=== PATIENT | female | born 1945 | race Caucasian/White ===

== ENCOUNTER 2020-07-09 16:44 | Observation (INO) | payer MEDICARE, SELFPAY ==
[2020-07-09 16:45] VITALS: BP 156/66; PULSE 75; RESP 19; TEMP 36.4; O2SAT 98; BMI 36.5
--- NOTE | 2020-07-09 17:13 | ED.DCSUM_ITS ---
History of Present Illness Chief Complaint: Wound Informant: Patient Narrative: Patient presents with family for evaluation of wounds to her buttocks. Patient apparently had been living with family in [place] until the first of this month. She just moved up here with family. Family states that patient was initially able to ambulate some with a walker but over the past week or so has become more weak and now cannot ambulate at all. They went to change her depends tonight and noted blood in her diaper. They do not note this is coming from the rectum or from some sores that she has on her buttocks. Patient states she is really not been evaluated by a doctor in a couple of years. Past Medical History - Allergies and Home Meds Allergies/Adverse Reactions: Allergies Iodinated Contrast Media [CONTRASTS] Allergy (Verified 07/09/20 16:53) PT UNSURE OF REACTION simvastatin Allergy (Verified 07/09/20 16:53) PT UNSURE OF REACTION valdecoxib Allergy (Verified 07/09/20 16:53) PT UNSURE OF REACTION DIDOFENAC Allergy (Uncoded 07/09/20 16:53) PT UNSURE OF REACTION Surgical History: - - Prior colostomy with reversal Lives: With Family Review of Systems General: Denies: Chills, Fever Eyes: Denies: Visual changes - bilaterally ENT: Denies: Bilateral ear pain Cardiovascular: Denies: Chest pain Respiratory: Denies: Dyspnea, Cough Gastrointestinal: Denies: Abdominal pain, Vomiting Genitourinary: Denies: Dysuria Hematologic: Denies: Easy bruising, Easy bleeding Allergy: Denies: Uticaria Physical Exam Vital Signs/Narrative: Vital Signs Temp Pulse Resp BP Pulse Ox 07/09/20 16:45 97.6 F L 75 19 H 156/66 H 98 Inital Vital Signs reviewed: Yes General: Well nourished, Well developed Head: Normocephalic Neck: Supple Cardiovascular: Regular rate, Regular rhythm Respiratory: No distress, CTA bilaterally Abdomen: Soft, Nontender, Normal bowel sounds Back: - - 3 areas of skin breakdown on the buttocks. The largest measures 6 cm in length by 1 cm in width. No tunneling noted. 2 smaller wounds only a centimeter or so in diameter. Neurological: Alert, Oriented x3, - - Generalized weakness Psychological: Normal affect Diagnostic/Tx/Re-eval Laboratory Results 07/09/20 07/09/20 17:30 17:30 WBC 6.1 RBC 4.26 Hgb 12.9 Hct 41.4 MCV 97.2 MCH 30.3 MCHC 31.2 L RDW Std Deviation 46.9 H RDW Coeff of Ramesh 13.2 Plt Count 202 MPV 10.7 Immature Gran % (Auto) 0.200 Neut % (Auto) 64.6 Lymph % (Auto) 26.7 [place] % (Auto) 6.9 Eos % (Auto) 1.3 Baso % (Auto) 0.3 Absolute Neuts (auto) 3.9 Absolute Lymphs (auto) 1.62 Nucleated RBC % 0 Sodium 141 Potassium 4.3 Chloride 109 H Carbon Dioxide 27.0 Anion Gap 5 BUN 30 H Creatinine 0.98 Estim Creat Clear Calc 59.65 Est GFR (MDRD) Af Amer 72 Est GFR (MDRD) Non-Af 59 L BUN/Creatinine Ratio 30.7 H Glucose 112 H Calcium 8.3 L - Medical Decision Making Patient is feeling about bedside is asking if patient can be admitted so that she has time to get the appropriate supplies at her home to care for the patient. I think this is reasonable. She will require local wound care and physical therapy evaluation. Patient was discussed with the hospitalist. Mayito: Just after the patient went to the floor her urinalysis returned with evidence of infection. I spoke with hospitalist who will place the patient on antibiotics. ED Disposition - Plan for ED Patient: Disposition: Home or Assisted Living Diagnosis: Pressure sore, Unable to ambulate, UTI (urinary tract infection)
[2020-07-09 17:41] LABS: Absolute Lymphocyte Count 1.62 X10^3/uL (0.83-4.51); Absolute Neutrophil Count 3.9 X10^3/uL (2.0-7.7); Basophil# 0.02 X10^3/uL; Basophil% 0.3 % (0-1); Eosinophil# 0.08 X10^3/uL; Eosinophils% 1.3 % (0-5); Hematocrit 41.4 % (37-47); Hemoglobin 12.9 g/dL (12.0-15.0); Lymphocyte # 1.62 X10^3/ul (4.0); Lymphocyte % 26.7 % (19-41); Mean Corp Hgb Conc 31.2 g/dL (32-36); Mean Corpuscular Hgb 30.3 pg (27.0-32.0); Mean Corpuscular Volume 97.2 fL (81-99); Mean Platelet Vol. 10.7 fl (6.2-12.0); Monocyte# 0.42 X10^3/uL; Monocyte% 6.9 % (0-10); NRBC Flagged by Analyzer 0 % (0-5); Neutrophil # 3.92 X10^3/uL (2.7-7.7); Neutrophil % 64.6 % (47-70); Platelet Count 202 K/mm3 (150-450); RBC Distribution Width CV 13.2 % (11.6-14.6); RBC Distribution Width SD 46.9 fl (35.1-43.9); Red Blood Count 4.26 M/mm3 (4.2-5.4); White Blood Count 6.1 K/mm3 (4.4-11.0)
[2020-07-09 17:55] LABS: Anion Gap 5 (5-15); BUN 30 mg/dL (7-18); BUN/Creat Ratio 30.7 RATIO (10-20); Calcium,Total 8.3 mg/dL (8.5-10.1); Chloride 109 mmol/L (98-107); Creatinine, Serum 0.98 mg/dL (0.55-1.02); EST Glomerular Filtration Rate 59 mL/min (>60); Est Glom Filt Rate - Afr Amer 72 mL/min (>60); Estimated Creatinine Clearance 59.65 ml/min; Glucose 112 mg/dL (74-106); Potassium 4.3 mmol/L (3.5-5.1); Sodium Level 141 mmol/L (136-145)
[2020-07-09 18:34] LABS: Mucous, Urine 0 SEEN /hpf (<or=2+); Squamous Epithelial Cells - UA 0 SEEN /hpf (5-10)
--- NOTE | 2020-07-09 18:34 | HP.PCM_ITS ---
Problem List (1) Adult failure to thrive Status: Acute (2) Elevated BP without diagnosis of hypertension Status: Acute (3) Wound of right buttock Status: Acute Qualifiers: Encounter type: initial encounter Qualified Code(s): S31.819A - Unspecified open wound of right buttock, initial encounter (4) PVD (peripheral vascular disease) Status: Chronic (5) Obesity (BMI 30.0-34.9) Status: Chronic (6) Osteoarthritis Status: Chronic Qualifiers: Osteoarthritis location: unspecified site Osteoarthritis type: unspecified Qualified Code(s): M19.90 - Unspecified osteoarthritis, unspecified site History of Present Illness Date of Admission: 07/09/20 Chief Complaint: Failure to Thrive, Adult, Decubitous wounds The patient is a 74 y/o F w/ PMHx: Severe OA BL LE w/ difficulty ambulating, Obesity, History of BL LE lymphedema, recently moved from [place] where she had been with family and she notes they had not been taking her to see physicians nor assisting her with daily ADLs, frequently noted to be in bed with onset bedsores with worsening debility, family unable to help her ambulate requiring 2 person assist prompting family here in [place] with whom she recently moved in with bring her to the ED. Family was concerned especially because on the evening of presentation she was noted to have blood in her depends and they were not sure if it was from her rectum or her buttock wound. In the ED she has obvious occasional bleeding from a stage III buttock, right buttock wound. Work- up in the ED included T 97.6, HR 75, BP 156/66-->138/77, RR 18, 99% on RA, CBC w/ WBC 6.1, Hgb 12.9, Plts 202 without shift, BMP w/ Chl 109, BUN/Cr 30/0.98, Glucose 112. Past Medical History Past Medical History (Chronic Problems): Chronic Problems PVD (peripheral vascular disease) (Chronic) Obesity (BMI 30.0-34.9) (Chronic) Osteoarthritis (Chronic) Allergies Iodinated Contrast Media [CONTRASTS] Allergy (Verified 07/09/20 16:53) PT UNSURE OF REACTION simvastatin Allergy (Verified 07/09/20 16:53) PT UNSURE OF REACTION valdecoxib Allergy (Verified 07/09/20 16:53) PT UNSURE OF REACTION DIDOFENAC Allergy (Uncoded 07/09/20 16:53) PT UNSURE OF REACTION Home Medications: Ambulatory Orders Medication Instructions Recorded NK 07/09/20 Surgical History: - - Prior colostomy with reversal secondary to history of C scope mediated colonic perforation with partial bowel resection, appendectomy, hysterectomy, tonsillectomy.. Psychiatric History: No pertinent psych hx DIRECTOR OF CHILD [employer]EL[employer] History: No pertinent DIRECTOR OF CH[employer]EL[employer] history Lives: With Family - Patient currently transition from family [place] to family here in [place]. Smoking Status: Never smoker Tobacco Use: Secondhand - Patient never an active smoker herself but heavy secondhand exposure since childhood including her father and 2 's. Alcohol: None Drugs: None - *Family History Maternal History Items: Cancer Paternal History Items: - - Patient does not know any of her paternal family history. Review of Systems Constitutional: Reports: Weakness, Fatigue. Denies: Anorexia, Chills, Fever, Malaise, Weight Change HEENT: Denies: Head Aches, Sinus Congestion, Sinus Drainage Cardiovascular: Denies: Chest Pain, Palpitations Respiratory: Denies: Cough, Shortness of breath at rest, Sputum production Gastrointestinal: Denies: Abdominal Pain, Nausea, Vomiting Genitourinary: Denies: Dysuria Musculoskeletal: Reports: Joint Pain. Denies: Joint Tenderness Skin: Reports: Skin Changes, Wounds. Denies: Rash Neurological: Denies: Numbness, Tingling, Focal weakness Psychiatric: Denies: Anxiety, Depression, Homicidal Ideations, Suicidal Ideations Hematologic/ Lymphatic: Denies: Easy Bruising, Easy Bleeding VTE Information - Inpt Only VTE Present on Admission: No VTE Mechan Device Prophylaxis: SCD's VTE Pharm Prophylaxis ordered?: Yes Patient Problems: Active and Suspected Problems Pressure sore (Acute) Unable to ambulate (Acute) UTI (urinary tract infection) (Acute) Elevated BP without diagnosis of hypertension (Acute) Wound of right buttock (Acute) Adult failure to thrive (Acute) Subjective: Patient laying in the ED bed, no acute distress, conversing, very talkative. Objective: Physical Examination: General: awake, alert, oriented x 3 and cooperative, seated upright in the ED bed, no acute distress. Skin: normal color, turgor, no icterus, cyanosis except noted bilateral lower extremity stasis disease as well as right buttock approximate 6 x 1 cm nontunneling stasis wound with no infected appearance with some cracking and with movement some active small bleeding noted. HEENT: AT/NC, EOMI, PERRLA, MMM, no carotid bruits or JVD noted. Lungs: Diminished breath sounds, greater bases, appropriate effort, no rales, ronchi or wheezing. Heart: Regular rate and rhythm; no gallop, rub audible. Abdomen: soft, obese, NTTP, ND, distant normal BS, no HSM. Extremities: no cyanosis or clubbing, minimal ankle nonpitting edema, see skin. Neurological: patient awake, alert, oriented as noted; cognitive function intact; pupils equally reactive to light and accomodation; cranial nerves II-XII grossly normal, moving all 4 extremities, no focal deficits, strength moderately to severely global decrease secondary to severe osteoarthritis, debility. Psychiatric: affect appears very talkative, normal, no acute evidence of depressive or anxiety feelings. - Physical Exam Vitals/I&O's: Vital Signs Temp Pulse Resp BP Pulse Ox 97.6 F L 75 19 H 156/66 H 98 07/09/20 16:45 07/09/20 16:45 07/09/20 16:45 07/09/20 16:45 07/09/20 16:45 Oxygen Delivery Method Room Air Weight: 162 lb 14.746 oz Body Mass Index (BMI) 36.5 Laboratory Results 07/09/20 17:30: WBC 6.1, RBC 4.26, Hgb 12.9, Hct 41.4, MCV 97.2, MCH 30.3, MCHC 31.2 L, RDW Std Deviation 46.9 H, RDW Coeff of Ramesh 13.2, Plt Count 202, MPV 10.7, Immature Gran % (Auto) 0.200, Neut % (Auto) 64.6, Lymph % (Auto) 26.7, [place] % (Auto) 6.9, Eos % (Auto) 1.3, Baso % (Auto) 0.3, Absolute Neuts (auto) 3.9, Absolute Lymphs (auto) 1.62, Nucleated RBC % 0 07/09/20 17:30: Sodium 141, Potassium 4.3, Chloride 109 H, Carbon Dioxide 27.0, Anion Gap 5, BUN 30 H, Creatinine 0.98, Estim Creat Clear Calc 59.65, Est GFR (MDRD) Af Amer 72, Est GFR (MDRD) Non-Af 59 L, BUN/Creatinine Ratio 30.7 H, Glucose 112 H, Calcium 8.3 L Assessment/Plan All Active Problems Pressure sore (Acute) Unable to ambulate (Acute) UTI (urinary tract infection) (Acute) Elevated BP without diagnosis of hypertension (Acute) Wound of right buttock (Acute) Adult failure to thrive (Acute) The patient is a 74 y/o F w/ PMHx: Severe OA BL LE w/ difficulty ambulating, Obesity, History of BL LE lymphedema, recently moved from [place] where she had been with family and she notes they had not been taking her to see physicians nor assisting her with daily ADLs, frequently noted to be in bed with onset bedsores with worsening debility. 1. Adult failure to thrive complicated by Severe OA, Wheelchair/Bed near bound: Patient with recent transition from family in [place] where from description she was receiving minimal care to family here in [place], will admit to medical surgical floor, will continue frequent every 2 position changes to offload right buttock wounds, wound RN consulted, dressings to assist especially with noted occasional active bleeding with positional changes, no obvious infection, will need referral at discharge for podiatry as poor foot care, pending UA upon evaluation, PT, OT, case management consultations for discharge planning as patient may benefit from skilled facility prior to transition back to family. 2. Elevated BP without hypertensive diagnosis: Patient denies any hypertensive history, previously on as needed Lasix but she notes this was secondary to lower extremity swelling which she denies having currently, continue to monitor and add regimen if appropriate. As needed IV hydralazine. 3. Stage III right buttock wound: We will offload, positional changes, wound RN consultation, dressing changes, no obvious infection, barrier cream and devices as needed. Does have some small fresh bleeding when moved secondary to cracking open. No tunneling noted. 4. Bilateral lower extremity stasis disease: Mild bilateral lower extremity venous stasis disease, will cautious add aspirin monitor small amount of active bleeding from a buttock wound especially with movements, cracking open but would benefit from adding this once appropriate. 5. Obesity: Weight loss and lifestyle changes encouraged. 6. DVT prophylaxis: SCDs, Lovenox cautiously as noted. OBSV E&M: 26923 Initial observation care L3
[2020-07-09 18:36] LABS: Color, Urine Yellow (Yellow); Glucose, Dipstick Normal (Normal); Ketone-Dipstick Negative (Negative); Leukocyte Esterase-Dipstick 500 /ul (Negative); Nitrite-Dipstick Positive (Negative); Occult Blood-Urine 25 /ul (Negative); Protein-Dipstick 15 mg/dl (Negative); Urine Bilirubin Dipstick Negative (Negative); Urine Clarity Cloudy (Clear); Urine Urobilinogen Normal (Normal)
[2020-07-09 18:45] LABS: Bacteria 4+ /hpf (None Seen); Red Blood Cells-Urine 0-5 SEEN /hpf (0-5); White Blood Cells 50-100 SEEN /hpf (0-5)
[2020-07-09 18:58] VITALS: BP 113/83; PULSE 73; RESP 13; TEMP 36.8; O2SAT 95
[2020-07-09 20:19] VITALS: BMI 33.5
[2020-07-09 20:20] VITALS: BP 138/77; PULSE 62; RESP 18; TEMP 36.7; O2SAT 99
[2020-07-09 20:28] VITALS: BMI 33.5
[2020-07-09 20:33] LABS: Magnesium 2.5 mg/dL (1.6-2.6)
[2020-07-09] MEDS: 0.9% Normal Saline 1,000 ML 100 ML IV (21:30)
[2020-07-09] MEDS: Ceftriaxone 1 GM/50 ML BAG IV (21:32)
[2020-07-09] MEDS: Famotidine 20 MG Tablet PO (21:36)
[2020-07-09] MEDS: Menthol/Lanolin/Calamine/Znox 113 GM Tube 1 APPLIC TOPICAL (21:36)
[2020-07-09 23:51] VITALS: RESP 16; O2SAT 98
[2020-07-10] MEDS: DiphenhydrAMINE 25 MG Capsule PO (01:43)
[2020-07-10 02:20] VITALS: BP 147/53; PULSE 63; RESP 16; TEMP 36.8; O2SAT 99
[2020-07-10 06:26] LABS: Absolute Lymphocyte Count 1.87 X10^3/uL (0.83-4.51); Absolute Neutrophil Count 2.5 X10^3/uL (2.0-7.7); Basophil# 0.03 X10^3/uL; Basophil% 0.6 % (0-1); Eosinophil# 0.13 X10^3/uL; Eosinophils% 2.6 % (0-5); Hematocrit 37.1 % (37-47); Hemoglobin 11.4 g/dL (12.0-15.0); Lymphocyte # 1.87 X10^3/ul (4.0); Lymphocyte % 37.9 % (19-41); Mean Corp Hgb Conc 30.7 g/dL (32-36); Mean Corpuscular Hgb 29.5 pg (27.0-32.0); Mean Corpuscular Volume 96.1 fL (81-99); Mean Platelet Vol. 10.7 fl (6.2-12.0); Monocyte# 0.43 X10^3/uL; Monocyte% 8.7 % (0-10); NRBC Flagged by Analyzer 0 % (0-5); Neutrophil # 2.45 X10^3/uL (2.7-7.7); Neutrophil % 49.8 % (47-70); Platelet Count 184 K/mm3 (150-450); RBC Distribution Width CV 13.1 % (11.6-14.6); RBC Distribution Width SD 46.1 fl (35.1-43.9); Red Blood Count 3.86 M/mm3 (4.2-5.4); White Blood Count 4.9 K/mm3 (4.4-11.0)
[2020-07-10] MEDS: 0.9% Normal Saline 1,000 ML 100 ML IV ×2 (06:38→17:38)
[2020-07-10 06:51] LABS: ALB/GLOB Ratio 0.8 RATIO (0.9-2.4); AST(SGOT) 9 U/L (15-37); Alanine Aminotransfer ALT/SGPT 13 U/L (13-56); Albumin, Serum 2.8 g/dL (3.2-5.0); Alkaline Phosphatase 67 U/L (45-117); Anion Gap 2 (5-15); BUN 26 mg/dL (7-18); BUN/Creat Ratio 29.3 RATIO (10-20); Chloride 109 mmol/L (98-107); Creatinine, Serum 0.89 mg/dL (0.55-1.02); EST Glomerular Filtration Rate 66 mL/min (>60); Est Glom Filt Rate - Afr Amer 80 mL/min (>60); Estimated Creatinine Clearance 62.48 ml/min; Globulin 3.3 g/dL (2.2-4.2); Glucose 81 mg/dL (74-106); Potassium 4.2 mmol/L (3.5-5.1); Protein, Total 6.1 g/dL (6.4-8.2); Sodium Level 138 mmol/L (136-145)
[2020-07-10 08:42] VITALS: BP 150/81; PULSE 57; RESP 18; TEMP 36.7; O2SAT 100
[2020-07-10] MEDS: Ceftriaxone 1 GM/50 ML BAG IV (10:18)
[2020-07-10] MEDS: Menthol/Lanolin/Calamine/Znox 113 GM Tube 1 APPLIC TOPICAL ×2 (10:19→20:58)
[2020-07-10] MEDS: Famotidine 20 MG Tablet PO ×2 (10:20→20:58)
--- NOTE | 2020-07-10 10:45 | PN_ITS ---
Patient Problems: Active and Suspected Problems Pressure sore (Acute) Unable to ambulate (Acute) UTI (urinary tract infection) (Acute) Elevated BP without diagnosis of hypertension (Acute) Wound of right buttock (Acute) Adult failure to thrive (Acute) Subjective: Patient seen and examined. She was noted to be having some rectal bleeding today, which was painless. She has no other complaints, and review of systems was otherwise negative. Hemoglobin noted to have dropped from 12.9-11.4 that this may have a component of hemodilution as WBC has also dropped and platelets have also dropped. Vitals/I&O's: Vital Signs Temp Pulse Resp BP Pulse Ox 98.1 F 57 L 18 150/81 H 100 07/10/20 08:42 07/10/20 08:42 07/10/20 08:42 07/10/20 08:42 07/10/20 08:42 Oxygen Delivery Method Room Air Weight: 154 lb 15.759 oz Body Mass Index (BMI) 33.5 Intake and Output for Last 24 Hours 07/08/20 07/09/20 07/10/20 23:59 23:59 23:59 Intake Total 50 / 350 1881.66 / 1881.66 Output Total 400 / 400 Balance 50 / 350 1481.66 / 1481.66 General: Alert, Oriented x3, Cooperative, No apparent distress, - - frail HEENT: Atraumatic, PERRLA, EOMI, Normocephalic Oral: Dry Mucosa Neck: Supple, No JVD, Negative Carotid Bruits Lungs: Clear to auscultation, Normal air movement, No rhonchi, No wheeze, No rales Cardiovascular: Regular rate, Regular Rhythm, Normal S1, Normal S2, No murmurs Abdomen: Bowel Sounds Present, Soft, Non Tender, Non-Distended, No Hepato- splenomegaly Extremities: No clubbing, No cyanosis, Capillary Refill Less than 3 Seconds, - - mild 1+ bipedal edema; skin is flaky Skin: - - has stage 3 decubitus ulcer on her right buttock Musculoskeletal: No Tenderness to Palpation of Joints or Extremities Lymphatic: No Cervical, Supraclavicular, or Inguinal Adenopathy Neurological: Cranial nerves II-XII grossly intact, Neuro grossly intact, Motor Exam 5/5 strength throughout Psych/Mental Status: Normal Affect, Appropriate, Alert and oriented to time, place, person, mood and affect Laboratory Results 07/09/20 17:30: WBC 6.1, RBC 4.26, Hgb 12.9, Hct 41.4, MCV 97.2, MCH 30.3, MCHC 31.2 L, RDW Std Deviation 46.9 H, RDW Coeff of Ramesh 13.2, Plt Count 202, MPV 10.7, Immature Gran % (Auto) 0.200, Neut % (Auto) 64.6, Lymph % (Auto) 26.7, [place] % (Auto) 6.9, Eos % (Auto) 1.3, Baso % (Auto) 0.3, Absolute Neuts (auto) 3.9, Absolute Lymphs (auto) 1.62, Nucleated RBC % 0 07/09/20 17:30: Sodium 141, Potassium 4.3, Chloride 109 H, Carbon Dioxide 27.0, Anion Gap 5, BUN 30 H, Creatinine 0.98, Estim Creat Clear Calc 59.65, Est GFR (MDRD) Af Amer 72, Est GFR (MDRD) Non-Af 59 L, BUN/Creatinine Ratio 30.7 H, Glucose 112 H, Calcium 8.3 L 07/09/20 17:30: Magnesium 2.5 07/09/20 18:30: Urine Color Yellow, Urine Clarity Cloudy, Urine pH 7.0, Ur Specific Sunburst 1.010, Urine Protein 15 H, Urine Glucose (UA) Normal, Urine Ketones Negative, Urine Occult Blood 25 H, Urine Nitrite Positive H, Urine Bilirubin Negative, Urine Urobilinogen Normal, Ur Leukocyte Esterase 500 H, Urine RBC 0-5 SEEN, Urine WBC 50-100 SEEN, Ur Squamous Epith Cells 0 SEEN, Urine Bacteria 4+, Urine Mucus 0 SEEN 07/10/20 05:59: WBC 4.9, RBC 3.86 L, Hgb 11.4 L, Hct 37.1, MCV 96.1, MCH 29.5, MCHC 30.7 L, RDW Std Deviation 46.1 H, RDW Coeff of Ramesh 13.1, Plt Count 184, MPV 10.7, Immature Gran % (Auto) 0.400, Neut % (Auto) 49.8, Lymph % (Auto) 37.9, [place] % (Auto) 8.7, Eos % (Auto) 2.6, Baso % (Auto) 0.6, Absolute Neuts (auto) 2.5, Absolute Lymphs (auto) 1.87, Nucleated RBC % 0 07/10/20 05:59: Sodium 138, Potassium 4.2, Chloride 109 H, Carbon Dioxide 27.0, Anion Gap 2 L, BUN 26 H, Creatinine 0.89, Estim Creat Clear Calc 62.48, Est GFR (MDRD) Af Amer 80, Est GFR (MDRD) Non-Af 66, BUN/Creatinine Ratio 29.3 H, Glucose 81, Calcium 8.0 L, Total Bilirubin 0.50, AST 9 L, ALT 13, Alkaline Phosphatase 67, Total Protein 6.1 L, Albumin 2.8 L, Globulin 3.3, Albumin/Rekha bulin Ratio 0.8 L Current Medications Acetaminophen (Acetaminophen 325 Mg Tablet) 650 mg PO Q6H PRN PRN PRN Reason: Pain Score 1-10/Temp > 100.7 F Al Hydroxide/Mg Hydroxide (Mag Hydrox/Al Hydrox/Simeth 30 Ml Udc) 30 ml PO Q6H PRN PRN PRN Reason: Gastric Burning Albuterol Sulfate (Albuterol 2.5 Mg/3 Ml Vial.Neb.) 2.5 mg INHALATION Q2H PRN PRN PRN Reason: Dyspnea, wheezing Calamine/Phenol (Menthol/Lanolin/Calamine/Znox 113 Gm Tube) 1 applic TOPICAL 4X/DAY [facility]; Protocol Last Admin: 07/10/20 10:19 Dose: 1 applic Documented by: Diphenhydramine HCl (Diphenhydramine 25 Mg Capsule) 25 mg PO Q6H PRN PRN PRN Reason: ITCHING Famotidine (Famotidine 20 Mg Tablet) 20 mg PO BID [facility] Last Admin: 07/10/20 10:20 Dose: 20 mg Documented by: Guaifenesin (Guaifenesin 10 Ml Udc (200mg/10ml)) 20 ml PO Q4H PRN PRN PRN Reason: COUGH Hydralazine HCl (Hydralazine 20 Mg/Ml Vial) 10 mg IV Q4H PRN PRN PRN Reason: SBP > 160 Sodium Chloride () 1,000 mls @ 100 mls/hr IV .Q10H [facility] Last Infusion: 07/10/20 10:19 Dose: 0 mls/hr Documented by: Ceftriaxone Sodium (Rocephin) 1 gm in 50 mls @ 100 mls/hr IV Q24 JESSI Last Admin: 07/10/20 10:18 Dose: 100 mls/hr Documented by: Sodium Chloride () 250 mls @ 15 mls/hr IV .[id number] PRN PRN Reason: Saline Flush Sodium Chloride () 250 mls @ 15 mls/hr IV .[id number] PRN PRN Reason: Additional IVPB Infusion Magnesium Hydroxide (Magnesium Hydroxide 30 Ml Udc) 30 ml PO DAILY PRN PRN PRN Reason: Constipation Melatonin (Melatonin 3 Mg Tablet) 3 mg PO QHS PRN PRN PRN Reason: INSOMNIA Nitroglycerin (Nitroglycerin (Inpatient Use) 0.4 Mg Tab.Subl) 0.4 mg SL Q5M PRN PRN Reason: CARDIAC/CHEST PAIN Ondansetron HCl (Ondansetron 4 Mg/2 Ml Vial) 4 mg IV Q8H PRN PRN PRN Reason: NAUSEA/VOMITING Prochlorperazine Edisylate (Prochlorperazine 10 Mg/2 Ml Vial) 5 mg IV Q4H PRN PRN PRN Reason: Breakthrough nausea/vomiting Psyllium Hydrophilic Mucilloid (Psyllium 1 Packet) 1 packet PO DAILY PRN PRN PRN Reason: Constipation Senna/Docusate Sodium (Senna/Docusate Sodium 1 Tablet) 2 tablet PO BID PRN PRN PRN Reason: Constipation Sodium Chloride (0.9% Saline Lock 10 Ml Syringe) 10 - 40 ml IV UD PRN PRN Reason: SALINE FLUSH Sodium Chloride/Electrolytes (Electrolyte Solution/Peg's 4000 Ml) 2,000 ml PO X1 ONE Stop: 07/10/20 17:01 Throat Lozenges (Benzocaine/Menthol 1 Lozenge) 1 lozenge MUCOUS MEM Q2H PRN PRN PRN Reason: SORE THROAT STROKE Vital Signs/Narrative: Vital Signs Temp Pulse Resp BP Pulse Ox 07/10/20 08:42 98.1 F 57 L 18 150/81 H 100 Medical Necessity - Tobacco Use Smoking Status: Never smoker Tobacco Use: Secondhand - Patient never an active smoker herself but heavy secondhand exposure since childhood including her father and 2 's. Assessment/Plan All Active Problems Pressure sore (Acute) Unable to ambulate (Acute) UTI (urinary tract infection) (Acute) Elevated BP without diagnosis of hypertension (Acute) Wound of right buttock (Acute) Adult failure to thrive (Acute) #UTI * UA showed evidence of UTI. Currently on IV ceftriaxone. Blood and urine cultures pending. #Lower GI bleed * Patient has some rectal bleeding today. It was initially thought to be coming from her wound but per nurse, it seemed to be more of rectal bleeding. Consult general surgery. Keep n.p.o. for now. Hold all blood thinners. * Hemoglobin dropped to 11.4 from 12.9 on admission. Also lines have dropped so this may likely be hemodilution as well. * #Debility and failure to thrive * PT OT on board. Fall precautions. #Sacral decubitus ulcer * Stage III * present on admission * wound care consulted * #Obesity: BMI more than 30. Counseled on diet and lifestyle changes. DVT prophylaxis: SCDs Diet prophylaxis: Start PPI. # Inpatient E&M: 87752 Subs Hosp L2
--- NOTE | 2020-07-10 10:53 | CON.PCM_ITS ---
- Consult Date of Consult: 07/10/20 - Reason for Consult Chief Complaint: asked by hospitalists for colonoscopy for patient with rectal bleeding History of Present Illness: 74 y/o WF, essentially non ambulatory, presented to hospital because her family could not longer care for her at home. She has recently relocated from [place] to [place]. She also notes rectal bleeding. She has decubitus ulcer of her right buttock. She has intermittent cramping abdominal pain. She notes symptoms of fecal urgency and loose bowel movements, especially after eating. She had colonoscopy in [place] about 10-15 years ago, had perforation and required colostomy creation. She states that she has had numerous bowel problems since, as described above. She states that she never wants to undergo colonoscopy again. Past Medical History: decubitus ulcer generalized weakness and deconditioned Past Surgical History: Tonsillectomy tubes tied Hysterectomy colon surgery, creation of colostomy, colostomy takedown Hernia repair cataract surgery appendectomy Medications: denies taking chronic medications Allergies: IV contrast dye, simvastatin, valdecoxib Social history: TOB use denies Review of Systems: General - denies fevers, has generalized weakness Cardiovascular denies chest pain Pulmonary denies coughing up blood Gastrointestinal noted to have bright red blood per rectum, see HPI Neurological denies seizures Genitourinary denies blood in urine Hematological denies spontaneous/prolonged bleeding Skin decubitus ulcers Musculoskeletal essentially non ambulatory - severe osteopenia Endocrine denies diabetes Psychological denies hallucinations Physical examination: Vital signs Temp 98.2F BP 147/53 HR 63 RR 16 General WD/WN WF in no apparent distress, alert and oriented, not septic appearing HEENT Normocephalic. EOM intact with sclera clear . Neck is supple with no jugular venous distention noted. Trachea is midline. Lungs normal respiratory excursion, no adventitial sounds noted. No labored breathing noted, such as retractions. No cough heard. Heart regular. Abdomen soft and benign. ventral hernia noted and previous ostomy site - non tender Extremities swelling of lower extremities Genitourinary/Rectal deferred Skin .right buttock skin ulcer Neurological non focal. Psychological normal affect, patient is calm and appropriate Impression: rectal bleeding Discussion/Plan: I have discussed the above with the patient. I have offered colonoscopy, possible biopsies for evaluation. Patient refuses this. She states that she had perforation of the colon 10-15 years ago in [place] from colonoscopy and has had problems with her bowels since. She had to have emergency surgery with colostomy creation and had to deal with that for 6 months. She absolutely does not want to undergo another colonoscopy ever again. I will abide by her wishes. I have restarted a regular diet for the patient and cancelled procedure of colonoscopy. I will sign off on this case, please re-consult if any changes. .
[2020-07-10 14:25] VITALS: BP 147/62; PULSE 55; RESP 18; TEMP 36.9; O2SAT 98
[2020-07-10] MEDS: Electrolyte Solution/Peg's 4000 ML 2000 ML PO (14:28)
[2020-07-10 17:42] VITALS: BP 133/56; PULSE 59; RESP 16; TEMP 36.6; O2SAT 100
[2020-07-10 20:00] VITALS: PULSE 58
[2020-07-10 22:30] VITALS: BP 157/80; PULSE 58; RESP 16; TEMP 36.5; O2SAT 99
[2020-07-11] VITALS (11 sets, daily range): BP systolic 113–151; BP diastolic 52–85; PULSE 53–75; RESP 16–18; TEMP 36–36.8; O2SAT 97–100
[2020-07-11] MEDS: 0.9% Normal Saline 1,000 ML 100 ML IV ×2 (04:48→15:59)
[2020-07-11 06:04] LABS: Absolute Lymphocyte Count 1.79 X10^3/uL (0.83-4.51); Absolute Neutrophil Count 2.1 X10^3/uL (2.0-7.7); Basophil# 0.03 X10^3/uL; Basophil% 0.7 % (0-1); Eosinophil# 0.14 X10^3/uL; Eosinophils% 3.2 % (0-5); Hematocrit 40.3 % (37-47); Hemoglobin 12.4 g/dL (12.0-15.0); Lymphocyte # 1.79 X10^3/ul (4.0); Lymphocyte % 40.4 % (19-41); Mean Corp Hgb Conc 30.8 g/dL (32-36); Mean Corpuscular Hgb 30.1 pg (27.0-32.0); Mean Corpuscular Volume 97.8 fL (81-99); Mean Platelet Vol. 10.5 fl (6.2-12.0); Monocyte# 0.33 X10^3/uL; Monocyte% 7.4 % (0-10); NRBC Flagged by Analyzer 0 % (0-5); Neutrophil # 2.13 X10^3/uL (2.7-7.7); Neutrophil % 48.1 % (47-70); Platelet Count 190 K/mm3 (150-450); RBC Distribution Width SD 46.5 fl (35.1-43.9); Red Blood Count 4.12 M/mm3 (4.2-5.4); White Blood Count 4.4 K/mm3 (4.4-11.0)
[2020-07-11 06:27] LABS: Anion Gap 4 (5-15); BUN 14 mg/dL (7-18); BUN/Creat Ratio 18.5 RATIO (10-20); Calcium,Total 8.2 mg/dL (8.5-10.1); Chloride 110 mmol/L (98-107); Creatinine, Serum 0.76 mg/dL (0.55-1.02); EST Glomerular Filtration Rate 80 mL/min (>60); Est Glom Filt Rate - Afr Amer 97 mL/min (>60); Estimated Creatinine Clearance 56.08 ml/min; Glucose 78 mg/dL (74-106); Potassium 4.2 mmol/L (3.5-5.1); Sodium Level 141 mmol/L (136-145)
--- NOTE | 2020-07-11 10:44 | PCM.PN.HOSP ---
Patient Problems: Active and Suspected Problems Pressure sore (Acute) Unable to ambulate (Acute) UTI (urinary tract infection) (Acute) Elevated BP without diagnosis of hypertension (Acute) Wound of right buttock (Acute) Adult failure to thrive (Acute) Reason for Visit: Follow-up on acute UTI/debility/failure to thrive/GI bleed Subjective: Patient was seen and examined. Denied any new complaint. She is going for colonoscopy today. She denies any fever or chills. Objective: Physical exam: General: Alert, Oriented x3, Cooperative, No apparent distress, obese HEENT: Atraumatic, PERRLA, EOMI, Normocephalic Oral: Moist Mucosa Neck: Supple Lungs: Normal air movement, Diminished Cardiovascular: Regular rate, Regular Rhythm, Normal S1, Normal S2, No murmurs Abdomen: Bowel Sounds Present, Soft, Non Tender, Non-Distended, No Hepato-splenomegaly Extremities: Bilateral pedal edema +1, Skin: No rashes Vitals/I&O's: Vital Signs Temp Pulse Resp BP Pulse Ox 97.9 F 60 18 151/85 H 100 07/11/20 09:44 07/11/20 09:44 07/11/20 09:44 07/11/20 09:44 07/11/20 09:44 Oxygen Delivery Method Room Air Weight: 70.9 kg Body Mass Index (BMI) 33.5 Intake and Output for Last 24 Hours 07/09/20 07/10/20 07/11/20 23:59 23:59 23:59 Intake Total 50 / 350 3673.33 / 3673.33 1000 / 1000 Output Total 625 / 625 Balance 50 / 350 3048.33 / 3048.33 1000 / 1000 Microbiology Past 72 Hours 07/11/20 07:52 Mucosa - Nose SARS-CoV-2 Antigen (Rapid) - Final Laboratory Results 07/11/20 05:48: WBC 4.4, RBC 4.12 L, Hgb 12.4, Hct 40.3, MCV 97.8, MCH 30.1, MCHC 30.8 L, RDW Std Deviation 46.5 H, RDW Coeff of Ramesh 13.0, Plt Count 190, MPV 10.5, Immature Gran % (Auto) 0.200, Neut % (Auto) 48.1, Lymph % (Auto) 40.4, [place] % (Auto) 7.4, Eos % (Auto) 3.2, Baso % (Auto) 0.7, Absolute Neuts (auto) 2.1, Absolute Lymphs (auto) 1.79, Nucleated RBC % 0 07/11/20 05:48: Sodium 141, Potassium 4.2, Chloride 110 H, Carbon Dioxide 27.0, Anion Gap 4 L, BUN 14, Creatinine 0.76, Estim Creat Clear Calc 56.08, Est GFR (MDRD) Af Amer 97, Est GFR (MDRD) Non-Af 80, BUN/Creatinine Ratio 18.5, Glucose 78, Calcium 8.2 L Current Medications Acetaminophen (Acetaminophen 325 Mg Tablet) 650 mg PO Q6H PRN PRN PRN Reason: Pain Score 1-10/Temp > 100.7 F Al Hydroxide/Mg Hydroxide (Mag Hydrox/Al Hydrox/Simeth 30 Ml Udc) 30 ml PO Q6H PRN PRN PRN Reason: Gastric Burning Albuterol Sulfate (Albuterol 2.5 Mg/3 Ml Vial.Neb.) 2.5 mg INHALATION Q2H PRN PRN PRN Reason: Dyspnea, wheezing Calamine/Phenol (Menthol/Lanolin/Calamine/Znox 113 Gm Tube) 1 applic TOPICAL 4X/DAY [facility]; Protocol Last Admin: 07/10/20 20:58 Dose: 1 applic Documented by: Diphenhydramine HCl (Diphenhydramine 25 Mg Capsule) 25 mg PO Q6H PRN PRN PRN Reason: ITCHING Famotidine (Famotidine 20 Mg Tablet) 20 mg PO BID [facility] Last Admin: 07/10/20 20:58 Dose: 20 mg Documented by: Guaifenesin (Guaifenesin 10 Ml Udc (200mg/10ml)) 20 ml PO Q4H PRN PRN PRN Reason: COUGH Hydralazine HCl (Hydralazine 20 Mg/Ml Vial) 10 mg IV Q4H PRN PRN PRN Reason: SBP > 160 Sodium Chloride () 1,000 mls @ 100 mls/hr IV .Q10H [facility] Last Admin: 07/11/20 04:48 Dose: 100 mls/hr Documented by: Ceftriaxone Sodium (Rocephin) 1 gm in 50 mls @ 100 mls/hr IV Q24 [facility] Last Infusion: 07/10/20 10:50 Dose: Infused Documented by: Sodium Chloride () 250 mls @ 15 mls/hr IV .[id number] PRN PRN Reason: Saline Flush Sodium Chloride () 250 mls @ 15 mls/hr IV .[id number] PRN PRN Reason: Additional IVPB Infusion Pantoprazole Sodium 40 mg/ (Sodium Chloride) 110 mls @ 330 mls/hr IV Q24 [facility] Last Infusion: 07/10/20 12:45 Dose: Infused Documented by: Magnesium Hydroxide (Magnesium Hydroxide 30 Ml Udc) 30 ml PO DAILY PRN PRN PRN Reason: Constipation Melatonin (Melatonin 3 Mg Tablet) 3 mg PO QHS PRN PRN PRN Reason: INSOMNIA Nitroglycerin (Nitroglycerin (Inpatient Use) 0.4 Mg Tab.Subl) 0.4 mg SL Q5M PRN PRN Reason: CARDIAC/CHEST PAIN Ondansetron HCl (Ondansetron 4 Mg/2 Ml Vial) 4 mg IV Q8H PRN PRN PRN Reason: NAUSEA/VOMITING Prochlorperazine Edisylate (Prochlorperazine 10 Mg/2 Ml Vial) 5 mg IV Q4H PRN PRN PRN Reason: Breakthrough nausea/vomiting Psyllium Hydrophilic Mucilloid (Psyllium 1 Packet) 1 packet PO DAILY PRN PRN PRN Reason: Constipation Senna/Docusate Sodium (Senna/Docusate Sodium 1 Tablet) 2 tablet PO BID PRN PRN PRN Reason: Constipation Sodium Chloride (0.9% Saline Lock 10 Ml Syringe) 10 - 40 ml IV UD PRN PRN Reason: SALINE FLUSH Throat Lozenges (Benzocaine/Menthol 1 Lozenge) 1 lozenge MUCOUS MEM Q2H PRN PRN PRN Reason: SORE THROAT STROKE Vital Signs/Narrative: Vital Signs Temp Pulse Resp BP Pulse Ox 07/11/20 09:44 97.9 F 60 18 151/85 H 100 07/11/20 07:04 97 Medical Necessity - Tobacco Use Smoking Status: Never smoker Tobacco Use: Secondhand - Patient never an active smoker herself but heavy secondhand exposure since childhood including her father and 2 's. Assessment/Plan All Active Problems Pressure sore (Acute) Unable to ambulate (Acute) UTI (urinary tract infection) (Acute) Elevated BP without diagnosis of hypertension (Acute) Wound of right buttock (Acute) Adult failure to thrive (Acute) 1. Acute lower GI bleed, Hb stable General surgery consulted for colonoscopy, continue on famotidine 2. Acute E. coli UTI, continue on IV ceftriaxone, await speciation 3. Stage III sacral decubitus ulcers, and RN consulted 4. DVT prophylaxis with SCDs Inpatient E&M: 19354 Subs Hosp L2
--- NOTE | 2020-07-11 11:00 | CASEMGMT ---
JOSE ALBERTO ABDI Assessment: Face to Face with pt for initial transition planning/care coordination assessment. JOSE ALBERTO ABDI introduced self and role at [facility], pt voices understanding and consents to assessment. Pt is A/O x4 and answers all questions appropriately at this time. Pt sitting up in chair in no distress, very talkative. Care providers, pharmacy, and demographics verified/updated. Admitting Dx: FTT, chronic decubitus PCP: Pt recently moved from [place] and has not established a PCP yet. States her daughter in law is working to get her into Umberto Aquino's office. Provided list of local PCP's. Specialists: Pt denies having specialists. Preferred Pharmacy: Pt has not yet established a pharmacy. Insurance: [facility] Prescription Benefit: yes LW/HPOA: Pt states she is going to get her LW and DPOA set up. Denies need for further info regarding AD. LNOK: Son Davie Frost and daughter in law Fabi Frost Living Arrangements: Pt lives in a ground level apt with 1 step to enter. Pt lives alone but her daughter in law comes daily to check on her. Pt needs assistance from daughter in law with bathing and lower body dressing. Pt denies concerns at home. Transportation: Pt states her son is able to provide transportation and denies concerns with transportation. DME/HHC/SNF: Pt states she has a walker at home. Recently purchased a shower chair but it was too tall so it was returned. She states she has had HHC while in [place]. Currently pt dtr in law manages pt wounds daily with dressing changes. She has stayed in [facility] and [facility] prior to her leaving to go to [place]. Pt states she moved her 2 wks ago. She states she would like to go home and is open to HHC but is unsure if that will be enough for her. She is open to a short stay for rehab in SNF if it is recommended. Notified Jonah GAMEZ. Pt states no further concerns/needs. CM to follow therapy and need for HHC vs SNF. Advised pt to ask CM if any further question/concerns/needs arise, voices understanding. Pt Goal: Home with HHC or SNF if recommended Plan: TBD based on therapy recommendations. 1125-RN JIN in to discuss GARCIA form with patient. JOSE ALBERTO ABDI explained GARCIA form, patient voiced understanding. Pt signed form and filed in chart. Pt provided with a copy of signed GARCIA form. Patient had no further questions or concerns at this time.
[2020-07-11] MEDS: Menthol/Lanolin/Calamine/Znox 113 GM Tube 1 APPLIC TOPICAL ×3 (11:26→20:42)
[2020-07-11] MEDS: Ceftriaxone 1 GM/50 ML BAG IV (11:26)
--- NOTE | 2020-07-11 14:27 | NURSING ---
Was asked to see patient for pressure injury to the right buttock. Pt had been up in the chair earlier when this nurse tried to assess wound. pt is currently off the unit for a procedure. A Mepilex dressing had been applied last pm so this nurse will attempt to assess either later today or tomorrow am.
--- NOTE | 2020-07-11 15:08 | OP.COLON_ITS ---
Patient Name: Lore Fournier Procedure Date: 07/11/2020 2:05 PM Date of : 1945 Age: 74 Procedure: Colonoscopy Indications: Rectal bleeding Providers: Debora Perez MD Medicines: See the Anesthesia note for documentation of the administered medications Patient Profile: Refer to note in patient chart for documentation of history and physical. Last Colonoscopy: more than 10 years ago. Complications: No immediate complications. Procedure: Pre-Anesthesia Assessment: - see anesthesia note After I obtained informed consent, the scope was passed under direct vision. Throughout the procedure, the patient's blood pressure, pulse, and oxygen saturations were monitored continuously. The colonoscope was introduced through the anus and advanced to the cecum, identified by the appendiceal orifice, IC valve and transillumination. The colonoscopy was performed without difficulty. The patient tolerated the procedure well. The quality of the bowel preparation was poor, there was still retained fecal material. Therefore lavage and aspiration was done to clear the fecal material. This took some time. The jeter were cleared adequately. Scope In: 2:50:22 PM Scope Withdrawal Time 0 hours 5 minutes 45 seconds Scope Out: 3:01:35 PM Total Procedure Duration Time 0 hours 11 minutes 13 seconds Findings: The perianal and digital rectal examinations were normal. Multiple small and large-mouthed diverticula were found in the entire colon. Non-bleeding external and internal hemorrhoids were found. Impression: - Diverticulosis in the entire examined colon. - Non-bleeding external and internal hemorrhoids. - No specimens collected. Recommendation: - Return patient to hospital quick for ongoing care. - Resume previous diet. - No repeat colonoscopy due to current age (66 years or older). - Continue present medications. Procedure Code(s): --- Professional --- 14263, Colonoscopy, flexible; diagnostic, including collection of specimen(s) by brushing or washing, when performed (separate procedure) Diagnosis Code(s): --- Professional --- K64.8, Other hemorrhoids K62.5, Hemorrhage of anus and rectum K57.30, Diverticulosis of large intestine without perforation or abscess without bleeding CPT copyright 2017 [place] [employer]. All rights reserved. The codes documented in this report are preliminary and upon rotary peel oven tender review may be revised to meet current compliance requirements. MD Debora Hamilton MD 07/11/2020 3:08:39 PM This report has been signed electronically. Number of Addenda: 0 Note Initiated On: 07/11/2020 2:05 PM
--- NOTE | 2020-07-11 15:09 | OP.CCLET_ITS ---
07/11/2020 Umberto Aquino MD [address] [place] [address] Re : Colonoscopy procedure for Lore Fournier Dear Dr. Aquino This procedure was performed on Saturday, July 11, 2020. My impressions and recommendations are as follows: Impressions : - Diverticulosis in the entire examined colon. - Non-bleeding external and internal hemorrhoids. - No specimens collected. Recommendations : - Return patient to hospital quick for ongoing care. - Resume previous diet. - No repeat colonoscopy due to current age (66 years or older). - Continue present medications. My findings are described in the full procedure note, which is enclosed. If I can be of further assistance, please feel free to contact me at Doctor phone number(s): , Work: . Sincerely, MD Debora Hamilton MD 07/11/2020 3:08:39 PM This report has been signed electronically.
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
[2020-07-11] MEDS: 0.9% Saline Lock 10 ML Syringe IV (16:03)
[2020-07-11] MEDS: Acetaminophen 325 MG Tablet 650 MG PO (20:40)
[2020-07-11] MEDS: Famotidine 20 MG Tablet PO (20:41)
[2020-07-12] VITALS (8 sets, daily range): BP systolic 126–181; BP diastolic 46–75; PULSE 55–78; RESP 16–18; TEMP 36.4–37.4; O2SAT 96–98
[2020-07-12] MEDS: 0.9% Normal Saline 1,000 ML 100 ML IV ×3 (01:19→20:45)
[2020-07-12 06:10] LABS: Absolute Lymphocyte Count 1.54 X10^3/uL (0.83-4.51); Basophil# 0.02 X10^3/uL; Basophil% 0.5 % (0-1); Eosinophil# 0.13 X10^3/uL; Eosinophils% 3.2 % (0-5); Hemoglobin 10.7 g/dL (12.0-15.0); Lymphocyte # 1.54 X10^3/ul (4.0); Lymphocyte % 37.7 % (19-41); Mean Corp Hgb Conc 30.6 g/dL (32-36); Mean Platelet Vol. 10.5 fl (6.2-12.0); Monocyte# 0.37 X10^3/uL; Monocyte% 9.1 % (0-10); NRBC Flagged by Analyzer 0 % (0-5); Neutrophil # 2.01 X10^3/uL (2.7-7.7); Neutrophil % 49.3 % (47-70); Platelet Count 172 K/mm3 (150-450); RBC Distribution Width SD 46.5 fl (35.1-43.9); Red Blood Count 3.57 M/mm3 (4.2-5.4); White Blood Count 4.1 K/mm3 (4.4-11.0)
[2020-07-12 06:36] LABS: ALB/GLOB Ratio 0.9 RATIO (0.9-2.4); AST(SGOT) 10 U/L (15-37); Alanine Aminotransfer ALT/SGPT 13 U/L (13-56); Albumin, Serum 2.5 g/dL (3.2-5.0); Alkaline Phosphatase 58 U/L (45-117); Anion Gap 3 (5-15); BUN 12 mg/dL (7-18); BUN/Creat Ratio 12.2 RATIO (10-20); Chloride 113 mmol/L (98-107); Creatinine, Serum 0.98 mg/dL (0.55-1.02); EST Glomerular Filtration Rate 59 mL/min (>60); Est Glom Filt Rate - Afr Amer 71 mL/min (>60); Estimated Creatinine Clearance 57.14 ml/min; Globulin 2.9 g/dL (2.2-4.2); Glucose 85 mg/dL (74-106); Potassium 4.1 mmol/L (3.5-5.1); Protein, Total 5.4 g/dL (6.4-8.2); Sodium Level 141 mmol/L (136-145)
--- NOTE | 2020-07-12 08:40 | NURSING ---
wound photo: right buttock/jade cleft
[2020-07-12] MEDS: Famotidine 20 MG Tablet PO ×2 (08:55→20:46)
[2020-07-12] MEDS: Acetaminophen 325 MG Tablet 650 MG PO (08:55)
[2020-07-12] MEDS: Ceftriaxone 1 GM/50 ML BAG IV (10:24)
--- NOTE | 2020-07-12 10:26 | CASEMGMT ---
Social Work Note VERA placed a call to Dione with TCU. Dione states she will have physician review referral and then will let this worker know if TCU is able to accept pt. VERA waiting for call back from Dione with TCU. Plan: TCU pending acceptance and pre-cert Fidelina Shirley PERIANESTHESIA MANAGER, APARTMENT MANAGER
--- NOTE | 2020-07-12 11:56 | CASEMGMT ---
Addendum entered by Fidelina Shirley 07/12/20 12:46: SW received call from [facility] with TCU stating TCU is able to accept pt, will submit for pre-cert. Plan: TCU pending pre-cert Original Note: Social Work Note SW in to speak with pt. SW introduced self and role at [facility]. Pt states she remembers talking to this worker from yesterday. SW updated pt that plan is TCU pending acceptance and pre-cert. Pt states understanding. SW asked pt about completing advanced directives. Pt states she is eating lunch at this time, would like to complete documents, but after her lunch. SW informed pt that this worker will be back as time allows to complete advanced directives. Pt states understanding. Plan: TCU pending acceptance and pre-cert Fidelina Shirley SALES ASSOCIATE KEY HOLDER, EXHAUST EQUIPMENT OPERATOR
--- NOTE | 2020-07-12 13:33 | PN_ITS ---
Patient Problems: Active and Suspected Problems Pressure sore (Acute) Unable to ambulate (Acute) UTI (urinary tract infection) (Acute) Elevated BP without diagnosis of hypertension (Acute) Wound of right buttock (Acute) Adult failure to thrive (Acute) Reason for Visit: Follow-up on acute UTI/debility/failure to thrive/GI bleed Subjective: Patient was seen and examined. Denies any new complaints. Waiting on insurance pre-CERT for discharge. Seen wound RN pictures Objective: Physical exam: General: Alert, Oriented x3, Cooperative, No apparent distress, obese HEENT: Atraumatic, PERRLA, EOMI, Normocephalic Oral: Moist Mucosa Neck: Supple Lungs: Normal air movement, Diminished Cardiovascular: Regular rate, Regular Rhythm, Normal S1, Normal S2, No murmurs Abdomen: Bowel Sounds Present, Soft, Non Tender, Non-Distended, No Hepato- splenomegaly Extremities: Bilateral pedal edema +1, Skin: No rashes Vitals/I&O's: Vital Signs Temp Pulse Resp BP Pulse Ox 99.3 F H 57 L 18 159/64 H 96 07/12/20 08:42 07/12/20 08:42 07/12/20 08:42 07/12/20 08:42 07/12/20 08:42 Oxygen Delivery Method Room Air Weight: 70.8 kg Body Mass Index (BMI) 33.5 Intake and Output for Last 24 Hours 07/10/20 07/11/20 07/12/20 23:59 23:59 23:59 Intake Total 3673.33 / 3673.33 2430.00 / 2430.00 2635.00 / 2635.00 Output Total 625 / 625 350 / 350 1200 / 1200 Balance 3048.33 / 3048.33 2080.00 / 2080.00 1435.00 / 1435.00 Microbiology Past 72 Hours 07/10/20 08:14 Blood Culture (Wb) - Left Hand Blood Culture - Preliminary No growth in 48 hours. 07/10/20 08:07 Blood Culture (Wb) - Anticubital Right Blood Culture - Preliminary No growth in 48 hours. 07/09/20 18:30 Urine, Clean Catch Urine Culture - Preliminary Presumptive E. coli 07/11/20 07:52 Mucosa - Nose SARS-CoV-2 Antigen (Rapid) - Final Laboratory Results 07/12/20 05:48: WBC 4.1 L, RBC 3.57 L, Hgb 10.7 L, Hct 35.0 L, MCV 98.0, MCH 30.0, MCHC 30.6 L, RDW Std Deviation 46.5 H, RDW Coeff of Ramesh 13.0, Plt Count 172, MPV 10.5, Immature Gran % (Auto) 0.200, Neut % (Auto) 49.3, Lymph % (Auto) 37.7, [place] % (Auto) 9.1, Eos % (Auto) 3.2, Baso % (Auto) 0.5, Absolute Neuts (auto) 2.0, Absolute Lymphs (auto) 1.54, Nucleated RBC % 0 07/12/20 05:48: Sodium 141, Potassium 4.1, Chloride 113 H, Carbon Dioxide 25.0, Anion Gap 3 L, BUN 12, Creatinine 0.98, Estim Creat Clear Calc 57.14, Est GFR (MDRD) Af Amer 71, Est GFR (MDRD) Non-Af 59 L, BUN/Creatinine Ratio 12.2, Glucose 85, Calcium 8.0 L, Total Bilirubin 0.50, AST 10 L, ALT 13, Alkaline Phosphatase 58, Total Protein 5.4 L, Albumin 2.5 L, Globulin 2.9, Albumin/Globulin Ratio 0.9 Current Medications Acetaminophen (Acetaminophen 325 Mg Tablet) 650 mg PO Q6H PRN PRN PRN Reason: Pain Score 1-10/Temp > 100.7 F Last Admin: 07/12/20 08:55 Dose: 650 mg Documented by: Al Hydroxide/Mg Hydroxide (Mag Hydrox/Al Hydrox/Simeth 30 Ml Udc) 30 ml PO Q6H PRN PRN PRN Reason: Gastric Burning Albuterol Sulfate (Albuterol 2.5 Mg/3 Ml Vial.Neb.) 2.5 mg INHALATION Q2H PRN PRN PRN Reason: Dyspnea, wheezing Diphenhydramine HCl (Diphenhydramine 25 Mg Capsule) 25 mg PO Q6H PRN PRN PRN Reason: ITCHING Famotidine (Famotidine 20 Mg Tablet) 20 mg PO BID [facility] Last Admin: 07/12/20 08:55 Dose: 20 mg Documented by: Guaifenesin (Guaifenesin 10 Ml Udc (200mg/10ml)) 20 ml PO Q4H PRN PRN PRN Reason: COUGH Hydralazine HCl (Hydralazine 20 Mg/Ml Vial) 10 mg IV Q4H PRN PRN PRN Reason: SBP > 160 Sodium Chloride () 1,000 mls @ 100 mls/hr IV .Q10H [facility] Last Admin: 07/12/20 12:00 Dose: 100 mls/hr Documented by: Ceftriaxone Sodium (Rocephin) 1 gm in 50 mls @ 100 mls/hr IV Q24 [facility] Last Infusion: 07/12/20 10:54 Dose: Infused Documented by: Sodium Chloride () 250 mls @ 15 mls/hr IV .[id number] PRN PRN Reason: Saline Flush Sodium Chloride () 250 mls @ 15 mls/hr IV .[id number] PRN PRN Reason: Additional IVPB Infusion Pantoprazole Sodium 40 mg/ (Sodium Chloride) 110 mls @ 330 mls/hr IV Q24 [facility] Last Infusion: 07/12/20 09:15 Dose: Infused Documented by: Magnesium Hydroxide (Magnesium Hydroxide 30 Ml Udc) 30 ml PO DAILY PRN PRN PRN Reason: Constipation Melatonin (Melatonin 3 Mg Tablet) 3 mg PO QHS PRN PRN PRN Reason: INSOMNIA Nitroglycerin (Nitroglycerin (Inpatient Use) 0.4 Mg Tab.Subl) 0.4 mg SL Q5M PRN PRN Reason: CARDIAC/CHEST PAIN Ondansetron HCl (Ondansetron 4 Mg/2 Ml Vial) 4 mg IV Q8H PRN PRN PRN Reason: NAUSEA/VOMITING Prochlorperazine Edisylate (Prochlorperazine 10 Mg/2 Ml Vial) 5 mg IV Q4H PRN PRN PRN Reason: Breakthrough nausea/vomiting Psyllium Hydrophilic Mucilloid (Psyllium 1 Packet) 1 packet PO DAILY PRN PRN PRN Reason: Constipation Senna/Docusate Sodium (Senna/Docusate Sodium 1 Tablet) 2 tablet PO BID PRN PRN PRN Reason: Constipation Sodium Chloride (0.9% Saline Lock 10 Ml Syringe) 10 - 40 ml IV UD PRN PRN Reason: SALINE FLUSH Last Admin: 07/11/20 16:03 Dose: 10 ml Documented by: Throat Lozenges (Benzocaine/Menthol 1 Lozenge) 1 lozenge MUCOUS MEM Q2H PRN PRN PRN Reason: SORE THROAT Medical Necessity - Tobacco Use Smoking Status: Never smoker Tobacco Use: Secondhand - Patient never an active smoker herself but heavy secondhand exposure since childhood including her father and 2 's. Assessment/Plan All Active Problems Pressure sore (Acute) Unable to ambulate (Acute) UTI (urinary tract infection) (Acute) Elevated BP without diagnosis of hypertension (Acute) Wound of right buttock (Acute) Adult failure to thrive (Acute) 1. Acute lower GI bleed, appears resolved, status post colonoscopy on 07/11/20 which showed diverticulosis with no evidence of active bleeding Hb is 10.7, dropped from 12.4. Continue on famotidine 2. Acute E. coli UTI, continue on IV ceftriaxone, await sensitivities 3. Stage III sacral decubitus ulcers, wound RN following, continue on Mepilex 4. DVT prophylaxis with SCDs Inpatient E&M: 64560 Subs Hosp L2
--- NOTE | 2020-07-12 14:31 | CASEMGMT ---
Social Work Consult to complete advanced directives. Met with patient and patient [id number], Fabi in room. Patient alert and oriented x3. This long term care social worker facilitated advanced care planning conversation. HCPOA/LW documents completed with patient. Copy placed on patient chart and originals given to patient. Patient nominating [id number] Fabi and sonDavie as HCPOA's. Rizwana ADLER, SANDRA-Maxi
[2020-07-12] MEDS: hydrALAZINE 20 MG/ML Vial 10 MG IV (15:16)
[2020-07-13] VITALS (7 sets, daily range): BP systolic 151–172; BP diastolic 54–77; PULSE 58–100; RESP 17–18; TEMP 36.3–36.7; O2SAT 97–100
[2020-07-13] MEDS: 0.9% Normal Saline 1,000 ML 100 ML IV (06:00)
[2020-07-13 06:44] LABS: Absolute Lymphocyte Count 1.55 X10^3/uL (0.83-4.51); Absolute Neutrophil Count 2.5 X10^3/uL (2.0-7.7); Basophil# 0.01 X10^3/uL; Basophil% 0.2 % (0-1); Eosinophil# 0.12 X10^3/uL; Eosinophils% 2.7 % (0-5); Hematocrit 35.6 % (37-47); Hemoglobin 10.7 g/dL (12.0-15.0); Lymphocyte # 1.55 X10^3/ul (4.0); Lymphocyte % 34.4 % (19-41); Mean Corp Hgb Conc 30.1 g/dL (32-36); Mean Corpuscular Hgb 29.2 pg (27.0-32.0); Mean Corpuscular Volume 97.3 fL (81-99); Mean Platelet Vol. 10.1 fl (6.2-12.0); Monocyte# 0.31 X10^3/uL; Monocyte% 6.9 % (0-10); NRBC Flagged by Analyzer 0 % (0-5); Neutrophil # 2.51 X10^3/uL (2.7-7.7); Neutrophil % 55.6 % (47-70); Platelet Count 184 K/mm3 (150-450); RBC Distribution Width CV 13.2 % (11.6-14.6); RBC Distribution Width SD 47.6 fl (35.1-43.9); Red Blood Count 3.66 M/mm3 (4.2-5.4); White Blood Count 4.5 K/mm3 (4.4-11.0)
[2020-07-13] MEDS: 0.9% Saline Lock 10 ML Syringe IV (08:09)
[2020-07-13] MEDS: hydrALAZINE 20 MG/ML Vial 10 MG IV (08:09)
[2020-07-13] MEDS: Famotidine 20 MG Tablet PO (09:08)
[2020-07-13] MEDS: Ceftriaxone 1 GM/50 ML BAG IV (09:43)
--- NOTE | 2020-07-13 11:42 | CASEMGMT ---
Addendum entered by Fidelina Shirley 07/13/20 12:49: VERA received call from Dione with TCU stating pre-cert has been obtained, pt is able to discharge to TCU today. VERA updated physician. SW in to speak with pt and pt's KAYLA Dunlap. SW updated pt and Fabi that pre-cert has been obtained for TCU and pt is able to discharge to TCU. Pt and Fabi state understanding. Plan: TCU today Original Note: Social Work Note Pt is medically ready for discharge once pre-cert is obtained. VERA placed a call to Dione with TCU, pre-cert is still pending. Dione to let this worker know once pre-cert is obtained. Plan: TCU pending pre-cert Fidelina Shirley STEEL FINISHER, ELECTRIC TOOL REPAIRER
--- NOTE | 2020-07-13 12:41 | PCM.TXEXTCAR ---
- Diet 07/11/20 15:07 Diet: Regular - General Type of Dietary Supplement:: Ensure Clear Is pt able to select menu?: No Diet Comments: except for meds with sips of water - Routine Orders/Code Status Routine Lab Work: CBC - within 3 days, BMP - within 3 days - Wound(s) rt buttocks Wound Type: Stasis Ulcer right buttock Wound Type: Pressure Injury Dressing Change: Mepilex cleft Wound Type: moisture related vs. pressure Dressing Change: Mepilex - Therapies Weight Bearing: Weight bearing as tolerated Physical Therapy: Eval and Treat Occupational Therapy: Eval and Treat - Allergies/Procedures Done in Hospital Allergies/Adverse Reactions: Allergies Iodinated Contrast Media [CONTRASTS] Allergy (Verified 07/09/20 16:53) PT UNSURE OF REACTION simvastatin Allergy (Verified 07/09/20 16:53) PT UNSURE OF REACTION valdecoxib Allergy (Verified 07/09/20 16:53) PT UNSURE OF REACTION DIDOFENAC Allergy (Uncoded 07/09/20 16:53) PT UNSURE OF REACTION Procedures: Colonoscopy - Type of Care/Length of Stay Estimated LOS: Convalescent Care Less Than 30 days Type of Care Needed: Skilled Rehab Potential: Good Prognosis: Good - Additional Orders/Day of Discharge Day of Discharge: 07/13/20 - Dietary and Speech Recommendations Dietitian Recommendations/Changes: advance diet as tolerated to regular; ensure w/ meals as indicated; [place] BID for wound healing once diet advanced. - Follow Up Care Primary Care Physician: Umberto Aquino MD [Primary Care Provider] - Please follow up with your Primary Care Physician in: within 2 weeks of discharge
--- NOTE | 2020-07-13 12:43 | DS.PCM_ITS ---
Discharge Date and Diagnosis - Problem List Patient Problems: Active and Suspected Problems Pressure sore (Acute) Unable to ambulate (Acute) UTI (urinary tract infection) (Acute) Elevated BP without diagnosis of hypertension (Acute) Wound of right buttock (Acute) Adult failure to thrive (Acute) Date of Admission: 07/09/20 Date of Discharge: 07/13/20 - Primary Discharge Diagnosis Acute Problems: Active Problems Debility Acute lower GI bleed secondary to diverticulosis Acute E. coli UTI Stage III sacral decubitus ulcers - Secondary Discharge Diagnosis Chronic Problems: Chronic Problems PVD (peripheral vascular disease) (Chronic) Obesity (BMI 30.0-34.9) (Chronic) Osteoarthritis (Chronic) Hospital Course and Treatment Consultations 07/09/20 20:19 Consult: Onc/Wound/supervisor hospitality house Routine Comment: General surgery Operations: None Procedures: None Summary of Care Provided: The patient is a 74 year old F with past medical history of obesity, PAD, immobile from severe osteoarthritis, who recently moved from [place] where she was living with family. Patient moved to [place] to be closer to her son and [id number] because of poor care she was getting in [place], when she was staying with her sister. She had developed sacral ulcers. She presented to the [facility] emergency room because she was noted to have blood in her depends. Her hemoglobin was stable. She was admitted to the [facility] floor and managed as adult failure to thrive. She was also found to have acute UTI. Blood pressure was elevated. She was managed on as needed hydralazine. She was noted during the hospital stay to have bloody stools. General surgery were consulted. Patient underwent colonoscopy on 05/13/20. Findings show multiple small and large mouth diverticula in the entire colon. She was also seen by the wound RN. She was evaluated by PT and OT and scheduled for discharge to [facility]dc facility Patient Problems: Active and Suspected Problems Pressure sore (Acute) Unable to ambulate (Acute) UTI (urinary tract infection) (Acute) Elevated BP without diagnosis of hypertension (Acute) Wound of right buttock (Acute) Adult failure to thrive (Acute) Subjective: On the day of discharge, patient was seen and examined. Denied any new complaints. Objective: Physical exam: General: Alert, Oriented x3, Cooperative, No apparent distress, obese HEENT: Atraumatic, PERRLA, EOMI, Normocephalic Oral: Moist Mucosa Neck: Supple Lungs: Normal air movement, Diminished Cardiovascular: Regular rate, Regular Rhythm, Normal S1, Normal S2, No murmurs Abdomen: Bowel Sounds Present, Soft, Non Tender, Non-Distended, No Hepato- splenomegaly Extremities: Bilateral pedal edema +1, Skin: No rashes - Physical Exam Vitals/I&O's: Vital Signs Temp Pulse Resp BP Pulse Ox 98.0 F 100 18 172/55 H 98 07/13/20 08:03 07/13/20 09:45 07/13/20 08:03 07/13/20 08:09 07/13/20 08:03 Oxygen Delivery Method Room Air Weight: 70.6 kg Body Mass Index (BMI) 33.5 Intake and Output for Last 24 Hours 07/11/20 07/12/20 07/13/20 23:59 23:59 23:59 Intake Total 2430.00 / 2430.00 3830.00 / 4030.00 1775.00 / 1775.00 Output Total 350 / 350 1200 / 1800 700 / 700 Balance 2080.00 / 2080.00 2630.00 / 2230.00 1075.00 / 1075.00 Microbiology Past 72 Hours 07/09/20 18:30 Urine, Clean Catch Urine Culture - Final Presumptive E. coli 07/10/20 08:14 Blood Culture (Wb) - Left Hand Blood Culture - Preliminary No growth in 48 hours. 07/10/20 08:07 Blood Culture (Wb) - Anticubital Right Blood Culture - Preliminary No growth in 48 hours. 07/11/20 07:52 Mucosa - Nose SARS-CoV-2 Antigen (Rapid) - Final Laboratory Results 07/13/20 06:20: WBC 4.5, RBC 3.66 L, Hgb 10.7 L, Hct 35.6 L, MCV 97.3, MCH 29.2, MCHC 30.1 L, RDW Std Deviation 47.6 H, RDW Coeff of Ramesh 13.2, Plt Count 184, MPV 10.1, Immature Gran % (Auto) 0.200, Neut % (Auto) 55.6, Lymph % (Auto) 34.4, Traill % (Auto) 6.9, Eos % (Auto) 2.7, Baso % (Auto) 0.2, Absolute Neuts (auto) 2.5, Absolute Lymphs (auto) 1.55, Nucleated RBC % 0 Current Medications Acetaminophen (Acetaminophen 325 Mg Tablet) 650 mg PO Q6H PRN PRN PRN Reason: Pain Score 1-10/Temp > 100.7 F Last Admin: 07/12/20 08:55 Dose: 650 mg Documented by: Al Hydroxide/Mg Hydroxide (Mag Hydrox/Al Hydrox/Simeth 30 Ml Udc) 30 ml PO Q6H PRN PRN PRN Reason: Gastric Burning Albuterol Sulfate (Albuterol 2.5 Mg/3 Ml Vial.Neb.) 2.5 mg INHALATION Q2H PRN PRN PRN Reason: Dyspnea, wheezing Diphenhydramine HCl (Diphenhydramine 25 Mg Capsule) 25 mg PO Q6H PRN PRN PRN Reason: ITCHING Famotidine (Famotidine 20 Mg Tablet) 20 mg PO BID [facility] Last Admin: 07/13/20 09:08 Dose: 20 mg Documented by: Guaifenesin (Guaifenesin 10 Ml Udc (200mg/10ml)) 20 ml PO Q4H PRN PRN PRN Reason: COUGH Hydralazine HCl (Hydralazine 20 Mg/Ml Vial) 10 mg IV Q4H PRN PRN PRN Reason: SBP > 160 Last Admin: 07/13/20 08:09 Dose: 10 mg Documented by: Sodium Chloride () 1,000 mls @ 100 mls/hr IV .Q10H [facility] Last Infusion: 07/13/20 10:13 Dose: 100 mls/hr Documented by: Ceftriaxone Sodium (Rocephin) 1 gm in 50 mls @ 100 mls/hr IV Q24 [facility] Last Infusion: 07/13/20 10:13 Dose: Infused Documented by: Sodium Chloride () 250 mls @ 15 mls/hr IV .[id number] PRN PRN Reason: Saline Flush Sodium Chloride () 250 mls @ 15 mls/hr IV .[id number] PRN PRN Reason: Additional IVPB Infusion Pantoprazole Sodium 40 mg/ (Sodium Chloride) 110 mls @ 330 mls/hr IV Q24 [facility] Last Infusion: 07/13/20 09:27 Dose: Infused Documented by: Magnesium Hydroxide (Magnesium Hydroxide 30 Ml Udc) 30 ml PO DAILY PRN PRN PRN Reason: Constipation Melatonin (Melatonin 3 Mg Tablet) 3 mg PO QHS PRN PRN PRN Reason: INSOMNIA Nitroglycerin (Nitroglycerin (Inpatient Use) 0.4 Mg Tab.Subl) 0.4 mg SL Q5M PRN PRN Reason: CARDIAC/CHEST PAIN Ondansetron HCl (Ondansetron 4 Mg/2 Ml Vial) 4 mg IV Q8H PRN PRN PRN Reason: NAUSEA/VOMITING Prochlorperazine Edisylate (Prochlorperazine 10 Mg/2 Ml Vial) 5 mg IV Q4H PRN PRN PRN Reason: Breakthrough nausea/vomiting Psyllium Hydrophilic Mucilloid (Psyllium 1 Packet) 1 packet PO DAILY PRN PRN PRN Reason: Constipation Senna/Docusate Sodium (Senna/Docusate Sodium 1 Tablet) 2 tablet PO BID PRN PRN PRN Reason: Constipation Sodium Chloride (0.9% Saline Lock 10 Ml Syringe) 10 - 40 ml IV UD PRN PRN Reason: SALINE FLUSH Last Admin: 07/13/20 08:09 Dose: 10 ml Documented by: Throat Lozenges (Benzocaine/Menthol 1 Lozenge) 1 lozenge MUCOUS MEM Q2H PRN PRN PRN Reason: SORE THROAT Discharge Diet: Low fat/ Low Cholesterol, 2000 mg Sodium Diet Discharge Activity: Return to Normal Activity Home Medications: Medications to take at Discharge Acetaminophen [Tylenol Tablet] 650 mg PO Q6H PRN PRN tablet 07/13/20 Cephalexin [Keflex] 500 mg PO Q8 07/13/20 Famotidine [Pepcid] 20 mg PO BID 07/13/20 Lisinopril [Zestril] 20 mg PO DAILY 07/13/20 Primary Care Physician: Umberto Aquino MD [Primary Care Provider] - Please follow up with your Primary Care Physician in: within 2 weeks of discharge Disposition: Long Term facility Minutes spent on discharge:: 40 Patient Condition:: Stable Medical Necessity - Tobacco Use Smoking Status: Never smoker Tobacco Use: Secondhand - Patient never an active smoker herself but heavy secondhand exposure since childhood including her father and 2 's. Meaningful Use Info Meaningful Use Diagnoses (Choose all that apply): None applicable Inpatient E&M: 10827 [facility]
[2020-07-13] MEDS: Lisinopril 20 MG Tablet PO (12:56)
== END 2020-07-13 18:08 | disposition skilled nursing facility (03) ==
LOC: ED 18:39 → MS3 18:50
PROVIDERS: Student in an Organized Health Care Education/Training Program; Surgery; Admitting Provider Family Medicine; Emergency Provider Emergency Medicine; PCP Family Medicine; Visit Provider Internal Medicine
PROC: 0DJD8ZZ Inspection of Lower Intestinal Tract, Via Natural or Artificial Opening Endoscopic (ICD-10-PCS; CPT 45378; principal; 2020-07-11 14:25)
DX: K57.31 Diverticulosis of large intestine without perforation or abscess with bleeding (principal); B96.20 Unspecified Escherichia coli [E. coli] as the cause of diseases classified elsewhere; N39.0 Urinary tract infection, site not specified; L89.153 Pressure ulcer of sacral region, stage 3; M19.90 Unspecified osteoarthritis, unspecified site; I73.9 Peripheral vascular disease, unspecified; E66.01 Morbid (severe) obesity due to excess calories; R03.0 Elevated blood-pressure reading, without diagnosis of hypertension; R62.7 Adult failure to thrive; Z68.33 Body mass index [BMI] 33.0-33.9, adult; K64.4 Residual hemorrhoidal skin tags; K64.8 Other hemorrhoids
CPT/HCPCS: 45378; 80048; 80053; 81001; 83735; 85025; 87040; 87086; 87088; 87186; 87426; 96361; 96365; 96366; 96367; 96375; 96376; 97110; 97162; 97165; 97530; 97535; 97802; 99218; 99251; 99285; J7030; A4216; G0378; G0463

== ENCOUNTER 2020-07-13 18:24 | Inpatient (IN) | payer MEDICARE, SELFPAY ==
[2020-07-13 18:36] VITALS: BP 155/71; PULSE 91; RESP 18; TEMP 36.6; O2SAT 97
[2020-07-13 21:16] VITALS: BMI 37.4
[2020-07-13 21:37] VITALS: BMI 37.5
[2020-07-13] MEDS: Cephalexin 500 MG Capsule PO (22:01)
[2020-07-14 05:41] LABS: Absolute Lymphocyte Count 1.96 X10^3/uL (0.83-4.51); Absolute Neutrophil Count 2.5 X10^3/uL (2.0-7.7); Basophil# 0.02 X10^3/uL; Basophil% 0.4 % (0-1); Eosinophil# 0.15 X10^3/uL; Hematocrit 36.8 % (37-47); Hemoglobin 11.2 g/dL (12.0-15.0); Lymphocyte # 1.96 X10^3/ul (0.83-4.51); Lymphocyte % 38.8 % (19-41); Mean Corp Hgb Conc 30.4 g/dL (32-36); Mean Corpuscular Hgb 29.8 pg (27.0-32.0); Mean Corpuscular Volume 97.9 fL (81-99); Mean Platelet Vol. 9.8 fl (6.2-12.0); Monocyte# 0.39 X10^3/uL; Monocyte% 7.7 % (0-10); NRBC Flagged by Analyzer 0 % (0-5); Neutrophil # 2.52 X10^3/uL (2.7-7.7); Neutrophil % 49.9 % (47-70); Platelet Count 207 K/mm3 (150-450); RBC Distribution Width CV 13.5 % (11.6-14.6); RBC Distribution Width SD 49.1 fl (35.1-43.9); Red Blood Count 3.76 M/mm3 (4.2-5.4); White Blood Count 5.1 K/mm3 (4.4-11.0)
[2020-07-14 05:47] VITALS: BP 133/69; PULSE 58; RESP 16; TEMP 36.2; O2SAT 97
[2020-07-14] MEDS: Famotidine 20 MG Tablet PO ×2 (05:49→17:43)
[2020-07-14] MEDS: Cephalexin 500 MG Capsule PO ×3 (05:49→22:23)
[2020-07-14] MEDS: Lisinopril 20 MG Tablet PO (05:49)
[2020-07-14 05:55] LABS: Anion Gap 4 (5-15); BUN 25 mg/dL (7-18); BUN/Creat Ratio 27.9 RATIO (10-20); Calcium,Total 8.1 mg/dL (8.5-10.1); Chloride 113 mmol/L (98-107); EST Glomerular Filtration Rate 66 mL/min (>60); Est Glom Filt Rate - Afr Amer 79 mL/min (>60); Estimated Creatinine Clearance 66.62 ml/min; Glucose 91 mg/dL (74-106); Potassium 4.3 mmol/L (3.5-5.1); Sodium Level 142 mmol/L (136-145)
[2020-07-14] MEDS: Tuberculin,Purif.prot.deriv. 50 TU/ML Vial 5 ML ID (11:19)
[2020-07-14 11:23] VITALS: PULSE 83; RESP 18; O2SAT 98
[2020-07-14 16:00] VITALS: BP 130/67; PULSE 83; RESP 18; TEMP 36.8; O2SAT 98
--- NOTE | 2020-07-14 16:00 | CASEMGMT ---
Social Work Met with patient for initial assessment. Discussed code status. Pt confirmed full code. NEHEMIAH reviewed, communication to , placed in chart. Explained [employer] insurance with [employer] 07/15 and continued is not guaranteed with each review. The goal is for pt to return home alone but with DIL and son support. DIL checks in and assists pt daily with IADLs and ADLs. The goal is for wounds to heal prior to DC. SW to continue to follow. Jacy Butler, [employer] SERVICER AUTO TECHNICIAN
--- NOTE | 2020-07-14 17:05 | CHAPLAIN ---
Type of Pastoral Visit _x__ Initial Visit ___ Follow-up Visit ___ On-call Visit ___ General Patient Visit ___ Spiritual Assessment ___ Family Conference ___ Bereavement ___ Rapid Response ___ Code Blue ___ Other (describe below) Pastoral Care Referral From _x__ Patient ___ Family ___ Nurse ___ Physician ___ Infectious Disease Physician ___ Group Fitness Instructor ___ Other (describe below) Sacrament/Intervention _x__ Active listening ___ Anointing ___ Hoahaoism ___ Bereavement ___ Communion ___ Fartun exploration ___ _x__ Life review _x__ Prayer ___ Reconciliation ___ Sacrament of Sick ___ Supportive presence ___ Wedding ___ Other (describe below) Pastoral Comments patient is very talkative and gives long life review and description of some family relationships; pt has past connection to churches but does not currently have such for support; prayer and future visits welcomed
[2020-07-14] MEDS: Menthol/Lanolin/Calamine/Znox 113 GM Tube 1 APPLIC TOPICAL (17:44)
[2020-07-14] MEDS: Nystatin Powder 15gm Bottle 1 APPLIC TOPICAL (17:46)
[2020-07-15 05:00] VITALS: BP 137/73; PULSE 63; RESP 16; TEMP 36.6; O2SAT 98
[2020-07-15] MEDS: Lisinopril 20 MG Tablet PO (05:54)
[2020-07-15] MEDS: Famotidine 20 MG Tablet PO ×2 (05:54→16:37)
[2020-07-15] MEDS: Nystatin Powder 15gm Bottle 1 APPLIC TOPICAL ×2 (05:54→16:38)
[2020-07-15] MEDS: Menthol/Lanolin/Calamine/Znox 113 GM Tube 1 APPLIC TOPICAL ×2 (05:54→16:38)
[2020-07-15] MEDS: Cephalexin 500 MG Capsule PO ×3 (05:54→20:25)
[2020-07-15 14:30] VITALS: BP 123/59; PULSE 79; RESP 18; TEMP 36.9; O2SAT 96
[2020-07-15] MEDS: Acetaminophen 325 MG Tablet 650 MG PO (20:23)
[2020-07-16 05:00] VITALS: BP 135/69; PULSE 51; RESP 16; TEMP 36.6; O2SAT 100
[2020-07-16] MEDS: Famotidine 20 MG Tablet PO ×2 (07:00→17:00)
[2020-07-16] MEDS: Menthol/Lanolin/Calamine/Znox 113 GM Tube 1 APPLIC TOPICAL ×2 (07:00→17:01)
[2020-07-16] MEDS: Nystatin Powder 15gm Bottle 1 APPLIC TOPICAL ×2 (07:00→17:03)
[2020-07-16] MEDS: Cephalexin 500 MG Capsule PO ×3 (07:00→20:20)
[2020-07-16] MEDS: Lisinopril 20 MG Tablet PO (07:00)
--- NOTE | 2020-07-16 08:28 | PCM.HP.STD ---
Problem List (1) Debility Status: Acute (2) Lower gastrointestinal bleed Status: Acute (3) Failure to thrive Status: Chronic (4) Sacral pressure ulcer Status: Chronic (5) Body mass index 37.0-37.9, adult Status: Chronic (6) UTI (urinary tract infection) Status: Acute (7) Elevated BP without diagnosis of hypertension Status: Acute (8) PVD (peripheral vascular disease) Status: Chronic (9) Osteoarthritis Status: Chronic Qualifiers: History of Present Illness Date of Admission: 07/13/20 Chief Complaint: Here for rehabilitation, strengthening, prior to discharge home with family. 07/09/2020 The patient is a 74 year old Female with below past medical history presented to [facility] Emergency Department with buttock wounds, bleeding from bottom. Buttock wounds, recently moved from [place] to [place]. Usually ambulates with walker, recently unable to walk due to weakness. No family doctor for 2 years. UA consistent with urinary tract infection. Sacral pressure ulcers present, do not appear infected. 07/09/2020 Admit to Hospital. Wound nurse for sacral pressure ulcer. PT/OT for debility. Hydralazine IV as needed for elevated blood pressure. Ceftriaxone IV for urinary tract infection. 07/10/2020 General Surgery offered colonoscopy for rectal bleeding, patient declined due to history of perforated colon from previous colonoscopy. 07/11/2020 General Surgery performed colonoscopy showing diverticulosis, internal/external hemorrhoids. 07/12/2020 Famotidine for acute lower gastrointestinal bleeding. E. Coli urinary tract infection treated with IV Ceftriaxone. Mepileconor, Wound nurse for stage 3 sacral pressure ulcer. PT/OT recommended [facility] facility. 07/13/2020 Admit to TCU with debility, here for rehabilitation, strengthening, prior to discharge home with family. Past Medical History Past Medical History (Chronic Problems): Chronic Problems PVD (peripheral vascular disease) (Chronic) Obesity (BMI 30.0-34.9) (Chronic) Osteoarthritis (Chronic) Failure to thrive (Chronic) Sacral pressure ulcer (Chronic) Body mass index 37.0-37.9, adult (Chronic) Allergies Iodinated Contrast Media [CONTRASTS] Allergy (Verified 07/09/20 16:53) PT UNSURE OF REACTION simvastatin Allergy (Verified 07/09/20 16:53) PT UNSURE OF REACTION valdecoxib Allergy (Verified 07/09/20 16:53) PT UNSURE OF REACTION DIDOFENAC Allergy (Uncoded 07/09/20 16:53) PT UNSURE OF REACTION Home Medications: Ambulatory Orders Medication Instructions Recorded Acetaminophen [Tylenol Tablet] 650 mg PO Q6H PRN PRN tablet 07/13/20 Cephalexin [Keflex] 500 mg PO Q8 07/13/20 Famotidine [Pepcid] 20 mg PO BID 07/13/20 Lisinopril [Zestril] 20 mg PO DAILY 07/13/20 Surgical History: appendectomy, colectomy - Partial., hysterectomy, tonsillectomy, - - Prior colostomy with reversal secondary 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 Psychiatric History: No pertinent psych hx TITLE I PARAPROFESSIONAL History: No pertinent TITLE I PARAPROFESSIONAL history Lives: With Family Smoking Status: Never smoker - Heavy second hand smoke exposure. Tobacco Use: Non-smoker Alcohol: None Drugs: None - *Family History Maternal History Items: Cancer Paternal History Items: - - Patient does not know any of her paternal family history. Review of Systems Constitutional: Denies: Chills, Fever, Weight Change HEENT: Denies: Head Aches, Sinus Congestion, Sinus Drainage Cardiovascular: Denies: Chest Pain, Palpitations Respiratory: Denies: Cough, Shortness of breath at rest, Sputum production Gastrointestinal: Denies: Abdominal Pain, Nausea, Vomiting Genitourinary: Denies: Dysuria Musculoskeletal: Denies: Joint Pain, Joint Tenderness Skin: Denies: Rash, Wounds Neurological: Reports: - - burning pain left side.. Denies: Focal weakness, Numbness, Tingling Psychiatric: Denies: Anxiety, Depression, Homicidal Ideations, Suicidal Ideations Hematologic/ Lymphatic: Denies: Easy Bruising, Easy Bleeding VTE Information - Inpt Only VTE Present on Admission: No VTE Mechan Device Prophylaxis: Knee High MINA Hose VTE Pharm Prophylaxis ordered?: No Reason prophylaxis not ordered:: Medical Contraindication Patient Problems: Active and Suspected Problems UTI (urinary tract infection) (Acute) Elevated BP without diagnosis of hypertension (Acute) Debility (Acute) Lower gastrointestinal bleed (Acute) - Physical Exam Vitals/I&O's: Vital Signs Temp Pulse Resp BP Pulse Ox 97.8 F 51 L 16 135/69 H 100 07/16/20 05:00 07/16/20 05:00 07/16/20 05:00 07/16/20 05:00 07/16/20 05:00 Oxygen Delivery Method Room Air Weight: 75.8 kg Body Mass Index (BMI) 37.4 Intake and Output for Last 24 Hours 07/14/20 07/15/20 07/16/20 23:59 23:59 23:59 Intake Total 720 / 720 480 / 480 Balance 720 / 720 480 / 480 General: Alert, Oriented x3, Cooperative HEENT: Atraumatic, PERRLA, EOMI, Normocephalic Neck: Supple, No JVD, Negative Carotid Bruits Lungs: Clear to auscultation, Normal air movement Cardiovascular: Regular rate, No murmurs Abdomen: Bowel Sounds Present, Soft, Non Tender Extremities: No edema, Capillary Refill Less than 3 Seconds Skin: No rashes, Ulcer/ Wound - Sacral pressure ulcer per wound nurse. Musculoskeletal: No Tenderness to Palpation of Joints or Extremities Neurological: Cranial nerves II-XII grossly intact Psych/Mental Status: Normal Affect, Appropriate Current Medications Acetaminophen (Acetaminophen 325 Mg Tablet) 650 mg PO Q6H PRN PRN PRN Reason: Pain Score 1-10/Temp > 100.7 F Last Admin: 07/15/20 20:23 Dose: 650 mg Documented by: Calamine/Phenol (Menthol/Lanolin/Calamine/Znox 113 Gm Tube) 1 applic TOPICAL BID [facility]; Protocol Last Admin: 07/16/20 07:00 Dose: 1 applic Documented by: Cephalexin (Cephalexin 500 Mg Capsule) 500 mg PO Q8 [facility] Stop: 07/16/20 22:01 Last Admin: 07/16/20 07:00 Dose: 500 mg Documented by: Famotidine (Famotidine 20 Mg Tablet) 20 mg PO BID [facility] Last Admin: 07/16/20 07:00 Dose: 20 mg Documented by: Lisinopril (Lisinopril 20 Mg Tablet) 20 mg PO DAILY [facility] Last Admin: 07/16/20 07:00 Dose: 20 mg Documented by: Nystatin (Nystatin Powder 15gm Bottle) 1 applic TOPICAL BID [facility]; Protocol Last Admin: 07/16/20 07:00 Dose: 1 applic Documented by: Tuberculin PPD (Tuberculin,Purif.Prot.Deriv. 50 Tu/Ml Vial) 5 tu ID [id number] Stop: 07/21/20 10:01 Assessment/Plan All Active Problems Pressure sore (Acute) Unable to ambulate (Acute) UTI (urinary tract infection) (Acute) Elevated BP without diagnosis of hypertension (Acute) Wound of right buttock (Acute) Adult failure to thrive (Acute) Debility (Acute) Lower gastrointestinal bleed (Acute) 74 year old female with below past medical history hospitalized for E. Coli urinary tract infection, complicated by stage 3 sacral pressure ulcer, admitted to TCU with debility, here for rehabilitation, strengthening, prior to discharge home with family. Debility - PT/OT. Pain - Tylenol 650MG Q6H PRN pain (1-10). Bowel - Miralax 17GM daily, Senna/colace 1 tablet BID, MOM 30ML daily PRN, Dulcolax 10MG MS daily PRN. Adult immunization - Administer Prevnar 13, Pneumovax 23, Fluzone, COVID19 vaccine as appropriate. DVT prophylaxis - Hold, lower GI bleeding. E. Coli - Keflex 500MG Q8 thru 07/16/2020. GERD - Famotidine 20MG BID. Hypertension - Lisinopril 20MG daily. Stage 3 sacral pressure ulcer - Consult wound nurse. Lower gastrointestinal bleeding - Monitor H&H. Skin irritation - Calmoseptine topical BID. Tinea Corporis - Nystatin topical BID. Left thoracic radiculopathy - X-ray left shoulder, Gabapentin 300MG QHS.
[2020-07-16 14:13] VITALS: BP 124/53; PULSE 73; RESP 16; TEMP 36.7; O2SAT 99
[2020-07-16 15:17] VITALS: PULSE 73; RESP 16; O2SAT 99
[2020-07-16] MEDS: Senna/Docusate Sodium 1 Tablet PO (17:00)
[2020-07-17 04:34] VITALS: BP 140/58; PULSE 58; RESP 18; TEMP 36.7; O2SAT 95
[2020-07-17] MEDS: Lisinopril 20 MG Tablet PO (04:36)
[2020-07-17] MEDS: Famotidine 20 MG Tablet PO ×2 (04:36→17:01)
[2020-07-17] MEDS: Menthol/Lanolin/Calamine/Znox 113 GM Tube 1 APPLIC TOPICAL ×2 (04:38→17:05)
[2020-07-17] MEDS: Nystatin Powder 15gm Bottle 1 APPLIC TOPICAL ×2 (04:41→17:05)
[2020-07-17] MEDS: Acetaminophen 325 MG Tablet 650 MG PO ×3 (07:06→22:06)
--- NOTE | 2020-07-17 07:08 | NURSING ---
Pt c/o this morning of new pain in left posterior shoulder, rates 10/10, burning and itching down her back. Tylenol given, note left for Dr. Stewart to address.
--- NOTE | 2020-07-17 08:39 | RAD_ITS ---
STUDY: X-RAY - LEFT SHOULDER REASON FOR EXAM: Female, 74 years old. Pain, no trauma TECHNIQUE: 2 view(s) of the shoulder. COMPARISON: None. FINDINGS: There is cephalad migration of the humeral head consistent with rotator cuff pathology. Normal acromioclavicular joint. Normal acromion. Normal humeral head and visualized proximal humerus. The soft tissue structures are unremarkable. Normal visualized pulmonary apex. RAD/Shoulder min 2 Views IMPRESSION: Superior displacement humeral head with erosion of the acromion suggestive of chronic rotator cuff tear. MRI may be useful. Electronically Signed: Ezra Manning MD at 10:45 EDT Tel , Service support ,
[2020-07-17 09:45] VITALS: BP 127/42; PULSE 62; RESP 14; TEMP 36.8
[2020-07-17 16:01] VITALS: BP 122/44; PULSE 67; RESP 18; TEMP 36.7; O2SAT 96
--- NOTE | 2020-07-17 16:35 | NURSING ---
Patient complained of sharp, left calf pain. This nurse examined and charge nurse made aware. Left note for Dr. Stewart.
[2020-07-17] MEDS: Senna/Docusate Sodium 1 Tablet PO (17:02)
[2020-07-17] MEDS: Gabapentin 300 MG Capsule PO (22:06)
--- NOTE | 2020-07-17 23:00 | NURSING ---
notified of pt c/o lt calf pain, redness and edema noted, no warmth to touch, new order for dopplers in am.
[2020-07-18 04:17] VITALS: BP 126/57; PULSE 55; RESP 16; TEMP 36.6; O2SAT 96
[2020-07-18] MEDS: Senna/Docusate Sodium 1 Tablet PO ×2 (04:19→16:44)
[2020-07-18] MEDS: Famotidine 20 MG Tablet PO ×2 (04:19→16:43)
[2020-07-18] MEDS: Lisinopril 20 MG Tablet PO (04:19)
[2020-07-18] MEDS: Nystatin Powder 15gm Bottle 1 APPLIC TOPICAL ×2 (04:20→16:44)
[2020-07-18] MEDS: Menthol/Lanolin/Calamine/Znox 113 GM Tube 1 APPLIC TOPICAL ×2 (04:20→16:43)
[2020-07-18] MEDS: Acetaminophen 325 MG Tablet 650 MG PO (09:45)
--- NOTE | 2020-07-18 11:21 | PHA.CONS_ITS ---
<Alie Sotomayor - Last Filed: 07/18/20 11:21> Progress Note - Pharmacy Subjective: TCU Admission Objective: Allergies Iodinated Contrast Media [CONTRASTS] Allergy (Verified 07/09/20 16:53) PT UNSURE OF REACTION simvastatin Allergy (Verified 07/09/20 16:53) PT UNSURE OF REACTION valdecoxib Allergy (Verified 07/09/20 16:53) PT UNSURE OF REACTION DIDOFENAC Allergy (Uncoded 07/09/20 16:53) PT UNSURE OF REACTION Current Medications Generic Name Dose Route Start Last Admin Trade Name Freq PRN Reason Stop Dose Admin Acetaminophen 650 mg 07/13/20 18:37 07/18/20 09:45 Acetaminophen 325 Mg Tablet PO 650 mg Q6H PRN PRN Administration Pain Score 1-10/Temp > 100.7 F Bisacodyl 10 mg 07/16/20 08:42 Bisacodyl 10 Mg Suppository RC DAILY PRN Constipation Calamine/Phenol 1 applic 07/14/20 18:00 07/18/20 04:20 Menthol/Lanolin/Calamine/Znox 113 Gm Tube TOPICAL 1 applic BID JESSI Administration Protocol Famotidine 20 mg 07/14/20 06:00 07/18/20 04:19 Famotidine 20 Mg Tablet PO 20 mg BID JESSI Administration Gabapentin 300 mg 07/17/20 22:00 07/17/20 22:06 Gabapentin 300 Mg Capsule PO 300 mg QHS JESSI Administration Lisinopril 20 mg 07/14/20 06:00 07/18/20 04:19 Lisinopril 20 Mg Tablet PO 20 mg DAILY JESSI Administration Magnesium Hydroxide 30 ml 07/16/20 08:42 Magnesium Hydroxide 30 Ml Udc PO DAILY PRN Constipation Nystatin 1 applic 07/14/20 18:00 07/18/20 04:20 Nystatin Powder 15gm Bottle TOPICAL 1 applic BID JESSI Administration Protocol Polyethylene Glycol 17 gm 07/17/20 06:00 07/18/20 04:21 Polyethylene Glycol 3350 17 Gm Packet PO Not Given DAILY JESSI Senna/Docusate Sodium 1 tablet 07/16/20 18:00 07/18/20 04:19 Senna/Docusate Sodium 1 Tablet PO 1 tablet BID JESSI Administration Tuberculin PPD 5 tu 07/21/20 10:00 Tuberculin,Purif.Prot.Deriv. 50 Tu/Ml Vial ID 07/21/20 10:01 X1 ONE Problem List UTI (urinary tract infection) (Acute) Elevated BP without diagnosis of hypertension (Acute) PVD (peripheral vascular disease) (Chronic) Osteoarthritis (Chronic) Debility (Acute) Lower gastrointestinal bleed (Acute) Failure to thrive (Chronic) Sacral pressure ulcer (Chronic) Body mass index 37.0-37.9, adult (Chronic) Vital Signs Temp Pulse Resp BP Pulse Ox 97.8 F 55 L 16 126/57 H 96 07/18/20 04:17 07/18/20 04:17 07/18/20 04:17 07/18/20 04:17 07/18/20 04:17 Oxygen Delivery Method Room Air Weight: 75.8 kg Body Mass Index (BMI) 37.4 Sodium 142 mmol/L (136-145) 07/14/20 05:32 Potassium 4.3 mmol/L (3.5-5.1) 07/14/20 05:32 Chloride 113 mmol/L (98-107) H 07/14/20 05:32 Carbon Dioxide 25.0 mmol/L (21.0-32.0) 07/14/20 05:32 Anion Gap 4 (5-15) L 07/14/20 05:32 BUN 25 mg/dL (7-18) H 07/14/20 05:32 Creatinine 0.90 mg/dL (0.55-1.02) 07/14/20 05:32 Est GFR (MDRD) Af Amer 79 mL/min (>60) 07/14/20 05:32 Est GFR (MDRD) Non-Af 66 mL/min (>60) 07/14/20 05:32 BUN/Creatinine Ratio 27.9 RATIO (10-20) H 07/14/20 05:32 Glucose 91 mg/dL (74-106) 07/14/20 05:32 Assessment/Plan: 1. Pain: acetaminophen 650mg PO Q6H PRN pain 1-01/08. Please continue to monitor for increased pain and PRN usage. 2. GERD: famotidine 20mg PO BID. Please continue to monitor for S/S of GERD. 3. Hypertension: lisinopril 20mg PO daily. Please continue to monitor BP (126/57), potassium (last 4.3mmol/L), cough and renal function. 4. Left thoracic radiculopathy: gabapentin 300mg PO QHS. Please continue to mo nitor renal function and for confusion. Psychotropic Medications: None Unnecessary Medications: None *Bowel Regimen: Miralax 17gm PO daily, senna/docusate 1T PO BID, MOM 30mL PO daily PRN constipation and bisacodyl 10mg RC daily PRN constipation. Patient has refused 2/2 doses of Miralax. Please consider changing to PRN constipation if clinically appropriate. Thanks. Please continue to monitor for constipation and PRN usage. Date of Note:: 07/18/20 - Provider Comments Provider responsibility: Provider responsible to enter orders to implement recommendations <Hernán Stewart Chi - Last Filed: 07/18/20 17:10> Progress Note - Pharmacy Subjective: [] Objective: Allergies Iodinated Contrast Media [CONTRASTS] Allergy (Verified 07/09/20 16:53) PT UNSURE OF REACTION simvastatin Allergy (Verified 07/09/20 16:53) PT UNSURE OF REACTION valdecoxib Allergy (Verified 07/09/20 16:53) PT UNSURE OF REACTION DIDOFENAC Allergy (Uncoded 07/09/20 16:53) PT UNSURE OF REACTION Current Medications Generic Name Dose Route Start Last Admin Trade Name Freq PRN Reason Stop Dose Admin Acetaminophen 650 mg 07/13/20 18:37 07/18/20 09:45 Acetaminophen 325 Mg Tablet PO 650 mg Q6H PRN PRN Administration Pain Score 1-10/Temp > 100.7 F Bisacodyl 10 mg 07/16/20 08:42 Bisacodyl 10 Mg Suppository RC DAILY PRN Constipation Calamine/Phenol 1 applic 07/14/20 18:00 07/18/20 16:43 Menthol/Lanolin/Calamine/Znox 113 Gm Tube TOPICAL 1 applic BID JESSI Administration Protocol Famotidine 20 mg 07/14/20 06:00 07/18/20 16:43 Famotidine 20 Mg Tablet PO 20 mg BID JESSI Administration Gabapentin 300 mg 07/17/20 22:00 07/17/20 22:06 Gabapentin 300 Mg Capsule PO 300 mg QHS JESSI Administration Lisinopril 20 mg 07/14/20 06:00 07/18/20 04:19 Lisinopril 20 Mg Tablet PO 20 mg DAILY JESSI Administration Magnesium Hydroxide 30 ml 07/16/20 08:42 Magnesium Hydroxide 30 Ml Udc PO DAILY PRN Constipation Nystatin 1 applic 07/14/20 18:00 07/18/20 16:44 Nystatin Powder 15gm Bottle TOPICAL 1 applic BID JESSI Administration Protocol Polyethylene Glycol 17 gm 07/17/20 06:00 07/18/20 04:21 Polyethylene Glycol 3350 17 Gm Packet PO Not Given DAILY JESSI Senna/Docusate Sodium 1 tablet 07/16/20 18:00 07/18/20 16:44 Senna/Docusate Sodium 1 Tablet PO 1 tablet BID JESSI Administration Tuberculin PPD 5 tu 07/21/20 10:00 Tuberculin,Purif.Prot.Deriv. 50 Tu/Ml Vial ID 07/21/20 10:01 X1 ONE Problem List UTI (urinary tract infection) (Acute) Elevated BP without diagnosis of hypertension (Acute) PVD (peripheral vascular disease) (Chronic) Osteoarthritis (Chronic) Debility (Acute) Lower gastrointestinal bleed (Acute) Failure to thrive (Chronic) Sacral pressure ulcer (Chronic) Body mass index 37.0-37.9, adult (Chronic) Vital Signs Temp Pulse Resp BP Pulse Ox 98.3 F 73 16 138/58 H 96 07/18/20 14:00 07/18/20 14:00 07/18/20 14:00 07/18/20 14:00 07/18/20 14:00 Oxygen Delivery Method Room Air Weight: 75.8 kg Body Mass Index (BMI) 37.4 Sodium 142 mmol/L (136-145) 07/14/20 05:32 Potassium 4.3 mmol/L (3.5-5.1) 07/14/20 05:32 Chloride 113 mmol/L (98-107) H 07/14/20 05:32 Carbon Dioxide 25.0 mmol/L (21.0-32.0) 07/14/20 05:32 Anion Gap 4 (5-15) L 07/14/20 05:32 BUN 25 mg/dL (7-18) H 07/14/20 05:32 Creatinine 0.90 mg/dL (0.55-1.02) 07/14/20 05:32 Est GFR (MDRD) Af Amer 79 mL/min (>60) 07/14/20 05:32 Est GFR (MDRD) Non-Af 66 mL/min (>60) 07/14/20 05:32 BUN/Creatinine Ratio 27.9 RATIO (10-20) H 07/14/20 05:32 Glucose 91 mg/dL (74-106) 07/14/20 05:32 Assessment/Plan: Psychotropic Medications: Unnecessary Medications: Bowel Regimen: - Provider Comments Provider responsibility: Provider responsible to enter orders to implement recommendations Provider Comments to Recommendations by Pharmacy: Agree
[2020-07-18 14:00] VITALS: BP 138/58; PULSE 73; RESP 16; TEMP 36.8; O2SAT 96
--- NOTE | 2020-07-18 14:41 | NURSING ---
wound photo: right buttock
[2020-07-18 22:10] VITALS: PULSE 79; RESP 16; O2SAT 97
[2020-07-18] MEDS: Gabapentin 300 MG Capsule PO (22:24)
[2020-07-19 05:00] VITALS: BP 109/56; PULSE 57; RESP 16; TEMP 36.6; O2SAT 97
[2020-07-19] MEDS: Nystatin Powder 15gm Bottle 1 APPLIC TOPICAL ×2 (05:26→17:22)
[2020-07-19] MEDS: Menthol/Lanolin/Calamine/Znox 113 GM Tube 1 APPLIC TOPICAL ×2 (05:26→17:22)
[2020-07-19] MEDS: Senna/Docusate Sodium 1 Tablet PO ×2 (05:26→17:21)
[2020-07-19] MEDS: Famotidine 20 MG Tablet PO ×2 (05:27→17:21)
[2020-07-19] MEDS: Lisinopril 20 MG Tablet PO (07:16)
[2020-07-19] MEDS: Polyethylene Glycol 3350 17 GM PACKET PO (07:16)
[2020-07-19 07:19] VITALS: BP 121/59
[2020-07-19] MEDS: Acetaminophen 325 MG Tablet 650 MG PO ×2 (08:41→22:42)
[2020-07-19 14:40] VITALS: BP 123/53; PULSE 57; RESP 16; TEMP 36.8; O2SAT 97
[2020-07-19 20:35] VITALS: PULSE 69; RESP 16; O2SAT 97
[2020-07-19] MEDS: Gabapentin 300 MG Capsule PO (22:40)
[2020-07-20 04:25] VITALS: BP 101/47; PULSE 52; RESP 16; TEMP 36.6; O2SAT 96
[2020-07-20] MEDS: Nystatin Powder 15gm Bottle 1 APPLIC TOPICAL ×2 (04:29→16:49)
[2020-07-20] MEDS: Famotidine 20 MG Tablet PO ×2 (04:29→16:48)
[2020-07-20] MEDS: Menthol/Lanolin/Calamine/Znox 113 GM Tube 1 APPLIC TOPICAL ×2 (04:29→16:49)
[2020-07-20] MEDS: Lisinopril 20 MG Tablet PO (07:12)
--- NOTE | 2020-07-20 12:19 | CASEMGMT ---
Addendum entered by Jacy Butler 07/22/20 11:45: Followed up with dtr on DC plans. Awaiting on outcome. Original Note: Social Work IDT met with patient and DIL via conference call for care plan meeting. Discussed patient's progress in therapy and nursing. Discussed patient's fear of falling and anxiety. Pt is totalA and krissy lift. Pt receiving wound care. Pt is out of isolation 07/28. Explained visitation. Explained [employer] NRD 07/21 and continued stay is not guaranteed. Inquired about alternative DC plan as home alone currently is not safe nor recommended. Pt would be agreeable to transfer to SNF for further care. Discussed private pay and Medicaid. DIL to complete JA[employer] application, provide SW with financial information, and choose SNFs. Emailed list of SNFs that provides include quality and resource data that is consistent with the pt's preferred geographic region, medical needs and insurance networks. SW to continue to follow to assist with DC plans. NAYELY LopezW
[2020-07-20 14:52] VITALS: BP 101/40; PULSE 69; RESP 16; TEMP 36.8; O2SAT 97
--- NOTE | 2020-07-20 18:15 | NURSING ---
DR WELSH AWARE OF SHOULDER XRAY FROM 07/17. NO NEW ORDERS.
[2020-07-20 21:30] VITALS: PULSE 56; RESP 16; O2SAT 96
[2020-07-20] MEDS: Acetaminophen 325 MG Tablet 650 MG PO (21:30)
[2020-07-20] MEDS: Gabapentin 300 MG Capsule PO (21:30)
[2020-07-21 05:00] VITALS: BP 113/57; PULSE 51; RESP 14; TEMP 36.2; O2SAT 98
[2020-07-21] MEDS: Menthol/Lanolin/Calamine/Znox 113 GM Tube 1 APPLIC TOPICAL ×2 (05:57→18:19)
[2020-07-21] MEDS: Nystatin Powder 15gm Bottle 1 APPLIC TOPICAL ×2 (05:57→18:20)
[2020-07-21] MEDS: Famotidine 20 MG Tablet PO ×2 (05:58→18:18)
[2020-07-21] MEDS: Lisinopril 20 MG Tablet PO (05:58)
[2020-07-21 06:04] LABS: Absolute Lymphocyte Count 2.05 X10^3/uL (0.83-4.51); Absolute Neutrophil Count 1.8 X10^3/uL (2.0-7.7); Basophil# 0.02 X10^3/uL; Basophil% 0.5 % (0-1); Eosinophil# 0.16 X10^3/uL; Eosinophils% 3.7 % (0-5); Hematocrit 34.8 % (37-47); Hemoglobin 10.4 g/dL (12.0-15.0); Lymphocyte # 2.05 X10^3/ul (0.83-4.51); Lymphocyte % 47.6 % (19-41); Mean Corp Hgb Conc 29.9 g/dL (32-36); Mean Corpuscular Volume 100.3 fL (81-99); Mean Platelet Vol. 10.2 fl (6.2-12.0); Monocyte# 0.32 X10^3/uL; Monocyte% 7.4 % (0-10); NRBC Flagged by Analyzer 0 % (0-5); Neutrophil # 1.76 X10^3/uL (2.7-7.7); Neutrophil % 40.8 % (47-70); Platelet Count 194 K/mm3 (150-450); RBC Distribution Width CV 13.6 % (11.6-14.6); RBC Distribution Width SD 50.4 fl (35.1-43.9); Red Blood Count 3.47 M/mm3 (4.2-5.4); White Blood Count 4.3 K/mm3 (4.4-11.0)
[2020-07-21 06:27] LABS: Anion Gap 3 (5-15); BUN 66 mg/dL (7-18); BUN/Creat Ratio 48.2 RATIO (10-20); Calcium,Total 7.9 mg/dL (8.5-10.1); Chloride 113 mmol/L (98-107); Creatinine, Serum 1.37 mg/dL (0.55-1.02); EST Glomerular Filtration Rate 40 mL/min (>60); Est Glom Filt Rate - Afr Amer 49 mL/min (>60); Estimated Creatinine Clearance 43.77 ml/min; Glucose 77 mg/dL (74-106); Sodium Level 142 mmol/L (136-145)
[2020-07-21] MEDS: Acetaminophen 325 MG Tablet 650 MG PO (09:42)
[2020-07-21 11:56] VITALS: PULSE 53; RESP 18; O2SAT 97
[2020-07-21] MEDS: Tuberculin,Purif.prot.deriv. 50 TU/ML Vial 5 ML ID (12:10)
[2020-07-21 16:48] VITALS: BP 132/57; PULSE 53; RESP 18; TEMP 36.4; O2SAT 97
[2020-07-21] MEDS: Senna/Docusate Sodium 1 Tablet PO (18:18)
[2020-07-21] MEDS: Gabapentin 300 MG Capsule PO (22:04)
[2020-07-22 06:13] VITALS: BP 112/52; PULSE 50; RESP 16; TEMP 36.4; O2SAT 96
[2020-07-22] MEDS: Menthol/Lanolin/Calamine/Znox 113 GM Tube 1 APPLIC TOPICAL ×2 (06:15→14:03)
[2020-07-22] MEDS: Nystatin Powder 15gm Bottle 1 APPLIC TOPICAL ×2 (06:16→14:03)
[2020-07-22] MEDS: Famotidine 20 MG Tablet PO ×2 (06:16→16:38)
[2020-07-22] MEDS: Lisinopril 20 MG Tablet PO (06:16)
[2020-07-22 14:16] VITALS: BP 147/54; PULSE 67; RESP 18; TEMP 36.8; O2SAT 97
[2020-07-22] MEDS: Gabapentin 300 MG Capsule PO (22:59)
[2020-07-23 05:36] VITALS: BP 115/65; PULSE 51; RESP 16; TEMP 36.7; O2SAT 99
[2020-07-23] MEDS: Nystatin Powder 15gm Bottle 1 APPLIC TOPICAL ×2 (05:37→16:47)
[2020-07-23] MEDS: Menthol/Lanolin/Calamine/Znox 113 GM Tube 1 APPLIC TOPICAL ×2 (05:37→16:47)
[2020-07-23] MEDS: Famotidine 20 MG Tablet PO ×2 (05:38→16:47)
[2020-07-23] MEDS: Lisinopril 20 MG Tablet PO (05:38)
[2020-07-23 08:20] LABS: Hematocrit 37.1 % (37-47); Hemoglobin 11.1 g/dL (12.0-15.0)
[2020-07-23 13:31] VITALS: BP 105/57; PULSE 60; RESP 18; TEMP 36.6; O2SAT 96
[2020-07-23] MEDS: Gabapentin 300 MG Capsule PO (21:01)
[2020-07-24 05:00] VITALS: BP 107/67; PULSE 53; RESP 16; TEMP 36.4; O2SAT 98
[2020-07-24] MEDS: Lisinopril 20 MG Tablet PO (06:19)
[2020-07-24] MEDS: Famotidine 20 MG Tablet PO ×2 (06:19→16:48)
[2020-07-24] MEDS: Menthol/Lanolin/Calamine/Znox 113 GM Tube 1 APPLIC TOPICAL ×2 (06:19→16:46)
[2020-07-24] MEDS: Nystatin Powder 15gm Bottle 1 APPLIC TOPICAL ×2 (06:20→16:46)
[2020-07-24 13:08] VITALS: BP 108/57; PULSE 60; RESP 16; TEMP 36.8; O2SAT 97
[2020-07-24] MEDS: Senna/Docusate Sodium 1 Tablet PO (16:47)
[2020-07-24 22:15] VITALS: PULSE 86; RESP 18; O2SAT 94
[2020-07-24] MEDS: Gabapentin 300 MG Capsule PO (22:20)
[2020-07-25 05:00] VITALS: BP 116/56; PULSE 50; RESP 16; TEMP 36.4; O2SAT 98
[2020-07-25] MEDS: Nystatin Powder 15gm Bottle 1 APPLIC TOPICAL ×2 (05:22→12:38)
[2020-07-25] MEDS: Menthol/Lanolin/Calamine/Znox 113 GM Tube 1 APPLIC TOPICAL ×2 (05:22→12:38)
[2020-07-25] MEDS: Famotidine 20 MG Tablet PO ×2 (05:23→16:43)
[2020-07-25] MEDS: Lisinopril 20 MG Tablet PO (05:23)
--- NOTE | 2020-07-25 14:15 | MDS.RN ---
Information for the mds was obtained from review of the clinical record, interview of resident, staff, and direct observation of resident's care.
[2020-07-25 14:45] VITALS: BP 117/43; PULSE 61; RESP 16; TEMP 36.9; O2SAT 98
--- NOTE | 2020-07-25 15:20 | CASEMGMT ---
Social Work Followed up with KAYLA. Inquired about DC plans and Medicaid application and email with all information and resources. KAYLA stated she hadn't viewed the email yet and didn't know she needed to do anything with it. KAYLA stated she spoke with Dr. Stewart and he recommended SNF for continued therapy or LTP. DIL touring [facility] 07/26 and meeting with BOM/JAZZ specialist. Explained there is an issue with pt's information still be connected with [place] not [place] and needing Financial POA for access [employer] security information and bank statements. KAYLA stated pt would not be able to pay privately and needs [employer]. Explained the importance of accessing [employer] application from this worker's email to complete and return to submit to J[employer]. Explained insurance update 07/26 and may issue DC date requires pending number to admit, if [facility] will accept. Referred to [facility] and will await outcome. KAYLA expressed understanding. Will continue to follow. Jacy Butler, NAYELY SURGICAL ASSIST
[2020-07-25] MEDS: Gabapentin 300 MG Capsule PO (20:42)
[2020-07-26 05:00] VITALS: BP 115/64; PULSE 70; RESP 18; TEMP 36.6; O2SAT 95
[2020-07-26] MEDS: Lisinopril 20 MG Tablet PO (05:10)
[2020-07-26] MEDS: Famotidine 20 MG Tablet PO ×2 (05:15→16:53)
[2020-07-26] MEDS: Menthol/Lanolin/Calamine/Znox 113 GM Tube 1 APPLIC TOPICAL ×2 (06:00→16:54)
[2020-07-26] MEDS: Nystatin Powder 15gm Bottle 1 APPLIC TOPICAL ×2 (06:00→16:54)
[2020-07-26 15:16] VITALS: BP 115/54; PULSE 60; RESP 16; TEMP 36.8; O2SAT 96
--- NOTE | 2020-07-26 16:24 | CASEMGMT ---
Social Work [facility] can accept pt and will admit her Medicaid pending, per [facility]. Awaiting outcome from insurance. Will continue to follow. Jacy Butler, OXYGEN PLANT OPERATOR MANGA ARTIST
[2020-07-26] MEDS: Gabapentin 300 MG Capsule PO (21:04)
[2020-07-27 05:00] VITALS: BP 121/39; PULSE 45; RESP 14; TEMP 36.3
[2020-07-27] MEDS: Famotidine 20 MG Tablet PO ×2 (05:39→17:11)
[2020-07-27] MEDS: Nystatin Powder 15gm Bottle 1 APPLIC TOPICAL ×2 (05:40→17:12)
[2020-07-27] MEDS: Lisinopril 20 MG Tablet PO (05:40)
[2020-07-27] MEDS: Menthol/Lanolin/Calamine/Znox 113 GM Tube 1 APPLIC TOPICAL ×2 (07:03→17:12)
[2020-07-27 11:43] VITALS: PULSE 55; RESP 16; O2SAT 97
--- NOTE | 2020-07-27 14:43 | CASEMGMT ---
Social Work Insurance issued LCD 07/29, DC 07/30. Confirmed with [facility] pt can admit 07/30 and they are working with pt and DIL with Medicaid. No LOC needed, per [facility]. PASRR completed. Spoke with pt and DIL - both agreeable to DC to [facility]. Scheduled cot transport through [facility]. Plan: DC to [facility] 07/30 NAYELY LopezW
[2020-07-27 15:52] VITALS: BP 103/59; PULSE 55; RESP 16; TEMP 36.6; O2SAT 97
[2020-07-27] MEDS: Gabapentin 300 MG Capsule PO (20:48)
[2020-07-28 05:00] VITALS: BP 113/55; PULSE 49; RESP 14; TEMP 36.3; O2SAT 99
[2020-07-28 05:33] LABS: Absolute Lymphocyte Count 2.04 X10^3/uL (0.83-4.51); Absolute Neutrophil Count 2.1 X10^3/uL (2.0-7.7); Basophil# 0.03 X10^3/uL; Basophil% 0.6 % (0-1); Eosinophil# 0.25 X10^3/uL; Eosinophils% 5.2 % (0-5); Hematocrit 36.3 % (37-47); Hemoglobin 10.8 g/dL (12.0-15.0); Lymphocyte # 2.04 X10^3/ul (0.83-4.51); Lymphocyte % 42.7 % (19-41); Mean Corp Hgb Conc 29.8 g/dL (32-36); Mean Corpuscular Hgb 29.5 pg (27.0-32.0); Mean Corpuscular Volume 99.2 fL (81-99); Mean Platelet Vol. 10.5 fl (6.2-12.0); Monocyte# 0.36 X10^3/uL; Monocyte% 7.5 % (0-10); NRBC Flagged by Analyzer 0 % (0-5); Neutrophil # 2.09 X10^3/uL (2.7-7.7); Neutrophil % 43.8 % (47-70); Platelet Count 186 K/mm3 (150-450); RBC Distribution Width CV 13.6 % (11.6-14.6); RBC Distribution Width SD 50.5 fl (35.1-43.9); Red Blood Count 3.66 M/mm3 (4.2-5.4); White Blood Count 4.8 K/mm3 (4.4-11.0)
[2020-07-28 05:48] LABS: Anion Gap 2 (5-15); BUN 68 mg/dL (7-18); BUN/Creat Ratio 53.5 RATIO (10-20); Calcium,Total 8.4 mg/dL (8.5-10.1); Chloride 114 mmol/L (98-107); Creatinine, Serum 1.27 mg/dL (0.55-1.02); EST Glomerular Filtration Rate 44 mL/min (>60); Est Glom Filt Rate - Afr Amer 53 mL/min (>60); Estimated Creatinine Clearance 46.05 ml/min; Glucose 83 mg/dL (74-106); Potassium 5.3 mmol/L (3.5-5.1); Sodium Level 142 mmol/L (136-145)
[2020-07-28] MEDS: Menthol/Lanolin/Calamine/Znox 113 GM Tube 1 APPLIC TOPICAL ×2 (06:00→16:51)
[2020-07-28] MEDS: Famotidine 20 MG Tablet PO ×2 (06:00→16:50)
[2020-07-28] MEDS: Nystatin Powder 15gm Bottle 1 APPLIC TOPICAL ×2 (06:01→16:50)
[2020-07-28] MEDS: Lisinopril 20 MG Tablet PO (06:04)
--- NOTE | 2020-07-28 08:05 | PCM.DC.SUM ---
Providers Date of Admission: 07/13/20 Primary Care Physician: Dr. Umberto Aquino MD Consultations 07/13/20 18:43 Consult: Onc/Wound/meat smoker Routine Comment: Reason for Consult:: pressure injury RT buttock/jade cleft Reason For Visit: ADULT FAILURE TO THRIVE, UTI, WOUNDS Diagnosis Discharge Diagnosis (1) Debility: Status: Acute Code(s): R53.81 - Other malaise (2) Lower gastrointestinal bleed: Status: Acute Code(s): K92.2 - Gastrointestinal hemorrhage, unspecified (3) Failure to thrive: Status: Chronic (4) Sacral pressure ulcer: Status: Chronic Code(s): L89.159 - Pressure ulcer of sacral region, unspecified stage (5) Body mass index 37.0-37.9, adult: Status: Chronic Code(s): Z68.37 - Body mass index [BMI] 37.0-37.9, adult (6) UTI (urinary tract infection): Status: Acute Code(s): N39.0 - Urinary tract infection, site not specified (7) Elevated BP without diagnosis of hypertension: Status: Acute Code(s): R03.0 - Elevated blood-pressure reading, without diagnosis of hypertension (8) PVD (peripheral vascular disease): Status: Chronic Code(s): I73.9 - Peripheral vascular disease, unspecified (9) Osteoarthritis: Status: Chronic Code(s): M19.90 - Unspecified osteoarthritis, unspecified site Medications at Discharge Home Medications acetaminophen 650 mg PO Q6H PRN PRN tablet 07/13/20 famotidine 20 mg PO BID 07/13/20 lisinopril 20 mg PO DAILY 07/13/20 gabapentin 300 mg PO QHS 30 Days #30 cap 07/28/20 Hospital Course Operations None Procedures None Summary of Care Provided Minutes Spent on Discharge: 35 Hospital Course: 74 year old female with below past medical history hospitalized for E. Coli urinary tract infection, complicated by stage 3 sacral pressure ulcer, admitted to TCU with debility, here for rehabilitation, strengthening, prior to discharge home with family. Discharge to [facility] Intermediate, Part B Therapies. Physical Exam Const alert and oriented x3 General Appearance: cooperative HEENT normocephalic Eyes PERRL and EOMs intact bilaterally Neck supple, no JVD and no carotid bruits Resp normal respiratory effort, normal air movement and clear to auscultation bilaterally Cardio regular rate and regular rhythm GI normal to inspection, nondistended, normoactive bowel sounds, non-tender and non-distended Extremity normal capillary refill General Extremity: Negative for edema Skin no rashes or lesions noted General Skin Exam: no breakdown Psych affect normal Appearance: appropriate ABG / Lab / Microbiology Data Result Diagrams: 07/28/20 05:25 07/28/20 05:25 Laboratory: Laboratory Results - last 24 hr 07/28/20 07/28/20 05:25 05:25 WBC 4.8 RBC 3.66 L Hgb 10.8 L Hct 36.3 L MCV 99.2 H MCH 29.5 MCHC 29.8 L RDW Std Deviation 50.5 H RDW Coeff of Ramesh 13.6 Plt Count 186 MPV 10.5 Immature Gran % (Auto) 0.200 Neut % (Auto) 43.8 L Lymph % (Auto) 42.7 H Whiteside % (Auto) 7.5 Eos % (Auto) 5.2 H Baso % (Auto) 0.6 Absolute Neuts (auto) 2.1 Absolute Lymphs (auto) 2.04 Nucleated RBC % 0 Sodium 142 Potassium 5.3 H Chloride 114 H Carbon Dioxide 26.0 Anion Gap 2 L BUN 68 H Creatinine 1.27 H Estim Creat Clear Calc 46.05 Est GFR (MDRD) Af Amer 53 L Est GFR (MDRD) Non-Af 44 L BUN/Creatinine Ratio 53.5 H Glucose 83 Calcium 8.4 L D/C Instructions Discharge Diet: No restrictions Discharge Activity: Return to Normal Activity, May Shower and Use Walker Weight Bearing Status: Weight bearing as tolerated Call your doctor if you observe: Fever of 101 or Higher, Inability to urinate, Shortness of breath, Dizziness, Chest pain and Uncontrolled pain Additional Instructions: Discharge to [facility] Intermediate, Part B Therapies. Please follow up with your Primary Care Physician in: 1 week. Meaningful Use Info Meaningful Use Diagnoses (Choose all that apply): None applicable Discharge Plan Admission Admit Date/Time: 07/13/20 18:24 Primary Reason for Your Visit: Debility Attending Provider: Hernán Stewart Chi Primary Care Provider: Umberto Aquino Discharge Orders/Prescriptions Prescriptions: New gabapentin 300 mg Capsule 300 mg PO QHS 30 Days Qty: 30 RF: 0 Continued acetaminophen 325 MG tablet 650 mg PO Q6H PRN PRN (Reason: Pain Score 1-10/Temp > 100.7 F) RF: 0 lisinopril 20 MG tablet 20 mg PO DAILY RF: 0 famotidine 20 MG tablet 20 mg PO BID RF: 0 Discontinued cephalexin 500 MG capsule 500 mg PO Q8 RF: 0 Referrals: Umberto Aquino MD [Primary Care Provider] - Disposition Patient Disposition: NonSkilled NH/Intermed Care
--- NOTE | 2020-07-28 08:12 | PCM.TXEXTCAR ---
Diet 07/13/20 18:39 Diet: Regular - General Food consistency:: Regular Liquid Consistency:: Regular/Thin Type of Dietary Supplement:: Milton Is pt able to select menu?: Yes Diet Comments: Milton 1 pkt BID w/ L&D; Please send up Build up Utensils Routine Orders/Code Status Suppository Type: Dulcolax 10mg Suppository Frequency: Daily PRN Wound(s) rt buttock: Wound Type: Pressure Injury Dressing Change: calmoseptine Therapies Weight Bearing: Weight bearing as tolerated Extremity Affected:: Bilateral Lower Physical Therapy: Eval and Treat Occupational Therapy: Eval and Treat Problem/Diagnosis (1) Debility: Status: Acute (2) Lower gastrointestinal bleed: Status: Acute (3) Failure to thrive: Status: Chronic (4) Sacral pressure ulcer: Status: Chronic (5) Body mass index 37.0-37.9, adult: Status: Chronic (6) UTI (urinary tract infection): Status: Acute (7) Elevated BP without diagnosis of hypertension: Status: Acute (8) PVD (peripheral vascular disease): Status: Chronic (9) Osteoarthritis: Status: Chronic Allergies/Procedures Done in Hospital Allergies Iodinated Contrast Media [CONTRASTS] Allergy (Verified 07/09/20 16:53) PT UNSURE OF REACTION simvastatin Allergy (Verified 07/09/20 16:53) PT UNSURE OF REACTION valdecoxib Allergy (Verified 07/09/20 16:53) PT UNSURE OF REACTION DIDOFENAC Allergy (Uncoded 07/09/20 16:53) PT UNSURE OF REACTION Type of Care/Length of Stay Estimated LOS: More Than 30 Days Type of Care Needed: Intermediate Rehab Potential: Fair Prognosis: Fair Additional Orders/Day of Discharge Additional Orders: Part B Therapies Day of Discharge: 07/30/20 Dietary and Speech Recommendations Dietitian Recommendations/Changes: Continue Regular diet. Continue to provide Milton 1 pkt BID for wound healing. Follow Up Care Please follow up with your Primary Care Physician in: 1 week. Discharge Plan Admission Admit Date/Time: 07/13/20 18:24 Primary Reason for Your Visit: Debility Attending Provider: Hernán Stewart Chi Primary Care Provider: Umberto Aquino Discharge Orders/Prescriptions Prescriptions: New gabapentin 300 mg Capsule 300 mg PO QHS 30 Days Qty: 30 RF: 0 Continued acetaminophen 325 MG tablet 650 mg PO Q6H PRN PRN (Reason: Pain Score 1-10/Temp > 100.7 F) RF: 0 lisinopril 20 MG tablet 20 mg PO DAILY RF: 0 famotidine 20 MG tablet 20 mg PO BID RF: 0 Discontinued cephalexin 500 MG capsule 500 mg PO Q8 RF: 0 Referrals: Umberto Aquino MD [Primary Care Provider] - Disposition Patient Disposition: NonSkilled NH/Intermed Care
[2020-07-28] MEDS: Sodium Polystyrene Sulfonate 15 GM/60 ML UDC 30 GM PO (10:41)
--- NOTE | 2020-07-28 13:07 | MDS.RN ---
Completed pain interview for DAISY 07/30/20.
[2020-07-28 15:28] VITALS: BP 126/44; PULSE 62; RESP 16; TEMP 36.7; O2SAT 95
[2020-07-28 19:42] VITALS: PULSE 69; RESP 16; O2SAT 96
[2020-07-28] MEDS: Gabapentin 300 MG Capsule PO (22:06)
[2020-07-29 05:00] VITALS: BP 102/42; PULSE 46; RESP 18; TEMP 36.3; O2SAT 99
[2020-07-29] MEDS: Famotidine 20 MG Tablet PO ×2 (05:34→17:39)
[2020-07-29] MEDS: Menthol/Lanolin/Calamine/Znox 113 GM Tube 1 APPLIC TOPICAL ×2 (05:36→17:38)
[2020-07-29] MEDS: Nystatin Powder 15gm Bottle 1 APPLIC TOPICAL ×2 (05:36→17:38)
[2020-07-29 06:05] LABS: Anion Gap 4 (5-15); BUN 66 mg/dL (7-18); BUN/Creat Ratio 47.1 RATIO (10-20); Calcium,Total 7.8 mg/dL (8.5-10.1); Chloride 114 mmol/L (98-107); EST Glomerular Filtration Rate 39 mL/min (>60); Est Glom Filt Rate - Afr Amer 47 mL/min (>60); Estimated Creatinine Clearance 41.77 ml/min; Glucose 81 mg/dL (74-106); Potassium 5.1 mmol/L (3.5-5.1); Sodium Level 143 mmol/L (136-145)
--- NOTE | 2020-07-29 09:56 | CASEMGMT ---
Social Work BIMS and PHQ-9 completed for MDS assessment. Jacy Butler, DIRECTOR HOME HEALTH BALL POINT SPLITTER
[2020-07-29 10:41] VITALS: PULSE 52; RESP 18; O2SAT 98
[2020-07-29 15:55] VITALS: BP 104/58; PULSE 51; RESP 18; TEMP 36.6; O2SAT 98
[2020-07-29] MEDS: Acetaminophen 325 MG Tablet 650 MG PO (20:08)
[2020-07-29] MEDS: Gabapentin 300 MG Capsule PO (20:09)
[2020-07-30 05:18] VITALS: BP 123/53; PULSE 50; RESP 18; TEMP 35.9; O2SAT 95
[2020-07-30] MEDS: Menthol/Lanolin/Calamine/Znox 113 GM Tube 1 APPLIC TOPICAL (05:26)
[2020-07-30] MEDS: Famotidine 20 MG Tablet PO (05:26)
[2020-07-30] MEDS: Nystatin Powder 15gm Bottle 1 APPLIC TOPICAL (05:27)
[2020-07-30 09:37] VITALS: PULSE 60; RESP 18; O2SAT 99
[2020-07-30 11:16] VITALS: BP 114/60; PULSE 60; RESP 20; TEMP 36.6; O2SAT 99
== END 2020-07-30 11:15 | disposition intermediate care facility (04) | DRG 689 ==
PROVIDERS: Internal Medicine; Admitting Provider Family Medicine Geriatric Medicine; PCP Family Medicine; Visit Provider Family Medicine Geriatric Medicine
DX: N39.0 Urinary tract infection, site not specified (principal); L89.153 Pressure ulcer of sacral region, stage 3; K92.2 Gastrointestinal hemorrhage, unspecified; B96.20 Unspecified Escherichia coli [E. coli] as the cause of diseases classified elsewhere; M19.90 Unspecified osteoarthritis, unspecified site; I73.9 Peripheral vascular disease, unspecified; E66.9 Obesity, unspecified; K21.9 Gastro-esophageal reflux disease without esophagitis; B35.4 Tinea corporis; M54.14 Radiculopathy, thoracic region; R62.7 Adult failure to thrive; Z68.37 Body mass index [BMI] 37.0-37.9, adult; Z79.899 Other long term (current) drug therapy
CPT/HCPCS: 36415; 73030; 80048; 85014; 85018; 85025; 87635; 97110; 97162; 97166; 97530; 97535; U0002

== ENCOUNTER → 2020-07-18 08:08 | Outpatient (CLI) | payer MEDICARE, SELFPAY ==
[2020-07-13 21:16] VITALS: BMI 37.4
--- NOTE | 2020-07-18 08:23 | VDLE_ITS ---
Reason For Study: Pain, Edema RIGHT LEFT GSV is normal. GSV is normal. CFV is compressible, spontaneous, phasic, CFV is compressible, spontaneous, phasic, competent and demonstrates normal competent, and demonstrates normal augmentation. augmentation. FV is compressible, spontaneous, phasic, FV is compressible, spontaneous, phasic, competent and demonstrates normal competent and demonstrates normal augmentation. augmentation. FV distal visualized with color only, pt FV distal visualized with color only, pt unable to tolerate compression. unable to tolerate compression. POP V is compressible, spontaneous, phasic, POP V is compressible, spontaneous, phasic, competent and demonstrates normal competent and demonstrates normal augmentation. augmentation. T/P Trunk is compressible. T/P Trunk is compressible. PTV is compressible. PTV is compressible. RT PerV is compressible. LT PerV is compressible. Procedure This is a venous duplex using B-mode, color flow and spectral Doppler. Exam performed portable in patient room. A preliminary report was called and/or faxed to TCU. VL/Venous Duplex US - Gerber Extrem Interpretation Summary Deep veins of the lower extremities are bilaterally patent and compressible seg mentally. There is no evidence of deep vein thrombosis on either side. Valvular competence appears in tact within the proximal deep venous systems bilaterally. The great saphenous veins appear bila terally patent and compressible segmentally. Ordering Physician: Hernán Stewart Referring Physician: Umberto Aquino Performed By: Fidelina Beckwith RVT
== END ==
PROVIDERS: PCP Family Medicine; Referring Provider Family Medicine Geriatric Medicine; Visit Provider Family Medicine Geriatric Medicine
DX: R60.0 Localized edema (principal); M79.605 Pain in left leg; M79.604 Pain in right leg
CPT/HCPCS: 93970

== ENCOUNTER 2020-10-15 10:56 | Emergency (ER) | payer MEDICARE, MEDICAID, SELFPAY ==
[2020-10-15 10:58] VITALS: BP 109/46; PULSE 70; RESP 18; TEMP 36.6; O2SAT 100; BMI 44.9
--- NOTE | 2020-10-15 11:11 | EKG12_ITS ---
Test Reason : ABNORMAL LABS Blood Pressure : / mmHG Vent. Rate : 074 BPM Atrial Rate : 074 BPM P-R Int : 166 ms QRS Dur : 080 ms QT Int : 346 ms P-R-T Axes : 026 -08 042 degrees QTc Int : 384 ms Normal sinus rhythm Normal ECG Confirmed by MARIBETH KOHLER, ADEOLA ([id number]), design editor YI LANCE ([id number]) on 10/17/2020 2:21:14 PM Referred By: Confirmed By:ADEOLA STAHL MD
[2020-10-15] MEDS: 0.9% Normal Saline 1,000 ML 1000 ML IV (11:26)
[2020-10-15 11:30] LABS: Absolute Lymphocyte Count 1.73 X10^3/uL (0.83-4.51); Absolute Neutrophil Count 3.9 X10^3/uL (2.0-7.7); Basophil# 0.01 X10^3/uL; Basophil% 0.2 % (0-1); Eosinophils% 1.6 % (0-5); Hematocrit 38.7 % (37-47); Lymphocyte # 1.73 X10^3/ul (0.83-4.51); Lymphocyte % 27.9 % (19-41); Mean Corpuscular Hgb 30.4 pg (27.0-32.0); Mean Platelet Vol. 10.5 fl (6.2-12.0); Monocyte# 0.45 X10^3/uL; Monocyte% 7.3 % (0-10); NRBC Flagged by Analyzer 0 % (0-5); Neutrophil # 3.89 X10^3/uL (2.7-7.7); Neutrophil % 62.8 % (47-70); Platelet Count 190 K/mm3 (150-450); RBC Distribution Width CV 13.7 % (11.6-14.6); RBC Distribution Width SD 49.9 fl (35.1-43.9); Red Blood Count 3.95 M/mm3 (4.2-5.4); White Blood Count 6.2 K/mm3 (4.4-11.0)
--- NOTE | 2020-10-15 11:31 | EDS_ITS ---
HPI History of Present Illness Chief Complaint: Abn Labs Informant: patient and family Narrative Narrative: Patient sent from the [facility] for abnormal labs. Family reported kidney injury, however reviewing paperwork and labs from facility patient had hyperkalemia the last 2 days. Potassium was 6.4 and 6.3 respectively. Creatinine of 1.4-1.3 the past 2 days. From her records she has CKD with creatinine at these levels. Potassium is new. Patient denies any chest pains or palpitations. She reports decreased p.o. intake. Denies any recent vomiting or diarrhea. Denies any urine symptoms or changes in urine output. Denies fevers chest pains or racing heart. Denies any history of heart failure. Patient has been at the [facility] since June post her hospitalization for UTI. She has been unable to walk due to weakness. They have been attempting therapy at the facility. [facility] Medical History Anxiety Diverticulosis GERD (gastroesophageal reflux disease) Hypertension Home Medications acetaminophen 650 mg PO Q6H PRN PRN tablet 07/13/20 [Rx Last Taken Unknown] famotidine 20 mg PO BID 07/13/20 [History Last Taken Unknown] gabapentin 300 mg PO QHS 30 Days #30 cap 07/28/20 [Rx Last Taken Unknown] amlodipine 5 mg PO DAILY #30 tab 10/15/20 [Rx Last Taken Unknown] duloxetine 30 mg PO DAILY 10/15/20 [History Last Taken Unknown] hydrocodone-acetaminophen [[place]] 1 tab PO BID 10/15/20 [History Last Taken Unknown] nystatin [Nyamyc] 1 applic TOPICAL BID 10/15/20 [History Last Taken Unknown] Allergy/AdvReac Type Severity Reaction Status Date / Time Iodinated Contrast Media Allergy PT UNSURE Verified 10/15/20 11:04 [CONTRASTS] OF REACTION simvastatin Allergy PT UNSURE Verified 10/15/20 11:04 OF REACTION valdecoxib Allergy PT UNSURE Verified 10/15/20 11:04 OF REACTION DIDOFENAC Allergy PT UNSURE Uncoded 10/15/20 11:04 OF REACTION Social History Smoking Status: Never smoker ROS ROS ED Constitutional Constitutional ED: Denies chills, fever(s) or sweats Eyes Eyes: Denies change in vision ENT ENT ED: Denies dysphagia or sore throat Cardiovascular Cardiovascular: Denies chest pain, leg edema, palpitations or racing heartbeat Respiratory/Chest Respiratory/Chest: Denies cough, dyspnea or dyspnea on exertion Gastrointestinal Gastrointestinal: Denies abdominal pain, diarrhea, nausea or vomiting Genitourinary Genitourinary ED: Denies dysuria, hematuria or urinary frequency Musculoskeletal Musculoskeletal: Denies back pain, extremity pain or neck pain Integumentary Denies rash or wounds Neurologic Neurologic: Denies headache(s), paresthesias or weakness EXAM Physical Exam Const Vital Signs: 10/15/20 10:58 Temperature 97.9 F Temperature Source Temporal Pulse Rate 70 Respiratory Rate 18 Respiratory Effort Normal Non-Labored Respiratory Pattern Normal Blood Pressure 109/46 L Blood Pressure Mean 67 Pulse Ox 100 Oxygen Delivery Method Room Air Positive well nourished and well developed General Appearance ED: well developed and NAD HEENT HEENT Narrative: Mild dry mucosal membranes. normocephalic and atraumatic Eyes PERRL, EOMs intact bilaterally and conjunctivae normal General Eye ED: Yes normal appearance of both eyes Neck no lymphadenopathy and supple General: Negative for tenderness Chest Wall Chest: Negative for tenderness Resp normal respiratory effort and normal air movement Effort and Inspection: symmetric chest movement; Negative for respiratory distress Cardio regular rate, regular rhythm and no murmurs Peripheral Pulses: pulses 2+ throughout GI normal to inspection, nondistended, normoactive bowel sounds and non-tender Palpation: Negative for guarding or rebound tenderness present Back/Spine no CVA tenderness and no thoracic nor lumbar tenderness Extremity normal to inspection General Extremety ED: Negative for edema or tenderness General Extremity: Negative for edema Neuro oriented x3 and no sensory deficits noted Sensorium / Orientation: awake and alert Skin no rashes or lesions noted and no wounds MDM MDM MDM Narrative Medical decision making narrative: Patient nontoxic vital signs are stable. EKG show no acute hyperkalemia findings. Clinically slight dry mucosal membranes reported decreased p.o. intake. She is given a liter IV fluids. I did recheck labs, creatinine 1.3 which is around her baseline. Potassium at 5.4 slightly elevated however lower than her last 2 days of labs of 6.4 and 6.3. She was covered with aerosol treatments insulin and glucose. With patient's potassium being elevated last 2 days, felt potentially patient can be admitted to observation is to make sure potassium normalizes. I discussed with hospitalist Dr. Baugh who did not feel this was warranted with numbers shifting down. I discussed the elevated levels the last 2 days. He recommended patient being off lisinopril and starting Norvasc 5 mg, with recheck potassium levels the next 2 days. I will discuss with covering physician at the [facility]. 1227: Discussed with Dr. Andrew, plan of care. Will write a prescription for amlodipine 5 mg, will DC lisinopril. He will recheck potassium as an outpatient. Patient will return as needed. Lab Data Attestation: I reviewed the patient's lab results. Labs: Laboratory Results - last 24 hr 10/15/20 10/15/20 11:15 11:15 WBC 6.2 RBC 3.95 L Hgb 12.0 Hct 38.7 MCV 98.0 MCH 30.4 MCHC 31.0 L RDW Std Deviation 49.9 H RDW Coeff of Ramesh 13.7 Plt Count 190 MPV 10.5 Immature Gran % (Auto) 0.200 Neut % (Auto) 62.8 Lymph % (Auto) 27.9 Mills % (Auto) 7.3 Eos % (Auto) 1.6 Baso % (Auto) 0.2 Absolute Neuts (auto) 3.9 Absolute Lymphs (auto) 1.73 Nucleated RBC % 0 Sodium 139 Potassium 5.4 H Chloride 109 H Carbon Dioxide 25.0 Anion Gap 5 BUN 68 H Creatinine 1.31 H Estim Creat Clear Calc 54.95 Est GFR (MDRD) Af Amer 51 L Est GFR (MDRD) Non-Af 42 L BUN/Creatinine Ratio 51.9 H Glucose 80 Calcium 8.2 L EKG Initial EKG: Attestation: I personally reviewed and interpreted this EKG as follows: Comments: Sinus rate of 74, no ST or T wave changes. No peak T waves noted. Discharge Plan Triage Chief Complaint: Abn Labs ED Provider: Alex Castillo Dx/Rx/DC Orders Clinical Impression: Acute hyperkalemia, CKD (chronic kidney disease) Instructions: CKD Dc, ED Hyperkalemia Prescriptions: New amlodipine 5 mg tablet 5 mg PO DAILY Qty: 30 RF: 0 Discontinued lisinopril 20 MG tablet 20 mg PO DAILY RF: 0 No Action acetaminophen 325 MG tablet 650 mg PO Q6H PRN PRN (Reason: Pain Score 1-10/Temp > 100.7 F) RF: 0 famotidine 20 MG tablet 20 mg PO BID RF: 0 gabapentin 300 mg Capsule 300 mg PO QHS 30 Days Qty: 30 RF: 0 hydrocodone-acetaminophen [[place]] 5-325 mg Tablet 1 tab PO BID RF: 0 nystatin [Nyamyc] 100,000 unit/gram powder 1 applic TOPICAL BID RF: 0 duloxetine 30 mg capsule,delayed release(DR/EC) 30 mg PO DAILY RF: 0 Primary Care Provider: Umberto Aquino Referrals: Umberto Aquino MD [Primary Care Provider] - 1 Day Activity Restrictions/Additional Instructions: Potassium 5.4 today. Status post aerosol treatment, insulin and glucose. Stop lisinopril, start amlodipine. Potassium to be rechecked daily for the next 2 days. Disposition Disposition: Retirement Facility Discharge Location: [facility]
[2020-10-15 11:39] LABS: Anion Gap 5 (5-15); BUN 68 mg/dL (7-18); BUN/Creat Ratio 51.9 RATIO (10-20); Calcium,Total 8.2 mg/dL (8.5-10.1); Chloride 109 mmol/L (98-107); Creatinine, Serum 1.31 mg/dL (0.55-1.02); EST Glomerular Filtration Rate 42 mL/min (>60); Est Glom Filt Rate - Afr Amer 51 mL/min (>60); Estimated Creatinine Clearance 54.95 ml/min; Glucose 80 mg/dL (74-106); Potassium 5.4 mmol/L (3.5-5.1); Sodium Level 139 mmol/L (136-145)
--- NOTE | 2020-10-15 12:01 | NURSING ---
DR ROSAS CASTELLANOS
[2020-10-15] MEDS: Dextrose 50%-Water 25 GM/50 ML DISP.SYRIN IV (12:08)
[2020-10-15] MEDS: Insulin Lispro 5 UNIT in Syringe 0 ML 6 UNIT IV (12:08)
--- NOTE | 2020-10-15 12:56 | NURSING ---
CALLED [facility], ETA IS 30 MIN
[2020-10-15 13:21] VITALS: BP 109/49; PULSE 66; RESP 15; O2SAT 100
[2020-10-15 13:24] VITALS: PULSE 68; RESP 16
== END 2020-10-15 13:24 | disposition skilled nursing facility (03) ==
PROVIDERS: Emergency Provider Emergency Medicine; PCP Family Medicine
DX: E87.5 Hyperkalemia (principal); I12.9 Hypertensive chronic kidney disease with stage 1 through stage 4 chronic kidney disease, or unspecified chronic kidney disease; N18.9 Chronic kidney disease, unspecified; K21.9 Gastro-esophageal reflux disease without esophagitis; F41.9 Anxiety disorder, unspecified; Z79.899 Other long term (current) drug therapy; Z87.440 Personal history of urinary (tract) infections
CPT/HCPCS: 80048; 85025; 93005; 94640; 99285; J7030; A4216

== ENCOUNTER 2020-10-16 12:12 | Observation (INO) | payer MEDICARE, MEDICAID, SELFPAY ==
[2020-10-15 10:58] VITALS: BMI 44.9
[2020-10-16] VITALS (8 sets, daily range): BP systolic 114–128; BP diastolic 64–82; PULSE 57–115; RESP 14–18; TEMP 36.4–37.1; O2SAT 96–100; BMI 42.6; BMI 39.7
--- NOTE | 2020-10-16 12:26 | EX.ED.DYSGE1 ---
HPI History of Present Illness Chief Complaint: Abn Labs Informant: patient and family Narrative Narrative: Patient is a 74-year-old female presenting with hyperkalemia. Patient seen in the ER yesterday where her potassium was elevated. She was given cocktail for hyperkalemia and it was felt that it be treated at her nursing facility so she was discharged back. Her repeat potassium today was 6.7. She states she has been urinating normally. She denies any other complaints at this time. She was sent back to the emergency room for her elevated potassium. [facility] Medical History Anxiety Diverticulosis GERD (gastroesophageal reflux disease) Hypertension Murmur Home Medications acetaminophen 650 mg PO Q6H PRN PRN tablet 07/13/20 [Rx Last Taken Unknown] famotidine 20 mg PO BID 07/13/20 [History Last Taken Unknown] gabapentin 300 mg PO QHS 30 Days #30 cap 07/28/20 [Rx Last Taken Unknown] amlodipine 5 mg PO DAILY #30 tab 10/15/20 [Rx Last Taken Unknown] duloxetine 30 mg PO DAILY 10/15/20 [History Last Taken Unknown] hydrocodone-acetaminophen [[place]] 1 tab PO BID 10/15/20 [History Last Taken Unknown] nystatin [Nyamyc] 1 applic TOPICAL BID 10/15/20 [History Last Taken Unknown] bisacodyl 10 mg MD DAILY PRN 10/16/20 [History Last Taken Unknown] magnesium hydroxide [Milk of Magnesia] 5 ml PO DAILY PRN 10/16/20 [History Last Taken Unknown] Allergy/AdvReac Type Severity Reaction Status Date / Time Iodinated Contrast Media Allergy PT UNSURE Verified 10/15/20 11:04 [CONTRASTS] OF REACTION simvastatin Allergy PT UNSURE Verified 10/15/20 11:04 OF REACTION valdecoxib Allergy PT UNSURE Verified 10/15/20 11:04 OF REACTION DIDOFENAC Allergy PT UNSURE Uncoded 10/15/20 11:04 OF REACTION Family History Mother Cancer Surgical History H/O: hysterectomy History of intestinal surgery Hx of appendectomy S/P tonsillectomy Social History housing: [facility] Smoking Status: Never smoker alcohol intake: never substance use type: does not use ROS ROS ED Constitutional Constitutional ED: Denies chills, fever(s) or malaise Eyes Eyes: Denies blurry vision or loss of vision ENT ENT ED: Denies rhinorrhea or sore throat Cardiovascular Cardiovascular: Denies chest pain or dizziness Respiratory/Chest Respiratory/Chest: Denies cough or dyspnea Gastrointestinal Gastrointestinal: Denies nausea or vomiting Genitourinary Genitourinary ED: Denies dysuria or hematuria Musculoskeletal Musculoskeletal: Denies arthralgias or myalgias Integumentary Denies rash or wounds Neurologic Neurologic: Denies focal weakness or headache(s) Psychiatric Psychiatric: Denies anxiety or behavioral changes EXAM Physical Exam Const Vital Signs: 10/16/20 12:13 10/16/20 12:17 10/16/20 15:27 Temperature 98.7 F 98 F Temperature Source Oral Temporal Pulse Rate 68 62 Respiratory Rate 16 15 Respiratory Effort Normal Non-Labored Blood Pressure 128/78 H 118/82 H Blood Pressure Mean 94 94 Pulse Ox 100 96 Oxygen Delivery Method Room Air Room Air Positive well nourished and well developed General Appearance ED: well developed HEENT Reports moist mucous membranes Negative for trauma Eyes PERRL and EOMs intact bilaterally Neck supple and no JVD Chest Wall inspection of chest normal Resp normal respiratory effort and clear to auscultation bilaterally Cardio regular rate, regular rhythm and no murmurs GI normal to inspection, nondistended, normoactive bowel sounds Extremity General Extremety ED: Yes edema; Negative for tenderness General Extremity: edema Neuro oriented x3 and CN's II-XII intact bilaterally Sensorium / Orientation: alert Psych mental status grossly normal Skin no wounds MDM MDM MDM Narrative Medical decision making narrative: Patient evaluated for hyperkalemia and outpatient labs. She was seen in the ER for the same complaint and was thought to be secondary to her lisinopril. Patient does not appear to have any acute EKG changes compared to yesterday however her MD interval is slightly longer however QRS is slightly shorter. Her initial potassium is hemolyzed at 6.5. Whole blood sample is redrawn and with no hemolysis her potassium was 6.3. Patient will be admitted for management of her hyperkalemia. She is given hyper K cocktail as well as Kayexalate. Patient is agreeable to this plan of care. Lab Data Attestation: I reviewed the patient's lab results. Labs: Laboratory Results - last 24 hr 10/16/20 10/16/20 10/16/20 12:23 12:50 14:25 Sodium Cancelled 141 Potassium Cancelled 6.5 H* 6.3 H* Chloride Cancelled 114 H Carbon Dioxide Cancelled 23.0 Anion Gap Cancelled 4 L BUN Cancelled 73 H Creatinine Cancelled 1.14 H Estim Creat Clear Calc Cancelled 59.88 Est GFR (MDRD) Af Amer Cancelled 60 Est GFR (MDRD) Non-Af Cancelled 50 L BUN/Creatinine Ratio Cancelled 64.0 H Glucose Cancelled 84 Calcium Cancelled 8.0 L Rhythm Strip Rhythm Strip: Sinus Rhythm Rate: 57 Ectopy: None EKG Initial EKG: Attestation: I personally reviewed and interpreted this EKG as follows: Interpretation: Sinus Bradycardia Comments: Sinus bradycardia rate [address] segments Questionable peak T waves and MD interval is 180 QRS of 72 QTC is 352 No significant change compared to prior EKG yesterday Prior: Unchanged Discharge Plan Dx/Rx/DC Orders Clinical Impression: Hyperkalemia Disposition Disposition: Acute Care Hospital [facility] Discharge Date/Time: 10/16/20 16:07
--- NOTE | 2020-10-16 12:46 | NURSING ---
CHEMISTRIES HEMOLIZED
[2020-10-16 13:16] LABS: Anion Gap 4 (5-15); BUN 73 mg/dL (7-18); Chloride 114 mmol/L (98-107); Creatinine, Serum 1.14 mg/dL (0.55-1.02); EST Glomerular Filtration Rate 50 mL/min (>60); Est Glom Filt Rate - Afr Amer 60 mL/min (>60); Estimated Creatinine Clearance 59.88 ml/min; Glucose 84 mg/dL (74-106); Potassium 6.5 mmol/L (3.5-5.1); Sodium Level 141 mmol/L (136-145)
--- NOTE | 2020-10-16 14:07 | EKG12_ITS ---
Test Reason : ABNORMAL LABS Blood Pressure : / mmHG Vent. Rate : 057 BPM Atrial Rate : 057 BPM P-R Int : 180 ms QRS Dur : 072 ms QT Int : 362 ms P-R-T Axes : 035 -08 025 degrees QTc Int : 352 ms Sinus bradycardia Otherwise normal ECG Confirmed by MARIBETH KOHLER, ADEOLA ([id number]), clinical editor YI LANCE ([id number]) on 10/17/2020 11:47:52 AM Referred By: RHIANNA Confirmed By:ADEOLA STAHL MD
[2020-10-16 14:40] LABS: Potassium 6.3 mmol/L (3.5-5.1)
--- NOTE | 2020-10-16 14:41 | ED.RN ---
Lab called Potassium of 6.3. on redraw.no hemolysis. Dr lomeli
--- NOTE | 2020-10-16 15:14 | NURSING ---
PCU OBS DR ZAZUETA HYPERKALEMIA
[2020-10-16] MEDS: Sodium Polystyrene Sulfonate 15 GM/60 ML UDC 30 GM PO (15:26)
[2020-10-16] MEDS: Insulin Lispro 10 UNIT in Syringe 0 ML 6 UNIT IV (15:26)
[2020-10-16] MEDS: Dextrose 50%-Water 25 GM/50 ML DISP.SYRIN IV (15:26)
[2020-10-16] MEDS: Dextrose 10%-Water 250 ML 40 ML IV (15:27)
--- NOTE | 2020-10-16 15:38 | HP.PCM.HOS_ITS ---
Documented by User: Lucille Pérez NP, [employer] 10/16/20 16:06 HPI - General General Date of Admission: 10/16/20 Date of Service: 10/16/20 Chief Complaint: High potassium HPI Narrative EDWIN CANDELARIA, is a 74 F who presents to the emergency room due to high potassium. Patient was in the emergency room yesterday with potassium 5.4. Her lisinopril was discontinued and she returned to SNF for ongoing treatment and evaluation. Her potassium was repeated today at [facility] and was reported to be 6.7 and she was sent back to the emergency room. Potassium in the emergency room was 6.5, repeat 6.3. Patient is asymptomatic. She states she has a history of intermittent high potassium in the past. She does have a history of renal insufficiency however her renal function is currently at baseline. She has a past medical history of severe osteoarthritis with debility, hypertension, chronic stage III buttock wound, chronic bilateral lower extremity stasis disease, chronic kidney disease stage IIIa. [facility] Medical History Anxiety Diverticulosis GERD (gastroesophageal reflux disease) Hypertension Home Medications acetaminophen 650 mg PO Q6H PRN PRN tablet 07/13/20 [Rx Last Taken Unknown] famotidine 20 mg PO BID 07/13/20 [History Last Taken Unknown] gabapentin 300 mg PO QHS 30 Days #30 cap 07/28/20 [Rx Last Taken Unknown] amlodipine 5 mg PO DAILY #30 tab 10/15/20 [Rx Last Taken Unknown] duloxetine 30 mg PO DAILY 10/15/20 [History Last Taken Unknown] hydrocodone-acetaminophen [[place]] 1 tab PO BID 10/15/20 [History Last Taken Unknown] nystatin [Nyamyc] 1 applic TOPICAL BID 10/15/20 [History Last Taken Unknown] Allergy/AdvReac Type Severity Reaction Status Date / Time Iodinated Contrast Media Allergy PT UNSURE Verified 10/15/20 11:04 [CONTRASTS] OF REACTION simvastatin Allergy PT UNSURE Verified 10/15/20 11:04 OF REACTION valdecoxib Allergy PT UNSURE Verified 10/15/20 11:04 OF REACTION DIDOFENAC Allergy PT UNSURE Uncoded 10/15/20 11:04 OF REACTION Family History Mother Cancer other (Denies known paternal family history including cardiac history.) Surgical History H/O: hysterectomy History of intestinal surgery Hx of appendectomy S/P tonsillectomy Social History housing: [facility] Smoking Status: Never smoker alcohol intake: never substance use type: does not use ROS Constitutional Constitutional: Denies change in weight, chills, fatigue, fever(s) or weakness Cardiovascular Cardiovascular: Denies chest pain, edema, lightheadedness, palpitations or syncope Respiratory/Chest Respiratory/Chest: Denies cough, dyspnea, productive cough, shortness of breath at rest, shortness of breath with exertion or wheezing Gastrointestinal Gastrointestinal: Denies abdominal pain, constipation, diarrhea, nausea or v omiting Genitourinary Genitourinary: Denies burning urination, difficulty urinating, dysuria, hematuria, urinary frequency, urinary incontinence or urinary urgency Musculoskeletal Musculoskeletal: Denies back pain, joint pain or muscle weakness Integumentary Integumentary: Denies erythema, lesions, rash or wounds Neurologic Neurologic: Denies abnormal speech, confusion, dizziness, focal weakness, numbness, paresthesias, seizure-like activity or syncope Psychiatric Psychiatric: Denies anxiety or depression Hematologic/Lymphatic Hematologic/Lymphatic: Denies anemia, easy bleeding or easy bruising Allergic/Immunologic Allergic/Immunologic: Denies hives or asthma Vital Signs Vital Signs Vital Signs: 10/16/20 12:13 10/16/20 12:17 10/16/20 15:27 Temperature 98.7 F 98 F Temperature Source Oral Temporal Pulse Rate 68 62 Respiratory Rate 16 15 Respiratory Effort Normal Non-Labored Blood Pressure 128/78 H 118/82 H Blood Pressure Mean 94 94 Pulse Ox 100 96 Oxygen Delivery Method Room Air Room Air Weight Weight: 190 lb 4.143 oz Body Mass Index (BMI) 42.6 Physical Exam Const alert, oriented x3 and no apparent distress Orientation / Consciousness: awake, oriented to person, oriented to place and oriented to time HEENT normocephalic and moist oral mucous membranes Eyes PERRL, EOMs intact bilaterally and conjunctivae normal Neck no lymphadenopathy Resp normal respiratory effort and clear to auscultation bilaterally Cardio regular rate, regular rhythm and no murmurs Peripheral Pulses: pulses 2+ throughout GI normal to inspection, nondistended, normoactive bowel sounds, non-tender and non-distended Extremity normal to inspection Skin no rashes or lesions noted Lesions: no lesions Rashes: no rashes Trauma: no lacerations or abrasions Neuro CN's II-XII intact bilaterally, no focal motor deficits, no sensory deficits noted and deep tendon reflexes 2+ bilaterally Psych mental status grossly normal and affect normal Results Lab / Micro Data Result Diagrams: 10/16/20 14:25 Labs: Laboratory Results - last 24 hr 10/16/20 12:23: Sodium Cancelled, Potassium Cancelled, Chloride Cancelled, Carbon Dioxide Cancelled, Anion Gap Cancelled, BUN Cancelled, Creatinine Cance lled, Estim Creat Clear Calc Cancelled, Est GFR (MDRD) Af Amer Cancelled, Est GFR (MDRD) Non-Af Cancelled, BUN/Creatinine Ratio Cancelled, Glucose Cancelled, Calcium Cancelled 10/16/20 12:50: Sodium 141, Potassium 6.5 H*, Chloride 114 H, Carbon Dioxide 23.0, Anion Gap 4 L, BUN 73 H, Creatinine 1.14 H, Estim Creat Clear Calc 59.88, Est GFR (MDRD) Af Amer 60, Est GFR (MDRD) Non-Af 50 L, BUN/Creatinine Ratio 64.0 H, Glucose 84, Calcium 8.0 L 10/16/20 14:25: Potassium 6.3 H* Assessment & Plan Assessment/Plan (1) Hyperkalemia: PLAN: 1. Hyperkalemia-lisinopril discontinued. Patient received IV dextrose and aerosols in emergency room. IV fluids. Kayexalate x1. Trend BMP. 2. Hypertension- on amlodipine. PRN hydralazine for SBP >160. 3. 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 Dressing changes as needed. 4. Bilateral lower extremity venous stasis disease/PVD 5. Severe OA, associated chronic debility- recent BL knee injections. PT/OT. Resides in SNF. 6. Chronic kidney disease stage IIIa- at baseline. DVT prophylaxis- Lovenox sc This patient was seen by BERNA Lemon under the supervision of Dr. Post. Documented by User: Dr. Jeanette Post DO 10/16/20 16:21 HPI - General General Date of Admission: 10/16/20 Date of Service: 10/16/20 Chief Complaint: Abnormal lab HPI Narrative This patient was seen in conjunction with Lucille Pérez NP. The following is representation my independent history and physical examination. Please see below for any additional information. Mrs. Candelaria is a 74-year-old white female who presented to the emergency department was grasped on 10/16/2020 with lab abnormalities. She was referred to the emergency department yesterday for hyperkalemia. At that time she was given treatment to cause intracellular shift of potassium in her home lisinopril was stopped. It appears lisinopril was started for antihypertensives in July of this year per prescription records. It was felt that she could be treated at her nursing facility for any remaining hyperkalemia and [facility] was [facility] the [facility]. Her repeat potassium today was 6.3 up from 5.4 yesterday. She was therefore referred back to the emergency department for treatment. Her vital signs are unremarkable. Her CBC from 10/15/2020 was unremarkable. Her BMP shows hyperkalemia with a potassium of 6.3 as noted above, hyperchloremia with a chloride of 114, normal anion gap and serum bicarb, elevated BUN with a serum creatinine of 1.14. It appears that her baseline creatinine has fluctuated but since June has been running anywhere from 1.3-1.4. Her EKG shows mildly peaked T waves. She was treated again in the emergency department with temporizing medications but this time was also given Kayexalate. She has not taken lisinopril since yesterday when it was discontinued. [facility] Medical History Anxiety Diverticulosis GERD (gastroesophageal reflux disease) Hypertension Home Medications acetaminophen 650 mg PO Q6H PRN PRN tablet 07/13/20 [Rx Last Taken Unknown] famotidine 20 mg PO BID 07/13/20 [History Last Taken Unknown] gabapentin 300 mg PO QHS 30 Days #30 cap 07/28/20 [Rx Last Taken Unknown] amlodipine 5 mg PO DAILY #30 tab 10/15/20 [Rx Last Taken Unknown] duloxetine 30 mg PO DAILY 10/15/20 [History Last Taken Unknown] hydrocodone-acetaminophen [[place]] 1 tab PO BID 10/15/20 [History Last Taken Unknown] nystatin [Nyamyc] 1 applic TOPICAL BID 10/15/20 [History Last Taken Unknown] Allergy/AdvReac Type Severity Reaction Status Date / Time Iodinated Contrast Media Allergy PT UNSURE Verified 10/15/20 11:04 [CONTRASTS] OF REACTION simvastatin Allergy PT UNSURE Verified 10/15/20 11:04 OF REACTION valdecoxib Allergy PT UNSURE Verified 10/15/20 11:04 OF REACTION DIDOFENAC Allergy PT UNSURE Uncoded 10/15/20 11:04 OF REACTION Family History Mother Cancer Surgical History H/O: hysterectomy History of intestinal surgery Hx of appendectomy S/P tonsillectomy Social History housing: [facility] Smoking Status: Never smoker alcohol intake: never substance use type: does not use ROS Constitutional Constitutional: Denies anorexia, change in weight, chills, fatigue, fever(s), malaise, night sweats, weakness or other Eyes Eyes: Denies blurry vision, change in eye color, change in vision, discharge from eye(s), double vision, erythema, eye pain, loss of vision or other ENT HEENT: Denies abnormal hearing, dysphagia, ear pain, epistaxis, headache(s), hearing loss, nasal congestion, nasal discharge, post nasal drip, sinus pressure, sore throat or other Cardiovascular Cardiovascular: Denies chest pain, claudication, dyspnea on exertion, edema, lightheadedness, orthopnea, palpitations, paroxysmal nocturnal dyspnea, rapid heart rate, syncope or other Respiratory/Chest Respiratory/Chest: Denies cough, dyspnea, excessive phlegm production, hemoptysis, productive cough, shortness of breath at rest, shortness of breath with exertion, wheezing or other Gastrointestinal Gastrointestinal: Denies abdominal pain, coffee ground emesis, constipation, diarrhea, dyspepsia, hematemesis, hematochezia, loose stools, melena, nausea, vomiting or other Genitourinary Genitourinary: Denies burning urination, difficulty urinating, dysuria, hematuria, nocturia, urinary frequency, urinary hesitancy, urinary incontinence, urinary urgency or other Musculoskeletal Musculoskeletal: Reports arthralgias, joint pain, joint stiffness and joint swelling Neurologic Neurologic: Reports other Details: Bilateral lower extremity weakness Psychiatric Psychiatric: Denies anxiety, depression, homicidal ideation, suicidal ideation or other Endocrine Endocrinology: Denies change in body appearance, cold intolerance, excessive sweating, heat intolerance, polydipsia, polyuria or other Hematologic/Lymphatic Hematologic/Lymphatic: Denies anemia, easy bleeding, easy bruising, lymphadenopathy or other Allergic/Immunologic Allergic/Immunologic: Denies rhinitis, hives, eczemia, asthma or other Physical Exam Const alert, oriented x3 and no apparent distress Constitutional Narrative: Morbidly obese older white female, appears older than stated age, sitting up in bed, appears comfortable, nontoxic General Appearance: cooperative HEENT normocephalic, head/scalp atraumatic, hearing grossly normal bilaterally, moist oral mucous membranes, oropharynx normal and dentition normal HEENT Narrative: Good dentition, Mallampati 3, no thrush Mouth: oral and palatal mucosa normal and moist mucous membranes abnormal Eyes PERRL, EOMs intact bilaterally and conjunctivae normal Neck no lymphadenopathy, supple, no JVD and no carotid bruits Neck Narrative: Trachea midline, no noted thyroid enlargement or nodules Resp normal respiratory effort, no retractions, no use of accessory muscles and clear to auscultation bilaterally Cardio regular rate, regular rhythm, S1 normal heart sound, S2 normal heart sound, no murmurs, no rub, no gallops, no clicks and no JVD GI normal to inspection, nondistended, normoactive bowel sounds, soft to palpation, non-tender and non-distended Extremity no clubbing, cyanosis or edema Extremity Narrative: Bruises bilateral knees, tenderness at knee joints bilaterally Peripheral Pulses: Yes pulses 2+ throughout Skin no rashes or lesions noted, no wounds, skin turgor normal, no jaundice, no petechiae and no mottling Skin Narrative: Scattered ecchymosis Neuro oriented x3, CN's II-XII intact bilaterally and moves all extremities Neuro Narrative: Bilateral lower extremity weakness Sensorium / Orientation: awake, alert, oriented to person, oriented to place and oriented to time Speech: speech normal Psych affect normal Results Lab / Micro Data Result Diagrams: 10/16/20 14:25 Assessment & Plan Assessment/Plan (1) Hyperkalemia: (2) CKD (chronic kidney disease): PLAN: Assessment: Acute hyperkalemia Hypertension CKD stage IIIb Stage III chronic buttock pressure ulcer Severe osteoarthritis Morbid obesity Debility Plan: Kayexalate given in emergency department -IV fluids Every 6 hour BMPs -Monitor blood pressure with discontinuation of lisinopril--> continue amlodipine but patient may very well likely need further therapy -Monitor renal function -If able to treat her hyperkalemia adequately possible discharge tomorrow Charges/Coding Visit Charges Inpatient E&M: 03130 Init Hosp L2
[2020-10-16] MEDS: Albuterol 2.5 MG/3 ML VIAL.NEB. INHALATION (15:50)
[2020-10-16 17:35] LABS: Anion Gap 9 (5-15); BUN 67 mg/dL (7-18); BUN/Creat Ratio 57.3 RATIO (10-20); Calcium,Total 9.5 mg/dL (8.5-10.1); Chloride 113 mmol/L (98-107); Creatinine, Serum 1.17 mg/dL (0.55-1.02); EST Glomerular Filtration Rate 48 mL/min (>60); Est Glom Filt Rate - Afr Amer 58 mL/min (>60); Estimated Creatinine Clearance 54.35 ml/min; Glucose 77 mg/dL (74-106); Sodium Level 140 mmol/L (136-145)
[2020-10-16] MEDS: Famotidine 20 MG Tablet PO (21:31)
[2020-10-16] MEDS: Gabapentin 300 MG Capsule PO (21:31)
[2020-10-16] MEDS: 0.9% Normal Saline 1,000 ML 75 ML IV (21:53)
[2020-10-17 03:00] VITALS: BP 127/42; PULSE 48; PULSE 50; RESP 14; TEMP 36.5; O2SAT 98
[2020-10-17 07:11] LABS: Anion Gap 5 (5-15); BUN 56 mg/dL (7-18); BUN/Creat Ratio 51.4 RATIO (10-20); Calcium,Total 8.1 mg/dL (8.5-10.1); Chloride 113 mmol/L (98-107); Creatinine, Serum 1.09 mg/dL (0.55-1.02); EST Glomerular Filtration Rate 52 mL/min (>60); Est Glom Filt Rate - Afr Amer 63 mL/min (>60); Estimated Creatinine Clearance 58.34 ml/min; Glucose 82 mg/dL (74-106); Potassium 5.6 mmol/L (3.5-5.1); Sodium Level 141 mmol/L (136-145)
[2020-10-17 07:57] VITALS: PULSE 47
[2020-10-17 08:15] VITALS: BP 130/50; PULSE 46; RESP 15; TEMP 36.6; O2SAT 100
[2020-10-17] MEDS: Enoxaparin 40 MG/0.4 ML Syringe SC (08:58)
[2020-10-17] MEDS: 0.9% Normal Saline 1,000 ML 75 ML IV (08:59)
[2020-10-17] MEDS: DULoxetine Hcl 30 MG Capsule PO (08:59)
[2020-10-17] MEDS: Famotidine 20 MG Tablet PO (08:59)
--- NOTE | 2020-10-17 09:44 | CASEMGMT ---
LW/Healthcare POA forms in the summary tab of the echart, daughter in law Fabi Frost is POA and son Davie Frsot is alternate. KRISTAL Hdez
[2020-10-17] MEDS: Sodium Polystyrene Sulfonate 15 GM/60 ML UDC 30 GM PO (09:54)
--- NOTE | 2020-10-17 10:11 | CASEMGMT ---
Addendum entered by Stephenie Shankar 10/17/20 10:54: SW spoke w/[facility], pt is there under Medicaid and can return any time but they would prefer pt get PT/OT prior to returning, and they will try to get an authorization from pt's [employer] insurance for additional skilled time. SW spoke w/pt's daughter in law, let her know pt will be able to return to [facility] today, and explained the above information as well. SW explained will let her know once pt is set up to return to [facility]. Daughter in law states understanding, SW will continue to follow. KRISTAL Hdez Original Note: SW reviewed chart, pt is here from the [facility]. SW spoke w/pt, she confirms her plan is to return to the [facility], she states she has been there for a couple of months. SW called [facility], message left inquiring if pt needs precert to return. VERA attempted to call pt's daughter in law and Fabi COLES, her voicemail is not set up yet. Once pt has PT/OT, VERA will send updates to [facility]. KRISTAL Hdez
--- NOTE | 2020-10-17 11:54 | PCM.TXEXTCAR ---
Diet 10/16/20 16:15 Diet: Renal - General Food consistency:: Regular Liquid Consistency:: Regular/Thin Diet Comments: LOW POTASSIUM DIET ALSO Routine Orders/Code Status Enema Type: Fleetz Enema Frequency: Daily PRN Suppository Type: Dulcolax 10mg Suppository Frequency: Daily PRN Routine Lab Work: - (repeat BMP daily for 3 days then weekly) Code Status: Full Code Suggestions for Active Care Change Position every (hours): 2 Times a day to sit in chair: 3 Therapies Physical Therapy: Eval and Treat Occupational Therapy: Eval and Treat Problem/Diagnosis (1) Hyperkalemia: Status: Acute (2) CKD (chronic kidney disease): Status: Chronic Allergies/Procedures Done in Hospital Allergies Iodinated Contrast Media [CONTRASTS] Allergy (Verified 10/15/20 11:04) PT UNSURE OF REACTION simvastatin Allergy (Verified 10/15/20 11:04) PT UNSURE OF REACTION valdecoxib Allergy (Verified 10/15/20 11:04) PT UNSURE OF REACTION DIDOFENAC Allergy (Uncoded 10/15/20 11:04) PT UNSURE OF REACTION Procedures: None Type of Care/Length of Stay Estimated LOS: More Than 30 Days Type of Care Needed: Skilled Rehab Potential: Fair Prognosis: Fair Additional Orders/Day of Discharge H&P will serve as current which was dated: 10/16/20 Day of Discharge: 10/17/20 Dietary and Speech Recommendations Dietitian Recommendations/Changes: Rec continue therapeutic diet as ordered Discharge Plan Admission Admit Date/Time: 10/16/20 22:11 Primary Reason for Your Visit: high potassium Attending Provider: Krystian Grant Primary Care Provider: Umberto Aquino Discharge Orders/Prescriptions Prescriptions: Continued acetaminophen 325 MG tablet 650 mg PO Q6H PRN PRN (Reason: Pain Score 1-10/Temp > 100.7 F) RF: 0 famotidine 20 MG tablet 20 mg PO BID RF: 0 gabapentin 300 mg Capsule 300 mg PO QHS 30 Days Qty: 30 RF: 0 hydrocodone-acetaminophen 5-325 mg Tablet 1 tab PO BID RF: 0 nystatin [Nyamyc] 100,000 unit/gram powder 1 applic TOPICAL BID RF: 0 duloxetine 30 mg capsule,delayed release(DR/EC) 30 mg PO DAILY RF: 0 amlodipine 5 mg tablet 5 mg PO DAILY Qty: 30 RF: 0 magnesium hydroxide [Milk of Magnesia] 400 mg/5 mL Suspension 5 ml PO DAILY PRN (Reason: Constipation) RF: 0 bisacodyl 10 mg Suppository 10 mg AL DAILY PRN (Reason: consaitpaiton) RF: 0 Referrals / Follow Up: Umberto Aquino MD [Primary Care Provider] - In 1 Week Disposition Disposition (needs filled in before D/C Order can be placed): Residential Facility
[2020-10-17 12:00] VITALS: PULSE 55
--- NOTE | 2020-10-17 12:03 | DS.PCM_ITS ---
Documented by User: Lucille Pérez NP, WAFER POLISHING WORKER-C 10/17/20 12:08 Providers Date of Admission: 10/16/20 Date of Discharge: 10/17/20 Primary Care Physician: Dr. Umberto Aquino MD Consultations 10/16/20 16:15 Consult: Onc/Wound/cheesemaker Routine Comment: Reason for Consult:: Chronic buttock wound Reason For Visit: HYPERKALEMIA Diagnosis Discharge Diagnosis (1) Hyperkalemia: Status: Acute Code(s): E87.5 - Hyperkalemia (2) CKD (chronic kidney disease): Status: Chronic Code(s): N18.9 - Chronic kidney disease, unspecified Medications at Discharge Home Medications acetaminophen 650 mg PO Q6H PRN PRN tablet 07/13/20 famotidine 20 mg PO BID 07/13/20 gabapentin 300 mg PO QHS 30 Days #30 cap 07/28/20 amlodipine 5 mg PO DAILY #30 tab 10/15/20 duloxetine 30 mg PO DAILY 10/15/20 hydrocodone-acetaminophen 1 tab PO BID 10/15/20 nystatin [Nyamyc] 1 applic TOPICAL BID 10/15/20 bisacodyl 10 mg [place] DAILY PRN 10/16/20 magnesium hydroxide [Milk of Magnesia] 5 ml PO DAILY PRN 10/16/20 Hospital Course Operations None Procedures None Summary of Care Provided Minutes Spent on Discharge: 35 Hospital Course: Patient is a 74-year-old female admitted 10/16/2020 due to abnormal labs with high potassium. 1. Hyperkalemia-lisinopril discontinued 10/15/20. Patient received IV dextrose and aerosols in emergency room. IV fluids. Kayexalate x2. Potassium trend during admission 6.5, 6.3, 5.0, 5.6. Additional potassium level following second dose of Kayexalate pending at discharge. Serum aldosterone, serum cortisol and plasma renin pending at discharge to assess for hyperaldosteronism. However, suspect related to DINESH inhibitor. Further follow-up as outpatient/at SNF. Recommend daily potassium check, patient responding well to lactulose. Recommend as needed lactulose for increased potassium. Follow-up with PCP in 1 week. 2. Hypertension- on amlodipine. Stable. 3. 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 Dressing changes as needed. 4. Bilateral lower extremity venous stasis disease/PVD 5. Severe OA, associated chronic debility- recent BL knee injections. PT/OT. Resides in SNF. 6. Chronic kidney disease stage IIIa- at baseline. Physical Exam Const alert, oriented x3 and no apparent distress Orientation / Consciousness: awake, oriented to person, oriented to place and oriented to time HEENT normocephalic and moist oral mucous membranes Eyes PERRL, EOMs intact bilaterally and conjunctivae normal Neck no lymphadenopathy Resp normal respiratory effort and clear to auscultation bilaterally Cardio regular rate, regular rhythm and no murmurs Peripheral Pulses: pulses 2+ throughout GI normal to inspection, nondistended, normoactive bowel sounds, non-tender and non-distended Extremity normal to inspection Skin no rashes or lesions noted Lesions: no lesions Rashes: no rashes Trauma: no lacerations or abrasions Neuro CN's II-XII intact bilaterally, no focal motor deficits, no sensory deficits noted and deep tendon reflexes 2+ bilaterally Psych mental status grossly normal and affect normal Patient seen and examined prior to discharge. Physical assessment as noted above. Patient is stable for discharge with follow up recommendations as noted above. This patient was seen by BERNA Lemon under the supervision of Dr. Grant. Weight / BMI Weight Weight: 177 lb 4.026 oz Body Mass Index (BMI) 39.7 ABG / Lab / Microbiology Data Result Diagrams: 10/17/20 12:35 Laboratory: Laboratory Results - last 24 hr 10/16/20 12:23: Sodium Cancelled, Potassium Cancelled, Chloride Cancelled, Carbon Dioxide Cancelled, Anion Gap Cancelled, BUN Cancelled, Creatinine Can celled, Estim Creat Clear Calc Cancelled, Est GFR (MDRD) Af Amer Cancelled, Est GFR (MDRD) Non-Af Cancelled, BUN/Creatinine Ratio Cancelled, Glucose Cancelled, Calcium Cancelled 10/16/20 12:50: Sodium 141, Potassium 6.5 H*, Chloride 114 H, Carbon Dioxide 23.0, Anion Gap 4 L, BUN 73 H, Creatinine 1.14 H, Estim Creat Clear Calc 59.88, Est GFR (MDRD) Af Amer 60, Est GFR (MDRD) Non-Af 50 L, BUN/Creatinine Ratio 64.0 H, Glucose 84, Calcium 8.0 L 10/16/20 14:25: Potassium 6.3 H* 10/16/20 16:43: Sodium 140, Potassium 5.0, Chloride 113 H, Carbon Dioxide 18.0 L , Anion Gap 9, BUN 67 H, Creatinine 1.17 H, Estim Creat Clear Calc 54.35, Est GFR (MDRD) Af Amer 58 L, Est GFR (MDRD) Non-Af 48 L, BUN/Creatinine Ratio 57.3 H , Glucose 77, Calcium 9.5 10/17/20 06:10: Sodium 141, Potassium 5.6 H, Chloride 113 H, Carbon Dioxide 23.0, Anion Gap 5, BUN 56 H, Creatinine 1.09 H, Estim Creat Clear Calc 58.34, Est GFR (MDRD) Af Amer 63, Est GFR (MDRD) Non-Af 52 L, BUN/Creatinine Ratio 51.4 H, Glucose 82, Calcium 8.1 L Meaningful Use Info Meaningful Use Diagnoses (Choose all that apply): None applicable Discharge Plan Admission Admit Date/Time: 10/16/20 22:11 Primary Reason for Your Visit: high potassium Attending Provider: Krystian Grant Primary Care Provider: Umberto Aquino Discharge Orders/Prescriptions Prescriptions: Continued acetaminophen 325 MG tablet 650 mg PO Q6H PRN PRN (Reason: Pain Score 1-10/Temp > 100.7 F) RF: 0 famotidine 20 MG tablet 20 mg PO BID RF: 0 gabapentin 300 mg Capsule 300 mg PO QHS 30 Days Qty: 30 RF: 0 hydrocodone-acetaminophen 5-325 mg Tablet 1 tab PO BID RF: 0 nystatin [Nyamyc] 100,000 unit/gram powder 1 applic TOPICAL BID RF: 0 duloxetine 30 mg capsule,delayed release(DR/EC) 30 mg PO DAILY RF: 0 amlodipine 5 mg tablet 5 mg PO DAILY Qty: 30 RF: 0 magnesium hydroxide [Milk of Magnesia] 400 mg/5 mL Suspension 5 ml PO DAILY PRN (Reason: Constipation) RF: 0 bisacodyl 10 mg Suppository 10 mg IL DAILY PRN (Reason: consaitpaiton) RF: 0 Referrals / Follow Up: Umberto Aquino MD [Primary Care Provider] - In 1 Week Disposition Disposition (needs filled in before D/C Order can be placed): [facility] Documented by User: Dr. Krystian Grant MD 10/17/20 14:14 Providers Date of Admission: 10/16/20 Reason For Visit: HYPERKALEMIA Medications at Discharge Home Medications acetaminophen 650 mg PO Q6H PRN PRN tablet 07/13/20 famotidine 20 mg PO BID 07/13/20 gabapentin 300 mg PO QHS 30 Days #30 cap 07/28/20 amlodipine 5 mg PO DAILY #30 tab 10/15/20 duloxetine 30 mg PO DAILY 10/15/20 hydrocodone-acetaminophen 1 tab PO BID 10/15/20 nystatin [Nyamyc] 1 applic TOPICAL BID 10/15/20 bisacodyl 10 mg [place] DAILY PRN 10/16/20 magnesium hydroxide [Milk of Magnesia] 5 ml PO DAILY PRN 10/16/20 ABG / Lab / Microbiology Data Result Diagrams: 10/17/20 12:35 Discharge Plan Admission Admit Date/Time: 10/16/20 22:11 Primary Reason for Your Visit: high potassium Attending Provider: Krystian Grant Primary Care Provider: Umberto Aquino Discharge Orders/Prescriptions Prescriptions: Continued acetaminophen 325 MG tablet 650 mg PO Q6H PRN PRN (Reason: Pain Score 1-10/Temp > 100.7 F) RF: 0 famotidine 20 MG tablet 20 mg PO BID RF: 0 gabapentin 300 mg Capsule 300 mg PO QHS 30 Days Qty: 30 RF: 0 hydrocodone-acetaminophen 5-325 mg Tablet 1 tab PO BID RF: 0 nystatin [Nyamyc] 100,000 unit/gram powder 1 applic TOPICAL BID RF: 0 duloxetine 30 mg capsule,delayed release(DR/EC) 30 mg PO DAILY RF: 0 amlodipine 5 mg tablet 5 mg PO DAILY Qty: 30 RF: 0 magnesium hydroxide [Milk of Magnesia] 400 mg/5 mL Suspension 5 ml PO DAILY PRN (Reason: Constipation) RF: 0 bisacodyl 10 mg Suppository 10 mg [place] DAILY PRN (Reason: consaitpaiton) RF: 0 Referrals / Follow Up: Umberto Aquino MD [Primary Care Provider] - In 1 Week Disposition Disposition (needs filled in before D/C Order can be placed): [facility] Facility Charges/Coding Addendum Addendum: Dr. Grant: I personally reviewed the chart and examined the patient, and agree with the jaimee segovia findings. 74-year-old female was been to the hospital multiple times last 2 days secondary to hyperkalemia. The first time here in the ER they treated her with short acting agents to reduce her potassium but not provide her with Kayexalate, she went back to the intermediate where she was found to have elevated potassium once again. She has responded very well to Kayexalate and her lisinopril was discontinued. Would continue periodic checks and if necessary provide her with Kayexalate on the outpatient basis. Visit Charges Inpatient E&M: 23975 Disch Hosp
[2020-10-17 13:10] LABS: Potassium 4.7 mmol/L (3.5-5.1)
--- NOTE | 2020-10-17 14:01 | CASEMGMT ---
SW spoke w/Hailey again at [facility], pt's Medicaid number is [id number]. SW left message w/financial dept w/Medicaid number. [facility]A faxed over PT/OT, discharge instructions, and negative COVID to [facility]. VERA set up a 3pm ambulance w/Physicians. VERA let pt, pt's daughter in law, Hailey at [facility], and pt's RN know time of transport. No further needs are anticipated. KRISTAL Hdez
[2020-10-17 14:15] VITALS: BP 134/59; PULSE 63; RESP 16; TEMP 36.4; O2SAT 98
--- NOTE | 2020-10-17 15:00 | CHAPLAIN ---
Type of Pastoral Visit _x__ Initial Visit ___ Follow-up Visit ___ On-call Visit ___ General Patient Visit ___ Spiritual Assessment ___ Family Conference ___ Bereavement ___ Rapid Response ___ Code Blue ___ Other (describe below) Pastoral Care Referral From _x__ Patient ___ Family ___ Nurse ___ Physician ___ Sample Prep Technician ___ Blacksmith Hammer Operator ___ Other (describe below) Sacrament/Intervention _x__ Active listening ___ Anointing ___ Mandaeism ___ Bereavement ___ Communion ___ Fartun exploration ___ _x__ Life review _x__ Prayer ___ Reconciliation ___ Sacrament of Sick ___ Supportive presence ___ Wedding ___ Other (describe below) Pastoral Comments
[2020-10-21 03:07] LABS: Aldosterone, Serum < 1.0 ng/dL (0.0-30.0)
[2020-10-21 10:49] LABS: Renin, Plasma 2.315 ng/mL/hr (0.167-5.380)
== END 2020-10-17 15:10 | disposition skilled nursing facility (03) | DRG 640 ==
LOC: ED 15:19 → PCU 15:46
PROVIDERS: Nurse Practitioner Family; Admitting Provider Internal Medicine Nephrology; Emergency Provider Emergency Medicine; PCP Family Medicine; Visit Provider Family Medicine
DX: E87.5 Hyperkalemia (principal); L89.303 Pressure ulcer of unspecified buttock, stage 3; Z68.41 Body mass index [BMI] 40.0-44.9, adult; I12.9 Hypertensive chronic kidney disease with stage 1 through stage 4 chronic kidney disease, or unspecified chronic kidney disease; N18.31 Chronic kidney disease, stage 3a; E87.8 Other disorders of electrolyte and fluid balance, not elsewhere classified; M19.90 Unspecified osteoarthritis, unspecified site; R53.81 Other malaise; K21.9 Gastro-esophageal reflux disease without esophagitis; F41.9 Anxiety disorder, unspecified; E66.01 Morbid (severe) obesity due to excess calories; Z79.899 Other long term (current) drug therapy
CPT/HCPCS: 36415; 80048; 82088; 82533; 84132; 84244; 85025; 87426; 93005; 94640; 96361; 96365; 96372; 96374; 96375; 97162; 97165; 99218; 99285; J7030; A4216; G0378; J0610

== ENCOUNTER 2020-11-09 12:38 | Emergency (ER) | payer MEDICARE, MEDICAID, SELFPAY ==
[2020-10-16 16:40] VITALS: BMI 39.7
[2020-11-09 12:39] VITALS: BP 137/72; BP 140/67; PULSE 72; RESP 17; RESP 20; TEMP 36.7; O2SAT 97; O2SAT 99; BMI 42.4
--- NOTE | 2020-11-09 13:05 | EKG12_ITS ---
Test Reason : CP Blood Pressure : / mmHG Vent. Rate : 074 BPM Atrial Rate : 074 BPM P-R Int : 166 ms QRS Dur : 070 ms QT Int : 360 ms P-R-T Axes : 031 -10 018 degrees QTc Int : 399 ms Normal sinus rhythm Normal ECG Confirmed by GRISEL KOHLER, ROBIN ([id number]), web content editor YI LANCE ([id number]) on 11/11/2020 9:29:51 AM Referred By: ULICES Confirmed By:JAYE RECINOS MD
--- NOTE | 2020-11-09 13:05 | ED.VIS.CHEST ---
HPI History of Present Illness Chief Complaint: Chest Pain Informant: patient Onset/Context/Timing Onset: Hours (3-4) Activity at onset: sudden (After breakfast) Timing: Continuous Quality: Positive for Pain Location: Left Chest (Without radiation or other discomfort) Current Severity: Moderate Maximum Severity: Moderate Worsened By: Nothing; Not Worsened By Exertion, Movement of Arm, Movement of Torso, Breathing and Coughing Relieved By: Nothing and - (Pressing on it with her hand) Associated Symptoms: Positive for Nausea (Feels like if I vomited it would go away); Negative for Vomiting, Diaphoresis, Dyspnea, Cough, Lightheadedness and Palpitations Narrative Narrative: 74-year-old shelter patient presents with left-sided constant nonpleuritic chest discomfort that started around 10 minutes after she ate breakfast this morning. She states she had oatmeal which she has often. It has been constant since then, 3 or 4 hours. She has tried no medications for this since it started. No known history of heart disease. [facility] Medical History Anxiety CKD (chronic kidney disease) Diverticulosis GERD (gastroesophageal reflux disease) Hypertension Murmur Home Medications acetaminophen 650 mg PO Q6H PRN PRN tablet 07/13/20 [Rx Last Taken Unknown] famotidine 20 mg PO BID 07/13/20 [History Last Taken Unknown] gabapentin 300 mg PO QHS 30 Days #30 cap 07/28/20 [Rx Last Taken Unknown] amlodipine 5 mg PO DAILY #30 tab 10/15/20 [Rx Last Taken Unknown] duloxetine 30 mg PO DAILY 10/15/20 [History Last Taken Unknown] hydrocodone-acetaminophen 1 tab PO BID 10/15/20 [History Last Taken Unknown] nystatin [Nyamyc] 1 applic TOPICAL BID 10/15/20 [History Last Taken Unknown] bisacodyl 10 mg [place] DAILY PRN 10/16/20 [History Last Taken Unknown] magnesium hydroxide [Milk of Magnesia] 5 ml PO DAILY PRN 10/16/20 [History Last Taken Unknown] Allergy/AdvReac Type Severity Reaction Status Date / Time Iodinated Contrast Media Allergy PT UNSURE Verified 10/15/20 11:04 [CONTRASTS] OF REACTION simvastatin Allergy PT UNSURE Verified 10/15/20 11:04 OF REACTION valdecoxib Allergy PT UNSURE Verified 10/15/20 11:04 OF REACTION DIDOFENAC Allergy PT UNSURE Uncoded 10/15/20 11:04 OF REACTION Family History Mother Cancer Surgical History H/O: hysterectomy History of intestinal surgery Hx of appendectomy S/P tonsillectomy Social History housing: shelter Smoking Status: Never smoker alcohol intake: never substance use type: does not use ROS ROS ED Constitutional Constitutional ED: Reports sweats; Denies chills or fever(s) Eyes Eyes: Denies change in vision or diplopia ENT ENT ED: Denies rhinorrhea or sore throat Cardiovascular Cardiovascular: Reports as per HPI and chest pain; Denies palpitations Respiratory/Chest Respiratory/Chest: Denies cough or dyspnea Gastrointestinal Gastrointestinal: Reports nausea; Denies abdominal pain, diarrhea or vomiting Genitourinary Genitourinary ED: Denies dysuria or hematuria Musculoskeletal Musculoskeletal: Denies back pain or neck pain Integumentary Denies abscess or rash Neurologic Neurologic: Reports vertigo and other Details: Patient states for the last 3 or 4 days when she is lying down and rolled over to the left, she gets vertiginous. No other time does she feel vertigo. When she stay still and rested gradually goes away after several minutes. She has had no headache, loss of consciousness, or vomiting with it. ; Denies headache(s), paresthesias or weakness Psychiatric Psychiatric: Denies anxiety or suicidal thoughts EXAM Physical Exam Const Vital Signs: 11/09/20 12:39 11/09/20 14:11 11/09/20 14:12 Temperature 98.1 F Temperature Source Oral Pulse Rate 72 Respiratory Rate 17 Respiratory Effort Normal Non-Labored Blood Pressure 140/67 H Blood Pressure Mean 91 Pulse Ox 97 96 Oxygen Delivery Method Room Air Room Air 11/09/20 15:42 11/09/20 16:24 Temperature Temperature Source Pulse Rate 72 67 Respiratory Rate 15 18 Respiratory Effort Blood Pressure 141/64 H Blood Pressure Mean 89 Pulse Ox 96 95 Oxygen Delivery Method Room Air Positive well nourished and well developed General Appearance ED: well developed and NAD HEENT Reports moist mucous membranes normocephalic and atraumatic Eyes PERRL and EOMs intact bilaterally Neck full ROM and supple Chest Wall inspection of chest normal Chest: Negative for tenderness Resp normal respiratory effort and clear to auscultation bilaterally Cardio regular rate and regular rhythm Cardio Narrative: Soft systolic murmur GI non-tender and non-distended Auscultation: normoactive bowel sounds Palpation: soft Back/Spine no CVA tenderness General Back: other FROM Extremity normal to inspection and no calf tenderness General Extremety ED: Negative for edema, pulses abnormal or tenderness General Extremity: Negative for edema or pulses abnormal Neuro oriented x3, CN's II-XII intact bilaterally and no sensory deficits noted Sensorium / Orientation: awake and alert Motor Exam: strength 5/5 throughout Skin no rashes or lesions noted and no wounds Heart Score History: Slightly/Non-Suspicious ECG: Normal Age: >/= 65 years Risk Factors: 1 or 2 Risk Factors Troponin: </= Normal Limit Score: 3 MDM MDM MDM Narrative Medical decision making narrative: Patient was given a GI cocktail which did improve her chest discomfort. Her initial troponin is negative at 7.2 high-sensitivity troponin, and the rest of her work-up is unremarkable. Daughter states she has had some high potassium levels lately, today she is within normal limits of 4.7. She does have an elevated BUN signifying she could use some fluids which she was given. I repeated her troponin, it returned at 8.0 for a delta of less than 1. This is adequate to be safely discharged home in context of a low HEART score. Nursing screen at the beginning of her visit indicated patient was interested in the Covid vaccine. I discussed this with her, she does not want it right now, and the daughter states if she gets it I do not want her to get anything other than the Pfizer two-step vaccine. We do not offer that in the emergency department anyway. Lab Data Attestation: I reviewed the patient's lab results. Labs: Laboratory Results - last 24 hr 11/09/20 11/09/20 11/09/20 14:02 14:02 16:20 WBC 9.9 RBC 3.82 L Hgb 11.8 L Hct 37.7 MCV 98.7 MCH 30.9 MCHC 31.3 L RDW Std Deviation 50.9 H RDW Coeff of Ramesh 13.9 Plt Count 227 MPV 9.6 Immature Gran % (Auto) 0.300 Neut % (Auto) 70.9 H Lymph % (Auto) 20.4 [place] % (Auto) 6.8 Eos % (Auto) 1.3 Baso % (Auto) 0.3 Absolute Neuts (auto) 7.0 Absolute Lymphs (auto) 2.02 Nucleated RBC % 0 Sodium 143 Potassium 4.7 Chloride 110 H Carbon Dioxide 28.0 Anion Gap 5 BUN 50 H Creatinine 0.91 Estim Creat Clear Calc 74.58 Est GFR (MDRD) Af Amer 77 Est GFR (MDRD) Non-Af 64 BUN/Creatinine Ratio 54.8 H Glucose 104 Calcium 8.5 Troponin I High Sens 7.2 8.0 Radiography Diagnostic Testing: Radiology Impression Chest X-Ray 11/09/20 14:40 IMPRESSION: Hyperinflation. The lungs are clear. Electronically Signed: Shun Lomas MD at 14:56 EDT , Service support , EKG Initial EKG: Attestation: I personally reviewed and interpreted this EKG as follows: Interpretation: Sinus Rhythm and No Acute Injury Pattern Comments: Normal EKG rate 74 Discharge Plan Triage Chief Complaint: Chest Pain ED Provider: Ben Malik Dx/Rx/DC Orders Clinical Impression: Left-sided chest pain, Episodic peripheral vertigo Instructions: ED BPV Vertigo, ED Chest Pain, Uncertain Cause Prescriptions: No Action acetaminophen 325 MG tablet 650 mg PO Q6H PRN PRN (Reason: Pain Score 1-10/Temp > 100.7 F) RF: 0 famotidine 20 MG tablet 20 mg PO BID RF: 0 gabapentin 300 mg Capsule 300 mg PO QHS 30 Days Qty: 30 RF: 0 hydrocodone-acetaminophen 5-325 mg Tablet 1 tab PO BID RF: 0 nystatin [Nyamyc] 100,000 unit/gram powder 1 applic TOPICAL BID RF: 0 duloxetine 30 mg capsule,delayed release(DR/EC) 30 mg PO DAILY RF: 0 amlodipine 5 mg tablet 5 mg PO DAILY Qty: 30 RF: 0 magnesium hydroxide [Milk of Magnesia] 400 mg/5 mL Suspension 5 ml PO DAILY PRN (Reason: Constipation) RF: 0 bisacodyl 10 mg Suppository 10 mg [place] DAILY PRN (Reason: consaitpaiton) RF: 0 Primary Care Provider: Umberto Aquino Referrals: Umberto Aquino MD [Primary Care Provider] - 3-5 Days Disposition Disposition: Home, Self Care
[2020-11-09 14:09] LABS: Absolute Lymphocyte Count 2.02 X10^3/uL (0.83-4.51); Basophil# 0.03 X10^3/uL; Basophil% 0.3 % (0-1); Eosinophil# 0.13 X10^3/uL; Eosinophils% 1.3 % (0-5); Hematocrit 37.7 % (37-47); Hemoglobin 11.8 g/dL (12.0-15.0); Lymphocyte # 2.02 X10^3/ul (0.83-4.51); Lymphocyte % 20.4 % (19-41); Mean Corp Hgb Conc 31.3 g/dL (32-36); Mean Corpuscular Hgb 30.9 pg (27.0-32.0); Mean Corpuscular Volume 98.7 fL (81-99); Mean Platelet Vol. 9.6 fl (6.2-12.0); Monocyte# 0.67 X10^3/uL; Monocyte% 6.8 % (0-10); NRBC Flagged by Analyzer 0 % (0-5); Neutrophil # 7.02 X10^3/uL (2.7-7.7); Neutrophil % 70.9 % (47-70); Platelet Count 227 K/mm3 (150-450); RBC Distribution Width CV 13.9 % (11.6-14.6); RBC Distribution Width SD 50.9 fl (35.1-43.9); Red Blood Count 3.82 M/mm3 (4.2-5.4); White Blood Count 9.9 K/mm3 (4.4-11.0)
[2020-11-09] MEDS: Mag Hydrox/Al Hydrox/Simeth 30 ML UDC PO (14:10)
[2020-11-09 14:11] VITALS: O2SAT 96
[2020-11-09 14:24] LABS: Anion Gap 5 (5-15); BUN 50 mg/dL (7-18); BUN/Creat Ratio 54.8 RATIO (10-20); Calcium,Total 8.5 mg/dL (8.5-10.1); Chloride 110 mmol/L (98-107); Creatinine, Serum 0.91 mg/dL (0.55-1.02); EST Glomerular Filtration Rate 64 mL/min (>60); Est Glom Filt Rate - Afr Amer 77 mL/min (>60); Estimated Creatinine Clearance 74.58 ml/min; Glucose 104 mg/dL (74-106); Potassium 4.7 mmol/L (3.5-5.1); Sodium Level 143 mmol/L (136-145); Troponin-I HS 7.2 pg/mL (3.0-53.7)
--- NOTE | 2020-11-09 14:40 | RAD_ITS ---
STUDY: X-RAY CHEST REASON FOR EXAM: Female, 74 years old. Chest pain TECHNIQUE: Single AP portable view of the chest. COMPARISON: None. FINDINGS: EKG electrodes are seen. Hyperinflation. Scattered calcified granulomas. There is no demonstrated pleural abnormality. There is borderline cardiomegaly. Normal mediastinum and anna marie. Normal visualized pulmonary arteries. There is atherosclerotic tortuosity of the aortic arch and descending thoracic aorta. There are diffuse degenerative changes of the visualized thoracic spine. There is degenerative osteoarthritis of the bilateral shoulders. There is no demonstrated abnormality of the visualized soft tissue structures of the upper abdomen. RAD/Chest 1 View (Portable) IMPRESSION: Hyperinflation. The lungs are clear. Electronically Signed: Shun Lomas MD at 14:56 EDT , Service support ,
[2020-11-09 15:42] VITALS: BP 141/64; PULSE 72; RESP 15; O2SAT 96
[2020-11-09 16:24] VITALS: PULSE 67; RESP 18; O2SAT 95
[2020-11-09 17:00] VITALS: RESP 16
[2020-11-09 17:12] VITALS: BP 168/68; PULSE 64; RESP 18; O2SAT 95
== END 2020-11-09 17:54 | disposition skilled nursing facility (03) ==
PROVIDERS: Emergency Provider Emergency Medicine; PCP Family Medicine
DX: R07.89 Other chest pain (principal); H81.399 Other peripheral vertigo, unspecified ear; R11.0 Nausea; I12.9 Hypertensive chronic kidney disease with stage 1 through stage 4 chronic kidney disease, or unspecified chronic kidney disease; I50.9 Heart failure, unspecified; K21.9 Gastro-esophageal reflux disease without esophagitis; F41.9 Anxiety disorder, unspecified; Z79.899 Other long term (current) drug therapy
CPT/HCPCS: 71045; 80048; 84484; 85025; 93005; 96360; 99285; J7040; J7050; A4216

== ENCOUNTER 2020-12-22 13:20 | Emergency (ER) | payer MEDICARE, MEDICAID, SELFPAY ==
[2020-12-22 13:21] VITALS: BP 154/71; PULSE 97; RESP 18; TEMP 36.9; O2SAT 95; BMI 42.2
--- NOTE | 2020-12-22 13:38 | CT_ITS ---
STUDY: CT BRAIN WITHOUT CONTRAST REASON FOR EXAM: Female, 75 years old. Severe headache, nausea and vomiting RADIATION DOSAGE (If Supplied By Facility): CTDIvol = ( 44.99 ) mGy, DLP = ( 796.11 ) mGycm TECHNIQUE: Transaxial CT imaging of the brain was performed without administration of intravenous contrast material. Individualized dose optimization techniques were used for this CT. COMPARISON: No relevant priors. FINDINGS: Normal soft tissue structures. Normal calvarium. Normal size ventricles and extra-axial spaces for the patient''s age. Normal white matter tracts of the cerebral hemispheres. Normal basal ganglia and thalami. Normal brainstem. Normal cerebellum. There is no intracranial hemorrhage. There are no findings of an acute ischemic infarction. Normal visualized paranasal sinuses. CT/Brain/Head without Contrast IMPRESSION: Chronic involutional changes of the brain. No acute hemorrhage Electronically Signed: Jamison Angel MD at 14:31 EDT , Service support ,
--- NOTE | 2020-12-22 13:38 | EKG12_ITS ---
Test Reason : CP Blood Pressure : / mmHG Vent. Rate : 093 BPM Atrial Rate : 093 BPM P-R Int : 154 ms QRS Dur : 084 ms QT Int : 318 ms P-R-T Axes : -16 -23 045 degrees QTc Int : 395 ms Sinus rhythm with Premature atrial complexes Inferior infarct , age undetermined Anterior infarct , age undetermined Abnormal ECG Confirmed by GRISEL KOHLER, ROBNI ([id number]), editor in chief YI LANCE ([id number]) on 12/23/2020 1:21:38 PM Referred By: ULICES Confirmed By:JAYE RECINOS MD
--- NOTE | 2020-12-22 13:38 | RAD_ITS ---
STUDY: X-RAY CHEST REASON FOR EXAM: Female, 75 years old. Acute substernal chest pain TECHNIQUE: Single AP portable view of the chest. COMPARISON: 11/09/2020 FINDINGS: EKG leads overlie the chest The lungs are clear and expanded. There is no demonstrated pleural abnormality. Normal size heart. Normal mediastinum and anna marie. Normal visualized pulmonary arteries. There is atherosclerotic calcification of the aortic arch with tortuosity. There are diffuse degenerative changes of the visualized thoracic spine. There is degenerative osteoarthritis of the bilateral shoulders. There is no demonstrated abnormality of the visualized soft tissue structures of the upper abdomen. RAD/Chest 1 View (Portable) IMPRESSION: No acute pulmonary process Electronically Signed: Jamison Angel MD at 14:32 EDT , Service support ,
--- NOTE | 2020-12-22 13:39 | EDS_ITS ---
HPI History of Present Illness Chief Complaint: Chest Pain Informant: patient Onset/Context/Timing Onset: Today (Within the past 1-2 hours) Activity at onset: sudden Timing: Continuous Quality: Positive for Pain (Soreness) Location: Left Chest (Left upper lateral breast area per patient and into left shoulder/arm) Current Severity: Mild Maximum Severity: Moderate Worsened By: Nothing Relieved By: Nothing (Nothing in particular) Associated Symptoms: Positive for Nausea and - (Headache see below); Negative for Vomiting, Diaphoresis, Dyspnea, Cough, Fever, Lightheadedness and Palpitati ons Narrative Narrative: Patient is senior care patient who has been having trouble ambulating and doing therapy for that. She states she sat down to eat she took one bite and suddenly felt nauseated developed a headache over her left eye which is unusual for her, and developed discomfort throughout her left arm and shoulder that also goes into my left upper lateral chest. She states now that she is here, the discomfort in her arm and shoulder is gone, discomfort in her chest is better and just barely present. She still has a headache. She rarely gets headaches when she does she usually gets them behind the right eye and has never had one like this. Is not affected her vision. No diplopia. No focal neurologic symptoms in her extremities. No loss of consciousness. No recent fall or injury. No recent illness. [facility] Medical History Anxiety CKD (chronic kidney disease) Diverticulosis GERD (gastroesophageal reflux disease) Hypertension Murmur Home Medications acetaminophen 650 mg PO Q6H PRN PRN tablet 07/13/20 [Rx Last Taken Unknown] famotidine 20 mg PO BID 07/13/20 [History Last Taken Unknown] gabapentin 300 mg PO QHS 30 Days #30 cap 07/28/20 [Rx Last Taken Unknown] amlodipine 5 mg PO DAILY #30 tab 10/15/20 [Rx Last Taken Unknown] duloxetine 30 mg PO DAILY 10/15/20 [History Last Taken Unknown] hydrocodone-acetaminophen 1 tab PO BID 10/15/20 [History Last Taken Unknown] nystatin [Nyamyc] 1 applic TOPICAL BID 10/15/20 [History Last Taken Unknown] bisacodyl 10 mg OK DAILY PRN 10/16/20 [History Last Taken Unknown] magnesium hydroxide [Milk of Magnesia] 5 ml PO DAILY PRN 10/16/20 [History Last Taken Unknown] Allergy/AdvReac Type Severity Reaction Status Date / Time Iodinated Contrast Media Allergy PT UNSURE Verified 12/22/20 13:25 [CONTRASTS] OF REACTION simvastatin Allergy PT UNSURE Verified 12/22/20 13:25 OF REACTION valdecoxib Allergy PT UNSURE Verified 12/22/20 13:25 OF REACTION DIDOFENAC Allergy PT UNSURE Uncoded 12/22/20 13:25 OF REACTION Family History Mother Cancer Surgical History H/O: hysterectomy History of intestinal surgery Hx of appendectomy S/P tonsillectomy Social History housing: senior care Smoking Status: Never smoker alcohol intake: never substance use type: does not use ROS ROS ED Constitutional Constitutional ED: Denies chills or fever(s) Eyes Eyes: Denies change in vision or diplopia ENT ENT ED: Denies rhinorrhea or sore throat Cardiovascular Cardiovascular: Reports chest pain; Denies palpitations Respiratory/Chest Respiratory/Chest: Denies cough or dyspnea Gastrointestinal Gastrointestinal: Reports nausea; Denies abdominal pain, diarrhea or vomiting Genitourinary Genitourinary ED: Denies dysuria or hematuria Musculoskeletal Musculoskeletal: Reports extremity pain; Denies back pain or neck pain Integumentary Reports wounds; Denies abscess or rash Neurologic Neurologic: Reports headache(s); Denies paresthesias or weakness Psychiatric Psychiatric: Denies anxiety or suicidal thoughts EXAM Physical Exam Const Vital Signs: 12/22/20 13:21 12/22/20 13:28 12/22/20 13:51 Temperature 98.4 F Temperature Source Oral Pulse Rate 97 Respiratory Rate 18 Respiratory Effort Normal Non-Labored Blood Pressure 154/71 H Blood Pressure Mean 98 Pulse Ox 95 97 Oxygen Delivery Method Room Air Room Air 12/22/20 14:42 12/22/20 15:02 12/22/20 16:30 Temperature Temperature Source Pulse Rate 74 87 90 Respiratory Rate 18 12 16 Respiratory Effort Blood Pressure 160/69 H 157/74 H 172/82 H Blood Pressure Mean 99 101 112 Pulse Ox 97 99 99 Oxygen Delivery Method Room Air Room Air Room Air Positive well nourished and well developed General Appearance ED: well developed and NAD HEENT Reports moist mucous membranes normocephalic and atraumatic Eyes PERRL and EOMs intact bilaterally Neck full ROM and supple Resp normal respiratory effort and clear to auscultation bilaterally Cardio regular rate, regular rhythm and no murmurs GI non-tender and non-distended Auscultation: normoactive bowel sounds Palpation: soft Back/Spine no CVA tenderness General Back: other FROM Extremity normal to inspection General Extremety ED: Negative for edema, pulses abnormal or tenderness General Extremity: Negative for edema or pulses abnormal Neuro oriented x3, CN's II-XII intact bilaterally and no sensory deficits noted Sensorium / Orientation: awake and alert Motor Exam: strength 5/5 throughout Skin no rashes or lesions noted Skin Narrative: Wounds wrapped in gauze right foot/ankle Heart Score History: Moderately Suspicious ECG: Normal Age: >/= 65 years Risk Factors: 1 or 2 Risk Factors Troponin: </= Normal Limit Score: 4 MDM MDM MDM Narrative Medical decision making narrative: Patient has an unchanged EKG without signs of acute injury. Her troponin is normal. She is prerenal and was given some IV fluids, as well as a dose of Reglan. Her headache is resolved afterwards, and her chest and arm discomfort are also resolved without any other treatments. She was offered something to eat and she prefers not to right now. Delta troponin is obtained, it is 8 as well for a delta of 0, plan will be to send her back to senior care. Lab Data Attestation: I reviewed the patient's lab results. Labs: Laboratory Results - last 24 hr 12/22/20 12/22/20 12/22/20 13:25 13:25 16:00 WBC 8.3 RBC 4.39 Hgb 13.7 Hct 43.1 MCV 98.2 MCH 31.2 MCHC 31.8 L RDW Std Deviation 45.1 H RDW Coeff of Ramesh 12.4 Plt Count 271 MPV 9.8 Immature Gran % (Auto) 0.400 Neut % (Auto) 54.7 Lymph % (Auto) 35.7 [place] % (Auto) 7.0 Eos % (Auto) 1.7 Baso % (Auto) 0.5 Absolute Neuts (auto) 4.5 Absolute Lymphs (auto) 2.96 Nucleated RBC % 0 Sodium 140 Potassium 4.4 Chloride 108 H Carbon Dioxide 28.0 Anion Gap 4 L BUN 47 H Creatinine 0.90 Estim Creat Clear Calc 73.93 Est GFR (MDRD) Af Amer 79 Est GFR (MDRD) Non-Af 65 BUN/Creatinine Ratio 52.2 H Glucose 96 Calcium 9.5 Troponin I High Sens 8 8 Radiography Diagnostic Testing: Radiology Impression Brain CT 12/22/20 13:38 IMPRESSION: Chronic involutional changes of the brain. No acute hemorrhage Electronically Signed: Jamison Angel MD at 14:31 EDT , Service support , Chest X-Ray 12/22/20 13:38 IMPRESSION: No acute pulmonary process Electronically Signed: Jamison Angel MD at 14:32 EDT , Service support , EKG Initial EKG: Attestation: I personally reviewed and interpreted this EKG as follows: Interpretation: Sinus Rhythm and No Acute Injury Pattern Comments: PAC. Left axis. Inferior Q waves. Prior EKG tracings: available for review Prior: Unchanged Discharge Plan Triage Chief Complaint: Chest Pain ED Provider: Ben Malik Dx/Rx/DC Orders Clinical Impression: Left-sided chest pain, Cephalgia Instructions: ED Chest Pain, Uncertain Cause Prescriptions: No Action acetaminophen 325 MG tablet 650 mg PO Q6H PRN PRN (Reason: Pain Score 1-10/Temp > 100.7 F) RF: 0 famotidine 20 MG tablet 20 mg PO BID RF: 0 gabapentin 300 mg Capsule 300 mg PO QHS 30 Days Qty: 30 RF: 0 hydrocodone-acetaminophen 5-325 mg Tablet 1 tab PO BID RF: 0 nystatin [Nyamyc] 100,000 unit/gram powder 1 applic TOPICAL BID RF: 0 duloxetine 30 mg capsule,delayed release(DR/EC) 30 mg PO DAILY RF: 0 amlodipine 5 mg tablet 5 mg PO DAILY Qty: 30 RF: 0 magnesium hydroxide [Milk of Magnesia] 400 mg/5 mL Suspension 5 ml PO DAILY PRN (Reason: Constipation) RF: 0 bisacodyl 10 mg Suppository 10 mg OK DAILY PRN (Reason: consaitpaiton) RF: 0 Primary Care Provider: Umberto Aquino Referrals: Umberto Aquino MD [Primary Care Provider] - 3-5 Days Disposition Disposition: Home, Self Care
[2020-12-22 13:51] VITALS: O2SAT 97
[2020-12-22 13:52] LABS: Absolute Lymphocyte Count 2.96 X10^3/uL (0.83-4.51); Absolute Neutrophil Count 4.5 X10^3/uL (2.0-7.7); Basophil# 0.04 X10^3/uL; Basophil% 0.5 % (0-1); Eosinophil# 0.14 X10^3/uL; Eosinophils% 1.7 % (0-5); Hematocrit 43.1 % (37-47); Hemoglobin 13.7 g/dL (12.0-15.0); Lymphocyte # 2.96 X10^3/ul (0.83-4.51); Lymphocyte % 35.7 % (19-41); Mean Corp Hgb Conc 31.8 g/dL (32-36); Mean Corpuscular Hgb 31.2 pg (27.0-32.0); Mean Corpuscular Volume 98.2 fL (81-99); Mean Platelet Vol. 9.8 fl (6.2-12.0); Monocyte# 0.58 X10^3/uL; NRBC Flagged by Analyzer 0 % (0-5); Neutrophil # 4.54 X10^3/uL (2.7-7.7); Neutrophil % 54.7 % (47-70); Platelet Count 271 K/mm3 (150-450); RBC Distribution Width CV 12.4 % (11.6-14.6); RBC Distribution Width SD 45.1 fl (35.1-43.9); Red Blood Count 4.39 M/mm3 (4.2-5.4); White Blood Count 8.3 K/mm3 (4.4-11.0)
[2020-12-22] MEDS: Metoclopramide 10 MG/2 ML Vial 5 MG IV (14:02)
[2020-12-22 14:07] LABS: Anion Gap 4 (5-15); BUN 47 mg/dL (7-18); BUN/Creat Ratio 52.2 RATIO (10-20); Calcium,Total 9.5 mg/dL (8.5-10.1); Chloride 108 mmol/L (98-107); EST Glomerular Filtration Rate 65 mL/min (>60); Est Glom Filt Rate - Afr Amer 79 mL/min (>60); Estimated Creatinine Clearance 73.93 ml/min; Glucose 96 mg/dL (74-106); Potassium 4.4 mmol/L (3.5-5.1); Sodium Level 140 mmol/L (136-145); Troponin-I HS 8 pg/mL (3.0-54.0)
[2020-12-22 14:42] VITALS: BP 160/69; PULSE 74; RESP 18; O2SAT 97
[2020-12-22 15:02] VITALS: BP 157/74; PULSE 87; RESP 12; O2SAT 99
[2020-12-22 16:30] VITALS: BP 172/82; PULSE 90; RESP 16; O2SAT 99
[2020-12-22 16:38] LABS: Troponin-I HS 8 pg/mL (3.0-54.0)
[2020-12-22 17:29] VITALS: BP 147/68; PULSE 82; RESP 17; O2SAT 98
== END 2020-12-22 19:17 | disposition home or self-care (01) ==
PROVIDERS: Emergency Provider Emergency Medicine; PCP Family Medicine
DX: R07.9 Chest pain, unspecified (principal); R51.9 Headache, unspecified; I12.9 Hypertensive chronic kidney disease with stage 1 through stage 4 chronic kidney disease, or unspecified chronic kidney disease; N18.9 Chronic kidney disease, unspecified; R11.0 Nausea; K21.9 Gastro-esophageal reflux disease without esophagitis; F41.9 Anxiety disorder, unspecified; Z79.899 Other long term (current) drug therapy
CPT/HCPCS: 70450; 71045; 80048; 84484; 85025; 93005; 96361; 96374; 99284; J7040; A4216

== ENCOUNTER → 2024-01-17 | Outpatient (REF) | payer MEDICARE, MEDICAID, SELFPAY ==
[2024-01-17 07:51] LABS: Hematocrit 38.2 % (37-47); Hemoglobin 12.3 g/dL (12.0-15.0); Mean Corp Hgb Conc 32.2 g/dL (32-36); Mean Corpuscular Hgb 30.8 pg (27.0-32.0); Mean Corpuscular Volume 95.5 fL (81-99); Mean Platelet Vol. 10.3 fl (6.2-12.0); Platelet Count 262 K/mm3 (150-450); RBC Distribution Width CV 13.4 % (11.6-14.6); RBC Distribution Width SD 47.7 fl (35.1-43.9)
[2024-01-17 08:10] LABS: Anion Gap 6 (5-15); BUN 30 mg/dL (7-18); BUN/Creat Ratio 26.3 RATIO (10-20); Calcium,Total 9.1 mg/dL (8.5-10.1); Chloride 108 mmol/L (98-107); Creatinine, Serum 1.14 mg/dL (0.55-1.02); EST Glomerular Filtration Rate 49 mL/min (>60); Est Glom Filt Rate - Afr Amer 59 mL/min (>60); Glucose 195 mg/dL (74-106); Potassium 3.7 mmol/L (3.5-5.1); Sodium Level 143 mmol/L (136-145)
[2024-01-17 08:26] LABS: Hemoglobin A1c 7.3 % (3.8-5.6)
[2024-01-17 10:27] LABS: Vitamin D,25 Hydroxy 36.5 ng/mL
== END ==
LOC: OLS.SW 05:00
PROVIDERS: PCP Family Medicine; Visit Provider Family Medicine
DX: E11.9 Type 2 diabetes mellitus without complications (principal); I10 Essential (primary) hypertension
CPT/HCPCS: 36415; 80048; 82306; 83036; 85027

== ENCOUNTER → 2024-01-23 | Outpatient (REF) | payer MEDICARE, MEDICAID, SELFPAY ==
[2024-01-24 09:14] LABS: Color, Urine Yellow (Yellow); Glucose, Dipstick Normal (Normal); Ketone-Dipstick Negative (Negative); Leukocyte Esterase-Dipstick 500 /ul (Negative); Nitrite-Dipstick Positive (Negative); Occult Blood-Urine Negative /ul (Negative); Protein-Dipstick 15 mg/dl (Negative); Urine Bilirubin Dipstick Negative (Negative); Urine Clarity Clear (Clear); Urine Urobilinogen Normal (Normal)
== END ==
LOC: OLS.SW 23:00
PROVIDERS: PCP Family Medicine; Visit Provider Internal Medicine
DX: E11.9 Type 2 diabetes mellitus without complications (principal); R39.9 Unspecified symptoms and signs involving the genitourinary system
CPT/HCPCS: 81002; 87086; 87088; 87186

== ENCOUNTER → 2024-02-05 | Outpatient (REF) | payer MEDICARE, MEDICAID, SELFPAY ==
[2024-02-05 07:34] LABS: Anion Gap 6 (5-15); BUN 30 mg/dL (7-18); BUN/Creat Ratio 22.9 RATIO (10-20); Calcium,Total 9.2 mg/dL (8.5-10.1); Chloride 102 mmol/L (98-107); Cholesterol 231 mg/dL (200); Creatinine, Serum 1.31 mg/dL (0.55-1.02); EST Glomerular Filtration Rate 42 mL/min (>60); Est Glom Filt Rate - Afr Amer 51 mL/min (>60); Glucose 168 mg/dL (74-106); High Density Lipoprotein 41 mg/dL; Sodium Level 139 mmol/L (136-145); Triglycerides 378 mg/dL; Very Low Density Lipoprotein 76 mg/dL (5-40)
[2024-02-05 09:21] LABS: Hemoglobin A1c 7.5 % (3.8-5.6)
== END ==
LOC: OLS.SW 05:00
PROVIDERS: PCP Family Medicine; Visit Provider Internal Medicine
DX: E11.22 Type 2 diabetes mellitus with diabetic chronic kidney disease (principal); N18.9 Chronic kidney disease, unspecified
CPT/HCPCS: 36415; 80048; 80061; 83036

== ENCOUNTER → 2024-03-30 | Outpatient (REF) | payer MEDICARE, MEDICAID, SELFPAY ==
[2024-03-30 08:59] LABS: Red Blood Cells-Urine 0 SEEN /hpf (0-5); White Blood Cells 0 SEEN /hpf (0-5)
[2024-03-30 09:29] LABS: Absolute Lymphocyte Count 2.13 X10^3/uL (0.83-4.51); Absolute Neutrophil Count 4.5 X10^3/uL (2.0-7.7); Basophil# 0.05 X10^3/uL; Basophil% 0.7 % (0-1); Eosinophil# 0.29 X10^3/uL; Eosinophils% 3.9 % (0-5); Hematocrit 40.1 % (37-47); Hemoglobin 12.6 g/dL (12.0-15.0); Lymphocyte # 2.13 X10^3/ul (0.83-4.51); Lymphocyte % 28.4 % (19-41); Mean Corp Hgb Conc 31.4 g/dL (32-36); Mean Corpuscular Hgb 29.7 pg (27.0-32.0); Mean Corpuscular Volume 94.6 fL (81-99); Mean Platelet Vol. 10.6 fl (6.2-12.0); Monocyte# 0.52 X10^3/uL; Monocyte% 6.9 % (0-10); NRBC Flagged by Analyzer 0 % (0-5); Neutrophil # 4.45 X10^3/uL (2.7-7.7); Neutrophil % 59.4 % (47-70); Platelet Count 307 K/mm3 (150-450); RBC Distribution Width CV 13.5 % (11.6-14.6); RBC Distribution Width SD 46.7 fl (35.1-43.9); Red Blood Count 4.24 M/mm3 (4.2-5.4); White Blood Count 7.5 K/mm3 (4.4-11.0)
[2024-03-30 09:41] LABS: Anion Gap 8 (5-15); BUN 29 mg/dL (7-18); BUN/Creat Ratio 26.6 RATIO (10-20); Calcium,Total 9.8 mg/dL (8.5-10.1); Chloride 99 mmol/L (98-107); Creatinine, Serum 1.09 mg/dL (0.55-1.02); EST Glomerular Filtration Rate 52 mL/min (>60); Est Glom Filt Rate - Afr Amer 63 mL/min (>60); Glucose 98 mg/dL (74-106); Potassium 4.1 mmol/L (3.5-5.1); Sodium Level 138 mmol/L (136-145)
[2024-03-30 09:46] LABS: Color, Urine Yellow (Yellow); Glucose, Dipstick Normal (Normal); Ketone-Dipstick Negative (Negative); Leukocyte Esterase-Dipstick 500 /ul (Negative); Nitrite-Dipstick Negative (Negative); Occult Blood-Urine 10 /ul (Negative); Protein-Dipstick 30 mg/dl (Negative); Urine Bilirubin Dipstick Negative (Negative); Urine Clarity Turbid (Clear); Urine Urobilinogen Normal (Normal)
[2024-03-30 10:15] LABS: Amorphous Sediment 1+; Bacteria 3+ /hpf (None Seen); Mucous, Urine 1+ /hpf (<or=2+); Squamous Epithelial Cells - UA 0-5 SEEN /hpf (5-10)
== END ==
LOC: OLS.SW 05:00
PROVIDERS: PCP Family Medicine; Visit Provider Internal Medicine
DX: R41.82 Altered mental status, unspecified (principal)
CPT/HCPCS: 36415; 80048; 81001; 85025; 87086; 87088

== ENCOUNTER → 2024-04-16 | Outpatient (REF) | payer MEDICARE, MEDICAID, SELFPAY ==
[2024-04-16 08:03] LABS: Hemoglobin 11.8 g/dL (12.0-15.0); Mean Corp Hgb Conc 31.1 g/dL (32-36); Mean Corpuscular Hgb 29.9 pg (27.0-32.0); Mean Corpuscular Volume 96.4 fL (81-99); Mean Platelet Vol. 10.5 fl (6.2-12.0); Platelet Count 293 K/mm3 (150-450); RBC Distribution Width CV 13.8 % (11.6-14.6); RBC Distribution Width SD 48.6 fl (35.1-43.9); Red Blood Count 3.94 M/mm3 (4.2-5.4)
[2024-04-16 08:27] LABS: Anion Gap 6 (5-15); BUN 40 mg/dL (7-18); Calcium,Total 9.1 mg/dL (8.5-10.1); Chloride 108 mmol/L (98-107); Creatinine, Serum 1.25 mg/dL (0.55-1.02); EST Glomerular Filtration Rate 44 mL/min (>60); Est Glom Filt Rate - Afr Amer 53 mL/min (>60); Glucose 132 mg/dL (74-106); Potassium 4.3 mmol/L (3.5-5.1); Sodium Level 145 mmol/L (136-145)
[2024-04-16 09:19] LABS: Hemoglobin A1c 6.3 % (3.8-5.6)
[2024-04-16 09:23] LABS: Vitamin D,25 Hydroxy 40.7 ng/mL
== END ==
LOC: OLS.SW 05:00
PROVIDERS: PCP Family Medicine; Visit Provider Internal Medicine
DX: E11.22 Type 2 diabetes mellitus with diabetic chronic kidney disease (principal); N18.9 Chronic kidney disease, unspecified; E55.9 Vitamin D deficiency, unspecified
CPT/HCPCS: 36415; 80048; 82306; 83036; 85027

== ENCOUNTER → 2024-07-15 05:00 | Outpatient (REF) | payer MEDICARE, MEDICAID, SELFPAY ==
[2024-07-15 07:59] LABS: Hematocrit 36.2 % (37-47); Hemoglobin 11.9 g/dL (12.0-15.0); Mean Corp Hgb Conc 32.9 g/dL (32-36); Mean Corpuscular Hgb 30.5 pg (27.0-32.0); Mean Corpuscular Volume 92.8 fL (81-99); Mean Platelet Vol. 10.6 fl (6.2-12.0); Platelet Count 257 K/mm3 (150-450); RBC Distribution Width CV 14.6 % (11.6-14.6); RBC Distribution Width SD 50.3 fl (35.1-43.9); White Blood Count 7.1 K/mm3 (4.4-11.0)
[2024-07-15 08:17] LABS: Hemoglobin A1c 5.5 % (<=5.6)
[2024-07-15 08:33] LABS: Anion Gap 13 (5-15); BUN 23 mg/dL (4-19); BUN/Creat Ratio 23.2 RATIO (10-20); Calcium,Total 9.2 mg/dL (7.6-11.0); Carbon Dioxide 28.1 mmol/L (21.0-32.0); Chloride 99 mmol/L (98-108); EST Glomerular Filtration Rate 58 (>60); Glucose 86 mg/dL (70-99); Potassium 3.7 mmol/L (3.3-5.1); Sodium Level 140 mmol/L (133-145)
[2024-07-15 08:41] LABS: Vitamin D,25 Hydroxy 37.3 ng/mL (30-100)
== END ==
LOC: OLS.SW 05:00
PROVIDERS: PCP Family Medicine; Visit Provider Family Medicine
DX: I12.9 Hypertensive chronic kidney disease with stage 1 through stage 4 chronic kidney disease, or unspecified chronic kidney disease (principal); I73.9 Peripheral vascular disease, unspecified; G62.9 Polyneuropathy, unspecified; N18.9 Chronic kidney disease, unspecified
CPT/HCPCS: 36415; 80048; 82306; 83036; 85027

== ENCOUNTER → 2024-07-30 | Outpatient (REF) | payer MEDICARE, MEDICAID, SELFPAY ==
[2024-07-30 08:56] LABS: Cholesterol 224 mg/dL (<=200); High Density Lipoprotein 41 mg/dL; Low Density Lipoprotein Calc. 142 mg/dL; Triglycerides 207 mg/dL; Very Low Density Lipoprotein 41 mg/dL (5-40); cholesterol:hdl ratio screen 5.49
== END ==
LOC: OLS.SW 05:00
PROVIDERS: PCP Family Medicine; Visit Provider Internal Medicine
DX: I12.9 Hypertensive chronic kidney disease with stage 1 through stage 4 chronic kidney disease, or unspecified chronic kidney disease (principal); N18.9 Chronic kidney disease, unspecified
CPT/HCPCS: 36415; 80061

== ENCOUNTER → 2024-10-13 | Outpatient (REF) | payer MEDICARE, MEDICAID, SELFPAY ==
--- OUTSIDE RECORDS SUMMARY | 2024-10-13 04:26 | XMS RPT_ITS | CCD ---
Author Organization [facility] Care Team Providers Care Calciner Operator Name Role Phone YOVANY, ROSEMARIE E Unavailable Unavailable YOVANY, ROSEMARIE E Unavailable Unavailable MESA, FREMIO Unavailable Unavailable YOVANY, ROSEMARIE E Unavailable Unavailable ELISABET KATE Unavailable Unavailable TERESE MANNING Unavailable Unavailable Rod Bran Primary Care Provider Dr. Umberto Aquino MD Primary Care Provider [phone] Umberto Ramos Attending Provider Unavailable Dr. Amalia Ramos MD Attending Provider Unavaila Amalia Ramirez Attending Unavailable Umberto Aquino Primary Care Unavailable Umberto Ramos Attending Unavailable Umberto Aquino Primary Care Unavailable Amalia Ocampo Attending Unavailable Umberto Aquino Primary Care Unavailable Umberto Aquino Primary Care Unavailable Amalia Ocampo Attending Unavailable Umberto Aquino Primary Care Unavailable Amalia Ocampo Attending Unavailable Umberto Aquino Primary Care Unavailable Amalia Ocampo Attending Unavailable Umberto Aquino Primary Care Unavailable Umberto Ramos Attending Unavailable Allergies Allergy Classification Reported Allergen(s) Allergy Type Date of Onset Reaction(s) Facility (1 source) Diclofenac Drug Allergy 1 Intolerance, Unknown [facility] (1 source) Lactose Drug Allergy 8 [facility] (2 sources) Simvastatin Drug Allergy 8 Intolerance [facility] (2 sources) valdecoxib Drug Allergy 8 Intolerance [facility] (1 source) Diclofenac Drug Allergy 2 PT UNSURE OF REACTION [facility] (1 source) Triiodobenzoic Acids Allergy to substance 1 PT UNSURE OF REACTION [facility] (1 source) Diclofenac Drug Allergy 2 [facility] Repository (1 source) Simvastatin Drug Allergy 1 [facility] (1 source) valdecoxib Drug Allergy 1 [facility] (1 source) Iodinated Contrast Media Drug allergy (disorder) 1 [facility] Repository Medications Current Medications Medication Drug Class(es) Dates Sig (Normalized) Sig (Original) acetaminophen 325 mg oral tablet (2 sources) Start: 07-13-2020 Acetaminophen 325 MG tablet Active 650 mg PO EVERY 6 HOURS NEEDED as needed for Pain Score 1-10/Temp > 100.7 F July 13, 2020 12:00am ACETAMINOPHEN (T YLENOL 8 HOUR ORAL) Take by mouth. 0 Active Comment on above: Take by mouth. acetaminophen 325 mg / HYDROcodone bitartrate 5 mg oral tablet (1 source) Opioid Agonist Start: 2020 Hydrocodone-Acetami nophen 5-325 mg Tablet Active 1 {tbl} PO TWICE A DAY October 15, 2020 12:00am amLODIPine 5 mg oral tablet (1 source) Dihydropyridine Calcium Channel Lulú Start: 2020 take 1 tablet by mouth once daily Amlodipine 5 mg tablet Active 5 mg PO DAILY October 15, 2020 12:00am bisacodyl 10 mg rectal suppository (1 source) Stimulant Laxative Start: 2020 Bisacodyl 10 mg Suppository Active 10 mg RC DAILY as needed for consaitpaiton October 16, 2020 12:00am DULoxetine 30 mg delayed release oral capsule (1 source) Serotonin and Norepinephrine Reuptake Inhibitor Start: 2020 take 1 capsule by mouth once daily Duloxetine 30 mg capsule,delayed release(DR/EC) Active 30 mg PO DAILY October 15, 2020 12:00am sprinkle famotidine 20 mg oral tablet (2 sources) Histamine-2 Receptor Antagonist Start: 2020 End: 2020 take 1 tablet by mouth twice daily Famotidine 20 MG tablet Active 20 mg PO TWICE A DAY July 13, 2020 6:37pm gabapentin 300 mg oral capsule (1 source) Anti-epileptic Agent Start: 2020 take 1 capsule by mouth at bedtime Gabapentin 300 mg Capsule Active 300 mg PO AT BEDTIME 30 30 July 28, 2020 12:00am magnesium hydroxide 80 mg/ml oral suspension (1 source) Start: 2020 take 1 mL by mouth once daily as needed for constipation Magnesium Hydroxide (Milk Of Magnesia) 400 mg/5 mL Suspension Active 5 mL PO DAILY as needed for Constipation October 16, 2020 12:00am nystatin 100 unt/mg topical powder (1 source) Polyene Antifungal Start: 2020 Nystatin (Nyamyc) 100,000 unit/gram powder Active 1 NMA TOPICAL TWICE A DAY October 15, 2020 12:00am Completed/Discontinued Medications Medication Drug Class(es) Dates Sig (Normalized) Sig (Original) acetaminophen 325 mg / oxyCODONE hydrochloride 2.5 mg oral tablet (1 source) Opioid Agonist Start: 02-07-2011 take 1 tablet by mouth every four hours as needed Oxycodone-Acetamino phen (PERCOCET) 2.5-325 mg ORAL per tablet Take 1 tablet by mouth every 4 hours as needed for Pain. 0 02/07/2011 Active Comment on above: Take 1 tablet by doug th every 4 hours as needed for Pain. cephalexin 500 mg oral capsule (2 sources) Cephalosporin Antibacterial Start: 07-13-2020 End: 07-28-2020 take 1 capsule by mouth every eight hours Cephalexin 500 MG capsule Discontinued 500 mg PO EVERY 8 HOURS July 13, 2020 6:37pm July 28, 2020 8:08am lisinopril 20 mg oral tablet (2 sources) Angiotensin Converting Enzyme Inhibitor Start: 07-13-2020 End: 10-15-2020 take 1 tablet by mouth once daily Lisinopril 20 MG tablet Discontinued 20 mg PO DAILY July 13, 2020 6:37pm October 15, 2020 12:30pm x 3 days meloxicam 15 mg oral tablet (1 source) Nonsteroidal Anti-inflammatory Drug Start: 01-19-2015 take 1 tablet by mouth once daily meloxicam (MOBIC) 15 mg tablet Take 1 tablet by mouth once daily. 0 01/19/2015 Active Comment on above: Take 1 tablet by doug th once daily. vitamin b12 1 mg oral tablet (1 source) Vitamin B12 Start: 01-19-2015 take 1 tablet by mouth once daily cyanocobalamin (VITAMIN B-12) 1,000 mcg tab Take 1 tablet by mouth once daily. 0 01/19/2015 Active Comment on above: Take 1 tablet by doug th once daily. Problems Active Problems Problem Classification Problem Date Documented Da te Episodic/Chronic Cataract (1 source) Bilateral pseudophakia; Translations: [Presence of intraocular lens] Onset: 5 03-16-2015 Chronic Chronic kidney disease (1 source) Chronic kidney disease, unspecified; Translations: [Chronic kidney disease, unspecified] Onset: 4 Chronic Chronic ulcer of skin (2 sources) Pressure ulcer of sacral region; Translations: [Pressure ulcer of sacral region, unspecified stage] 07-16-2020 Chronic Conditions associated with dizziness or vertigo (1 source) Peripheral vertigo; Translations: [Other peripheral vertigo, unspecified ear] 11-09-2020 Episodic Deficiency and other anemia (1 source) Iron deficiency anemia secondary to blood loss (chronic); Translations: [Iron deficiency anemia secondary to blood loss (chronic)] Onset: 5 Chronic Diabetes mellitus without complication (1 source) Type 2 diabetes mellitus without complications; Translations: [Type 2 diabetes mellitus without complications] Onset: 5 Chronic Essential hypertension (1 source) Essential (primary) hypertension; Translations: [Essential (primary) hypertension] Onset: 4 Chronic Fluid and electrolyte disorders (2 sources) Hyperkalemia; Translations: [Hyperkalemia] 10-16-2020 Episodic Gastrointestinal hemorrhage (1 source) Lower gastrointestinal hemorrhage; Translations: [Gastrointestinal hemorrhage, unspecified] 07-16-2020 Episodic Headache; including migraine (1 source) Headache; Translations: [Headache] 12-30-2020 Episodic Hypertension with complications and secondary hypertension (2 sources) Hypertensive chronic kidney disease with stage 1 through stage 4 chronic kidney disease, or unspecified chronic kidney disease; Translations: [Hypertensive chronic kidney disease with stage 1 through stage 4 chronic kidney disease, or unspecified chronic kidney disease] Onset: 5 Chronic Malaise and fatigue (1 source) Asthenia; Translations: [Other malaise] 07-16-2020 Episodic Nonspecific chest pain (1 source) Left sided chest pain; Translations: [Chest pain, unspecified] 11-09-2020 Episodic Nutritional deficiencies (1 source) Vitamin D deficiency, unspecified; Translations: [Vitamin D deficiency, unspecified] Onset: 5 Chronic Open wounds of head; neck; and trunk (1 source) Injury of buttock; Translations: [Unspecified open wound of right buttock, initial encounter] 07-09-2020 Episodic Osteoarthritis (2 sources) Osteoarthritis; Translations: [Osteoarthrosis, unspecified whether generalized or localized, lower leg] Onset: 1 02-07-2011 Chronic Other circulatory disease (1 source) Elevated blood-pressure reading without diagnosis of hypertension; Translations: [Elevated blood-pressure reading, without diagnosis of hypertension] 07-09-2020 Episodic Other nervous system disorders (1 source) Unable to walk; Translations: [Difficulty in walking, not elsewhere classified] 07-09-2020 Chronic Other nervous system disorders (1 source) Polyneuropathy, unspecified; Translations: [Polyneuropathy, unspecified] Onset: 5 Chronic Other nutritional; endocrine; and metabolic disorders (1 source) Obese class I; Translations: [Class 1 obesity] 07-09-2020 Chronic Other nutritional; endocrine; and metabolic disorders (1 source) Body mass index 30+ - obesity; Translations: [Body mass index (BMI) 37.0-37.9, adult] 07-16-2020 Chronic Other nutritional; endocrine; and metabolic disorders (1 source) Failure to thrive 07-16-2020 Episodic Other nutritional; endocrine; and metabolic disorders (1 source) Adult failure to thrive syndrome; Translations: [Adult failure to thrive] 07-09-2020 Episodic Peripheral and visceral atherosclerosis (2 sources) Peripheral vascular disease; Translations: [Peripheral vascular disease, unspecified] Onset: 5 07-09-2020 Chronic Spondylosis; intervertebral disc disorders; other back problems (1 source) Lumbosacral spondylosis without myelopathy; Translations: [Spondylosis without myelopathy or radiculopathy, lumbosacral region] Onset: 9 09-07-2008 Chronic Urinary tract infections (1 source) Urinary tract infectious disease; Translations: [Urinary tract infection, site not specified] 07-16-2020 Episodic Past or Other Problems Problem Classification Problem Date Documented Da te Episodic/Chronic Other non-traumatic joint disorders (2 sources) Pain in right knee; Translations: [Pain in left knee] Onset: 01-10-2017 Episodic Residual codes; unclassified (1 source) Disorientation, unspecified; Translations: [Disorientation, unspecified] Onset: 04-27-2024 Episodic Spondylosis; intervertebral disc disorders; other back problems (2 sources) Backache; Translations: [Other specified dorsopathies, site unspecified] Onset: 09-07-2008 09-07-2008 Episodic Results Test Name Value Interpretation Reference Range Facility Calculated very low density lipoprotein (VLDL) cholesterol measurementOrdered By: Amalia Ramos on 07-30-2024 Calculated very low density lipoprotein (VLDL) cholesterol measurement 41 mg/dL High 5-40 [facility] LDL calc ser/plasOrdered By: Amalia Ramos on 07-30-2024 Cholesterol in LDL [Mass/Vol] 142 mg/dL [facility] Comment on above: Tpcjdmpmsu=734-590 m g/dL & Higher Cmhq=720 mg/dL or greater Lipid Profileon 07-30-2024 CHOL:HDL 5.49 Normal [facility] Comment on above: Order Comment: CLEAN CATCH Performed By: #### L 400.0001, L500.2500, L100.0100, M100.2200 #### [facility] [address] [facility] [place], [address] Cholesterol [Mass/Vol] 224 mg/dL High <=200 [facility] [place] Comment on above: Order Comment: CLEAN CATCH Result Comment: Chol esterol level, Desirable <200 mg/dL Borderline high cholesterol 200-239 mg/dL High cholesterol >=240 mg/dL Recommendations of the NCEP Adult Treatment Panel for the following risk-cutoff thresholds for the [place] population. Performed By: #### L 400.0001, L500.2500, L100.0100, M100.2200 #### [facility] [address] [place], [address] Cholesterol in HDL [Mass/Vol] 41 mg/dL Normal [facility] Comment on above: Order Comment: CLEAN CATCH Result Comment: Nina onal Cholesterol Education Program (NCEP) guidelines: <40 mg/dL: Low HDL-cholesterol (major risk factor for CHD) >= 60 mg/dL: High HDL-cholesterol (negative risk factor for CHD) HDL-cholesterol is affected by a number of factors, e.g. smoking, exercise, hormones, sex and age. Performed By: #### L 400.0001, L500.2500, L100.0100, M100.2200 #### [facility] [address] [place], [address] Cholesterol in LDL [Mass/Vol] 142 mg/dL Normal [facility] Comment on above: Order Comment: CLEAN CATCH Result Comment: Bord cwkjwo=295-726 mg/dL Higher Ubmk=569 mg/dL or greater Performed By: #### L 400.0001, L500.2500, L100.0100, M100.2200 #### [facility] [address] [place], [address] Cholesterol in VLDL [Mass/Vol] 41 mg/dL High 5-40 [facility] Comment on above: Order Comment: CLEAN CATCH Performed By: #### L 400.0001, L500.2500, L100.0100, M100.2200 #### [facility] [address] [place], [address] Triglyceride [Mass/Vol] 207 mg/dL High [facility] Comment on above: Order Comment: CLEAN CATCH Result Comment: The drugs N-Acetylcysteine and Metamizole may falsely depress this assay. Normal range: <150 mg/dL Borderline High: 150-199 mg/dL High: 200-499 mg/dL Very High: >500 mg/dL Performed By: #### L 400.0001, L500.2500, L100.0100, M100.2200 #### [facility] [address] [place], [address] Screening total cholesterol/ high density lipoprotein (HDL) cholesterol ratioOrdered By: Amalia Ramos on 07-30-2024 Cholesterol.total/Cholest markus in HDL [Mass ratio] 5.49 {ratio} [facility] Serum or plasma cholesterol in HDL measurement (mass/volume)Ordered By: Amalia Ramos on 07-30-2024 Cholesterol in HDL [Mass/Vol] 41 mg/dL >40 [facility] Comment on above: National Cholesterol Education Program (NCEP) guidelines:<40 mg/dL: Low HDL-cholesterol (major risk factor for CHD)>= 60 mg/dL: High HDL-cholesterol (negative risk factor for CHD)HDL-cholesterol is affected by a number of factors, e.g. smoking, exercise, hormones, sex and age. Serum or plasma cholesterol measurement (mass/volume)Ordered By: Amalia Ramos on 07-30-2024 Cholesterol [Mass/Vol] 224 mg/dL High <201 [facility] [place] Comment on above: Cholesterol level, D esirable <200 mg/dLBorderline high cholesterol 200-239 mg/dLHigh cholesterol >=240 mg/dLRecommendations of the NCEP Adult Treatment Panel for the following risk-cutoff thresholds for the [place] population. Triglycerides measurementOrd ered By: Amalia Ramos on 07-30-2024 Triglyceride [Mass/Vol] 207 mg/dL High <199 [facility] Comment on above: The drugs N-Acetylcy steine and Metamizole may falsely depress this assay. Normal range: <150 mg/dLBorderline High: 150-199 mg/dLHigh: 200-499 mg/dLVery High: >500 mg/dL Anion gap in Serum or Plasma Ordered By: Umberto Aquino on 07-15-2024 Anion gap [Moles/Vol] 13 mmol/L - [facility] BUN/creatinine ratioOrdered By: Umberto Aquino on 07-15-2024 Urea nitrogen/Creatinine [Mass ratio] 23.2 mg/mg High 01-18 [facility] Basic Metabolic Profile (BMP )on 07-15-2024 BUN/CRE 23.2 RATIO High 01-18 [facility] Comment on above: Order Comment: 504-1 Performed By: #### L 400.0001, L500.2500, L100.0100, M100.2200 #### [facility] [address] [place], [address] Calcium [Mass/Vol] 9.2 mg/dL Normal 7.6-11.0 [facility] Comment on above: Order Comment: 504-1 Performed By: #### L 400.0001, L500.2500, L100.0100, M100.2200 #### [facility] [address] [place], [address] Chloride [Moles/Vol] 99 mmol/L Normal 98-108 [facility] Comment on above: Order Comment: 504-1 Performed By: #### L 400.0001, L500.2500, L100.0100, M100.2200 #### [facility] [address] [place], [address] CO2 [Moles/Vol] 28.1 mmol/L Normal 21.0-32.0 [facility] Comment on above: Order Comment: 504-1 Performed By: #### L 400.0001, L500.2500, L100.0100, M100.2200 #### [facility] [address] [place], [address] Creatinine [Mass/Vol] 1.00 mg/dL Normal 0.70-1.20 [facility] Comment on above: Order Comment: 504-1 Performed By: #### L 400.0001, L500.2500, L100.0100, M100.2200 #### [facility] [address] [place], [address] GAP 13 Normal 5-15 [facility] Comment on above: Order Comment: 504-1 Performed By: #### L 400.0001, L500.2500, L100.0100, M100.2200 #### [facility] [address] [place], [address] GFR/1.73 sq M.predicted among non-blacks MDRD (S/P/Bld) [Vol rate/Area] 58 mL/min/{1.73_m2} Low >60 [facility] Comment on above: Order Comment: 504-1 Result Comment: mL/m in/1.73m2 CKD-EPI Creatinine Equation (2020) Performed By: #### L 400.0001, L500.2500, L100.0100, M100.2200 #### [facility] [address] [place], [address] Glucose [Mass/Vol] 86 mg/dL Normal 70-99 [facility] Comment on above: Order Comment: 504-1 Performed By: #### L 400.0001, L500.2500, L100.0100, M100.2200 #### [facility] [address] [place], [address] Potassium [Moles/Vol] 3.7 mmol/L Normal 3.3-5.1 [facility] Comment on above: Order Comment: 504-1 Performed By: #### L 400.0001, L500.2500, L100.0100, M100.2200 #### [facility] [address] [place], [address] Sodium [Moles/Vol] 140 mmol/L Normal 133-145 [facility] Comment on above: Order Comment: 504-1 Performed By: #### L 400.0001, L500.2500, L100.0100, M100.2200 #### [facility] [address] [place], [address] Urea nitrogen [Mass/Vol] 23 mg/dL High 4-19 [facility] Comment on above: Order Comment: 504-1 Performed By: #### L 400.0001, L500.2500, L100.0100, M100.2200 #### [facility] [address] [place], [address] CBC-Complete Blood Cnt No Di ffon 07-15-2024 Erythrocyte distribution width (RBC) [Ratio] 14.6 % Normal 11.6-14.6 [facility] Comment on above: Order Comment: 504-1 Performed By: #### L 400.0001, L500.2500, L100.0100, M100.2200 #### [facility] [address] [place], [address] Hematocrit (Bld) [Volume fraction] 36.2 % Low 37-47 [facility] Comment on above: Order Comment: 504-1 Performed By: #### L 400.0001, L500.2500, L100.0100, M100.2200 #### [facility] [address] [place], [address] Hemoglobin (Bld) [Mass/Vol] 11.9 g/dL Low 12.0-15.0 [facility] Comment on above: Order Comment: 504-1 Performed By: #### L 400.0001, L500.2500, L100.0100, M100.2200 #### [facility] [address] [place], [address] MCH (RBC) [Entitic mass] 30.5 pg Normal 27.0-32.0 [facility] Comment on above: Order Comment: 504-1 Performed By: #### L 400.0001, L500.2500, L100.0100, M100.2200 #### [facility] [address] [place], [address] MCHC (RBC) [Mass/Vol] 32.9 g/dL Normal 32-36 [facility] Comment on above: Order Comment: 504-1 Performed By: #### L 400.0001, L500.2500, L100.0100, M100.2200 #### [facility] [address] [place], [address] MCV (RBC) [Entitic vol] 92.8 fL Normal 81-99 [facility] Comment on above: Order Comment: 504-1 Performed By: #### L 400.0001, L500.2500, L100.0100, M100.2200 #### [facility] [address] [place], [address] Platelet mean volume (Bld) [Entitic vol] 10.6 fL Normal 6.2-12.0 [facility] Comment on above: Order Comment: 504-1 Performed By: #### L 400.0001, L500.2500, L100.0100, M100.2200 #### [facility] [address] [place], [address] Platelets (Bld) [#/Vol] 257 10*3/uL Normal 150-450 [facility] Comment on above: Order Comment: 504-1 Performed By: #### L 400.0001, L500.2500, L100.0100, M100.2200 #### [facility] [address] [place], [address] RBC (Bld) [#/Vol] 3.90 10*6/uL Low 4.2-5.4 [facility] Comment on above: Order Comment: 504-1 Performed By: #### L 400.0001, L500.2500, L100.0100, M100.2200 #### [facility] [address] [place], [address] RDW SD 50.3 fl High 35.1-43.9 [facility] Comment on above: Order Comment: 504-1 Performed By: #### L 400.0001, L500.2500, L100.0100, M100.2200 #### [facility] [address] [place], [address] WBC (Bld) [#/Vol] 7.1 10*3/uL Normal 4.4-11.0 [facility] Comment on above: Order Comment: 504-1 Performed By: #### L 400.0001, L500.2500, L100.0100, M100.2200 #### [facility] [address] [place], [address] Carbon dioxide, total [Moles /volume] in Central venous bloodOrdered By: Umberto Aquino on 07-15-2024 CO2 [Moles/Vol] 28.1 mmol/L 21.0-32.0 [facility] Chloride assayOrdered By: Ghulam Aquino on 07-15-2024 Chloride [Moles/Vol] 99 mmol/L 98-108 [facility] Erythrocyte distribution wid th ratioOrdered By: Umberto Aquino on 07-15-2024 Erythrocyte distribution width (RBC) [Ratio] 14.6 % 11.6-14.6 [facility] Erythrocyte distribution wid th standard deviationOrdered By: Umberto Aquino on 07-15-2024 Erythrocyte distribution width (RBC) [Ratio] 50.3 fl High 35.1-43.9 [facility] Glomerular filtration rate ( GFR) estimation/1.73 sq m using serum, plasma, or whole bOrdered By: Umberto Aquino on 07-15-2024 GFR/1.73 sq M.predicted among non-blacks MDRD (S/P/Bld) [Vol rate/Area] 58 mL/min/{1.73_m2} Low >60 [facility] Comment on above: mL/min/1.73m2 CKD-EP I Creatinine Equation (2020) Hematocrit Auto (Bld) [Volum e fraction]Ordered By: Umberto Aquino on 07-15-2024 Hematocrit (Bld) [Volume fraction] 36.2 % Low 37-47 [facility] Hemoglobin A1con 07-15-2024 HbA1c (Bld) [Mass fraction] 5.5 % Normal <=5.6 [facility] Comment on above: Order Comment: 504-1 Result Comment: Norm al < 5.7 % Prediabetic 5.7 - 6.4 % Diabetic >or= 6.5 % Please note range changes. Performed By: #### L 400.0001, L500.2500, L100.0100, M100.2200 #### [facility] [address] [place], [place], [address] Hemoglobin A1c percentageOrd ered By: Umberto Aquino on 07-15-2024 HbA1c (Bld) [Mass fraction] 5.5 % <5.7 [facility] Comment on above: Normal < 5.7 % Predi abetic 5.7 - 6.4 % Diabetic >or= 6.5 % Please note range changes. Hemoglobin measurementOrdere d By: Umberto Aquino on 07-15-2024 Hemoglobin (Bld) [Mass/Vol] 11.9 g/dL Low 12.0-15.0 [facility] MCV (mean corpuscular volume ) determinationOrdered By: Umberto Aquino on 07-15-2024 MCV (RBC) [Entitic vol] 92.8 fL 81-99 [facility] Mean corpuscular hemoglobin (MCH) determinationOrdered By: Umberto Aquino on 07-15-2024 MCH (RBC) [Entitic mass] 30.5 pg 27.0-32.0 [facility] Mean corpuscular hemoglobin concentration (MCHC) determinationOrdered By: Umberto Aquino on 07-15-2024 MCHC (RBC) [Mass/Vol] 32.9 g/dL 32-36 [facility] Mean platelet volume determi nationOrdered By: Umberto Aquino on 07-15-2024 Platelet mean volume (Bld) [Entitic vol] 10.6 fL 6.2-12.0 [facility] Platelet countOrdered By: Ghulam Aquino on 07-15-2024 Platelets (Bld) [#/Vol] 257 10*3/uL 150-450 [facility] Potassium measurement (mass/ volume)Ordered By: Umberto Aquino on 07-15-2024 Potassium (Unsp spec) [Mass/Vol] 3.7 mmol/L 3.3-5.1 [facility] RBC Auto (Bld) [#/Vol]Ordere d By: Umberto Aquino on 07-15-2024 RBC (Bld) [#/Vol] 3.90 10*6/uL Low 4.2-5.4 [facility] Serum creatinine measurement (mass/volume)Ordered By: Umberto Aquino on 07-15-2024 Creatinine [Mass/Vol] 1.00 mg/dL 0.70-1.20 [facility] Serum glucose measurement (m ass/volume)Ordered By: Umberto Aquino on 07-15-2024 Glucose [Mass/Vol] 86 mg/dL 70-99 [facility] Serum or plasma calcium jared urement (mass/volume)Ordered By: Umberto Aquino on 07-15-2024 Calcium [Mass/Vol] 9.2 mg/dL 7.6-11.0 [facility] Serum or plasma urea nitroge n measurement (mass/volume)Ordered By: Umberto Aquino on 07-15-2024 Urea nitrogen [Mass/Vol] 23 mg/dL High 4-19 [facility] Sodium levelOrdered By: Umberto Aquino on 07-15-2024 Sodium [Moles/Vol] 140 mmol/L 133-145 [facility] Vitamin D,25 Hydroxyon 07-15 Vitamin D 25-OH 37.3 ng/mL Normal 30-100 [facility] Comment on above: Order Comment: CLEAN CATCH Result Comment: Rochelle min D Status Deficiency: <20 ng/mL (50nmol/L) Insufficiency: 20-30 ng/mL (50-75 nmol/L) Sufficiency: 30-100 ng/mL (75-250 nmol/L) Toxicity: >100 ng/mL (>250 nmol/L) Performed By: #### L 400.0001, L500.2500, L100.0100, M100.2200 #### [facility] [address] [place], [address] White blood cell (WBC) count Ordered By: Umberto Aquino on 07-15-2024 WBC (Bld) [#/Vol] 7.1 10*3/uL 4.4-11.0 [facility] Basic Metabolic Profile (BMP )on 04-16-2024 BUN/CRE 32.0 RATIO High 10-20 [facility] Comment on above: Order Comment: 504-1 Performed By: #### L 400.0001, L500.2500, L100.0100, M100.2200 #### [facility] [address] [place], [address] CA,Total 9.1 mg/dL Normal 8.5-10.1 [facility] Comment on above: Order Comment: 504-1 Performed By: #### L 400.0001, L500.2500, L100.0100, M100.2200 #### [facility] [address] [place], [address] Chloride [Moles/Vol] 108 mmol/L High 98-107 [facility] Comment on above: Order Comment: 504-1 Performed By: #### L 400.0001, L500.2500, L100.0100, M100.2200 #### [facility] [address] [place], [address] CO2 [Moles/Vol] 31.0 mmol/L Normal 21.0-32.0 [facility] Comment on above: Order Comment: 504-1 Performed By: #### L 400.0001, L500.2500, L100.0100, M100.2200 #### [facility] [address] [place], [address] Creatinine [Mass/Vol] 1.25 mg/dL High 0.55-1.02 [facility] Comment on above: Order Comment: 504-1 Result Comment: The validity of the calculated GFR GFRAA in patients over 70 years has not been determined. Clinical correlation is essential. Performed By: #### L 400.0001, L500.2500, L100.0100, M100.2200 #### [facility] [address] [place], [address] EST GFR - AA 53 mL/min Low >60 [facility] Comment on above: Order Comment: 504-1 Result Comment: Afri can Turkmen GFR Calc Performed By: #### L 400.0001, L500.2500, L100.0100, M100.2200 #### [facility] [address] [place], [address] GAP 6 Normal 5-15 [facility] Comment on above: Order Comment: 504-1 Performed By: #### L 400.0001, L500.2500, L100.0100, M100.2200 #### [facility] [address] [place], [address] GFR/1.73 sq M.predicted among non-blacks MDRD (S/P/Bld) [Vol rate/Area] 44 mL/min/{1.73_m2} Low >60 [facility] Comment on above: Order Comment: 504-1 Result Comment: Non- GFR Calc Performed By: #### L 400.0001, L500.2500, L100.0100, M100.2200 #### [facility] [address] [place], [address] Glucose [Mass/Vol] 132 mg/dL High 74-106 [facility] Comment on above: Order Comment: 504-1 Result Comment: Fast ing Glucose result greater than or equal to 126 mg/dL suggests DIABETES MELLITUS per A.D.A. criteria. Performed By: #### L 400.0001, L500.2500, L100.0100, M100.2200 #### [facility] [address] [place], [address] Potassium [Moles/Vol] 4.3 mmol/L Normal 3.5-5.1 [facility] Comment on above: Order Comment: 504-1 Performed By: #### L 400.0001, L500.2500, L100.0100, M100.2200 #### [facility] [address] [place], [address] Sodium [Moles/Vol] 145 mmol/L Normal 136-145 [facility] Comment on above: Order Comment: 504-1 Performed By: #### L 400.0001, L500.2500, L100.0100, M100.2200 #### [facility] [address] [place], [address] Urea nitrogen [Mass/Vol] 40 mg/dL High 7-18 [facility] Comment on above: Order Comment: 504-1 Performed By: #### L 400.0001, L500.2500, L100.0100, M100.2200 #### [facility] [address] [place], [address] CBC-Complete Blood Cnt No Gayathri alvarenga 04-16-2024 Erythrocyte distribution width (RBC) [Ratio] 13.8 % Normal 11.6-14.6 [facility] Comment on above: Order Comment: 504-1 Performed By: #### L 400.0001, L500.2500, L100.0100, M100.2200 #### [facility] [address] [place], [address] Hematocrit (Bld) [Volume fraction] 38.0 % Normal 37-47 [facility] Comment on above: Order Comment: 504-1 Performed By: #### L 400.0001, L500.2500, L100.0100, M100.2200 #### [facility] [address] [place], [address] Hemoglobin (Bld) [Mass/Vol] 11.8 g/dL Low 12.0-15.0 [facility] Comment on above: Order Comment: 504-1 Performed By: #### L 400.0001, L500.2500, L100.0100, M100.2200 #### [facility] [address] [place], [address] MCH (RBC) [Entitic mass] 29.9 pg Normal 27.0-32.0 [facility] Comment on above: Order Comment: 504-1 Performed By: #### L 400.0001, L500.2500, L100.0100, M100.2200 #### [facility] [address] [place], [address] MCHC (RBC) [Mass/Vol] 31.1 g/dL Low 32-36 [facility] Comment on above: Order Comment: 504-1 Performed By: #### L 400.0001, L500.2500, L100.0100, M100.2200 #### [facility] [address] [place], [address] MCV (RBC) [Entitic vol] 96.4 fL Normal 81-99 [facility] Comment on above: Order Comment: 504-1 Performed By: #### L 400.0001, L500.2500, L100.0100, M100.2200 #### [facility] [address] [place], [address] Platelet mean volume (Bld) [Entitic vol] 10.5 fL Normal 6.2-12.0 [facility] Comment on above: Order Comment: 504-1 Performed By: #### L 400.0001, L500.2500, L100.0100, M100.2200 #### [facility] [address] [place], [address] Platelets (Bld) [#/Vol] 293 10*3/uL Normal 150-450 [facility] Comment on above: Order Comment: 504-1 Performed By: #### L 400.0001, L500.2500, L100.0100, M100.2200 #### [facility] [address] [place], [address] RBC (Bld) [#/Vol] 3.94 10*6/uL Low 4.2-5.4 [facility] Comment on above: Order Comment: 504-1 Performed By: #### L 400.0001, L500.2500, L100.0100, M100.2200 #### [facility] [address] [place], [address] RDW SD 48.6 fl High 35.1-43.9 [facility] Comment on above: Order Comment: 504-1 Performed By: #### L 400.0001, L500.2500, L100.0100, M100.2200 #### [facility] [address] [place], [address] WBC (Bld) [#/Vol] 7.0 10*3/uL Normal 4.4-11.0 [facility] Comment on above: Order Comment: 504-1 Performed By: #### L 400.0001, L500.2500, L100.0100, M100.2200 #### [facility] [address] [place], [address] Hemoglobin A1con 04-16-2024 HbA1c (Bld) [Mass fraction] 6.3 % High 3.8-5.6 [facility] Comment on above: Order Comment: Result Comment: Norm al < 5.7 % Prediabetic 5.7 - 6.4 % Diabetic >or= 6.5 % Please note range changes. Performed By: #### L 400.0001, L500.2500, L100.0100, M100.2200 #### [facility] [address] [place], [address] Vitamin D,25 Hydroxyon 04-16 Vitamin D 25-OH 40.7 ng/mL Normal [facility] Comment on above: Order Comment: Result Comment: Rochelle min D 25(OH) Status Range Deficiency <20 ng/mL (50nmol/L) Insufficiency 20 - 30 ng/mL (50 - 75 nmol/L) Sufficiency 30 - 100 ng/mL (75 - 250 nmol/L) Toxicity >100 ng/mL (>250 nmol/L) Performed By: #### L 400.0001, L500.2500, L100.0100, M100.2200 #### [facility] [address] [place], [address] Urine Cultureon 03-31-2024 [facility] Mixed Gram Pos Gram Neg Org [place] Count >100,000 MIXC Mixed contaminants. Submit a new specimen if indicated. Normal [facility] Comment on above: Performed By: #### L 400.0001, L500.2500, L100.0100, M100.2200 #### [facility] [address] [place], [address] Basic Metabolic Profile (BMP )on 03-30-2024 BUN/CRE 26.6 RATIO High 10-20 [facility] Comment on above: Order Comment: 504-1 Performed By: #### L 400.0001, L500.2500, L100.0100, M100.2200 #### [facility] [address] [place], [address] CA,Total 9.8 mg/dL Normal 8.5-10.1 [facility] Comment on above: Order Comment: 504-1 Performed By: #### L 400.0001, L500.2500, L100.0100, M100.2200 #### [facility] [address] [place], [address] Chloride [Moles/Vol] 99 mmol/L Normal 98-107 [facility] Comment on above: Order Comment: 504-1 Performed By: #### L 400.0001, L500.2500, L100.0100, M100.2200 #### [facility] [address] [place], [address] CO2 [Moles/Vol] 31.0 mmol/L Normal 21.0-32.0 [facility] Comment on above: Order Comment: 504-1 Performed By: #### L 400.0001, L500.2500, L100.0100, M100.2200 #### [facility] [address] [place], [address] Creatinine [Mass/Vol] 1.09 mg/dL High 0.55-1.02 [facility] Comment on above: Order Comment: 504-1 Result Comment: The validity of the calculated GFR GFRAA in patients over 70 years has not been determined. Clinical correlation is essential. Performed By: #### L 400.0001, L500.2500, L100.0100, M100.2200 #### [facility] [address] [place], [address] EST GFR - AA 63 mL/min Normal >60 [facility] Comment on above: Order Comment: 504-1 Result Comment: Afri can Turkmen GFR Calc Performed By: #### L 400.0001, L500.2500, L100.0100, M100.2200 #### [facility] [address] [place], [address] GAP 8 Normal 5-15 [facility] Comment on above: Order Comment: 504-1 Performed By: #### L 400.0001, L500.2500, L100.0100, M100.2200 #### [facility] [address] [place], [address] GFR/1.73 sq M.predicted among non-blacks MDRD (S/P/Bld) [Vol rate/Area] 52 mL/min/{1.73_m2} Low >60 [facility] Comment on above: Order Comment: 504-1 Result Comment: Non- GFR Calc Performed By: #### L 400.0001, L500.2500, L100.0100, M100.2200 #### [facility] [address] [place], [address] Glucose [Mass/Vol] 98 mg/dL Normal 74-106 [facility] Comment on above: Order Comment: 504-1 Performed By: #### L 400.0001, L500.2500, L100.0100, M100.2200 #### [facility] [address] [place], [address] Potassium [Moles/Vol] 4.1 mmol/L Normal 3.5-5.1 [facility] Comment on above: Order Comment: 504-1 Performed By: #### L 400.0001, L500.2500, L100.0100, M100.2200 #### [facility] [address] [place], [address] Sodium [Moles/Vol] 138 mmol/L Normal 136-145 [facility] Comment on above: Order Comment: 504-1 Performed By: #### L 400.0001, L500.2500, L100.0100, M100.2200 #### [facility] [address] [place], [address] Urea nitrogen [Mass/Vol] 29 mg/dL High 7-18 [facility] Comment on above: Order Comment: 504-1 Performed By: #### L 400.0001, L500.2500, L100.0100, M100.2200 #### [facility] [address] [place], [address] CBC W/Diff, Automatedon 12-3 0-4 Absolute Lymph 2.13 X10 3/uL Normal 0.83-4.51 [facility] Comment on above: Order Comment: 504-1 Performed By: #### L 400.0001, L500.2500, L100.0100, M100.2200 #### [facility] [address] [place], [address] Absolute Neut 4.5 X10 3/uL Normal 2.0-7.7 [facility] Comment on above: Order Comment: 504-1 Performed By: #### L 400.0001, L500.2500, L100.0100, M100.2200 #### [facility] [address] [place], [address] Basophils/100 WBC (Bld) 0.7 % Normal 0-1 [facility] Comment on above: Order Comment: 504-1 Performed By: #### L 400.0001, L500.2500, L100.0100, M100.2200 #### [facility] [address] [place], [address] Eosinophils/100 WBC (Bld) 3.9 % Normal 0-5 [facility] Comment on above: Order Comment: 504-1 Performed By: #### L 400.0001, L500.2500, L100.0100, M100.2200 #### [facility] [address] [place], [address] Erythrocyte distribution width (RBC) [Ratio] 13.5 % Normal 11.6-14.6 [facility] Comment on above: Order Comment: 504-1 Performed By: #### L 400.0001, L500.2500, L100.0100, M100.2200 #### [facility] [address] [place], [address] Hematocrit (Bld) [Volume fraction] 40.1 % Normal 37-47 [facility] Comment on above: Order Comment: 504-1 Performed By: #### L 400.0001, L500.2500, L100.0100, M100.2200 #### [facility] [address] [place], [address] Hemoglobin (Bld) [Mass/Vol] 12.6 g/dL Normal 12.0-15.0 [facility] Comment on above: Order Comment: 504-1 Performed By: #### L 400.0001, L500.2500, L100.0100, M100.2200 #### [facility] [address] [place], [address] IG% 0.700 Normal 0.0-0.9 [facility] Comment on above: Order Comment: 504-1 Result Comment: IG% - Immature Granulocytes (promyelocytes, myelocytes and metamyelocytes) > 1% indicates that a LEFT SHIFT is Present. Performed By: #### L 400.0001, L500.2500, L100.0100, M100.2200 #### [facility] [address] [place], [address] Lymphocytes/100 WBC (Bld) 28.4 % Normal 19-41 [facility] Comment on above: Order Comment: 504-1 Performed By: #### L 400.0001, L500.2500, L100.0100, M100.2200 #### [facility] [address] [place], [address] MCH (RBC) [Entitic mass] 29.7 pg Normal 27.0-32.0 [facility] Comment on above: Order Comment: 504-1 Performed By: #### L 400.0001, L500.2500, L100.0100, M100.2200 #### [facility] [address] [place], [address] MCHC (RBC) [Mass/Vol] 31.4 g/dL Low 32-36 [facility] Comment on above: Order Comment: 504-1 Performed By: #### L 400.0001, L500.2500, L100.0100, M100.2200 #### [facility] [address] [place], [address] MCV (RBC) [Entitic vol] 94.6 fL Normal 81-99 [facility] Comment on above: Order Comment: 504-1 Performed By: #### L 400.0001, L500.2500, L100.0100, M100.2200 #### [facility] [address] [place], [address] Monocytes/100 WBC (Bld) 6.9 % Normal 0-10 [facility] Comment on above: Order Comment: 504-1 Performed By: #### L 400.0001, L500.2500, L100.0100, M100.2200 #### [facility] [address] [place], [address] Neutrophils/100 WBC (Bld) 59.4 % Normal 47-70 [facility] Comment on above: Order Comment: 504-1 Performed By: #### L 400.0001, L500.2500, L100.0100, M100.2200 #### [facility] [address] [place], [address] Nucleated RBC (Bld) [#/Vol] 0 10*3/uL Normal 0-5 [facility] Comment on above: Order Comment: 504-1 Performed By: #### L 400.0001, L500.2500, L100.0100, M100.2200 #### [facility] [address] [place], [address] Platelet mean volume (Bld) [Entitic vol] 10.6 fL Normal 6.2-12.0 [facility] Comment on above: Order Comment: 504-1 Performed By: #### L 400.0001, L500.2500, L100.0100, M100.2200 #### [facility] [address] [place], [address] Platelets (Bld) [#/Vol] 307 10*3/uL Normal 150-450 [facility] Comment on above: Order Comment: 504-1 Performed By: #### L 400.0001, L500.2500, L100.0100, M100.2200 #### [facility] [address] [place], [address] RBC (Bld) [#/Vol] 4.24 10*6/uL Normal 4.2-5.4 [facility] Comment on above: Order Comment: 504-1 Performed By: #### L 400.0001, L500.2500, L100.0100, M100.2200 #### [facility] [address] [place], [address] RDW SD 46.7 fl High 35.1-43.9 [facility] Comment on above: Order Comment: 504-1 Performed By: #### L 400.0001, L500.2500, L100.0100, M100.2200 #### [facility] [address] [place], [address] WBC (Bld) [#/Vol] 7.5 10*3/uL Normal 4.4-11.0 [facility] Comment on above: Order Comment: 504-1 Performed By: #### L 400.0001, L500.2500, L100.0100, M100.2200 #### [facility] [address] [place], [address] Urinalysis, Completeon 03-30 AMORPHOUS 1+ Normal [facility] Comment on above: Order Comment: CLEAN CATCH Performed By: #### L 400.0001, L500.2500, L100.0100, M100.2200 #### [facility] [address] [place], [address] BACTERIA 3+ /hpf Normal None Seen [facility] Comment on above: Order Comment: CLEAN CATCH Performed By: #### L 400.0001, L500.2500, L100.0100, M100.2200 #### [facility] [address] [place], [address] EPI,SQUAMOUS 0-5 SEEN Normal 5-10 [facility] Comment on above: Order Comment: CLEAN CATCH Performed By: #### L 400.0001, L500.2500, L100.0100, M100.2200 #### [facility] [address] [place], [address] Mucus Ql (Urine sed) 1+ /hpf Normal [facility] Comment on above: Order Comment: CLEAN CATCH Performed By: #### L 400.0001, L500.2500, L100.0100, M100.2200 #### [facility] [address] [place], [address] RBC 0 SEEN Normal 0-5 [facility] Comment on above: Order Comment: CLEAN CATCH Performed By: #### L 400.0001, L500.2500, L100.0100, M100.2200 #### [facility] [address] [place], [address] WBC 0 SEEN Normal 0-5 [facility] Comment on above: Order Comment: CLEAN CATCH Performed By: #### L 400.0001, L500.2500, L100.0100, M100.2200 #### [facility] [address] [place], [address] Basic Metabolic Profile (BMP )on 02-05-2024 BUN/CRE 22.9 RATIO High 10-20 [facility] Comment on above: Order Comment: 504-1 Performed By: #### L 400.0001, L500.2500, L100.0100, M100.2200 #### [facility] [address] [place], [address] CA,Total 9.2 mg/dL Normal 8.5-10.1 [facility] Comment on above: Order Comment: 504-1 Performed By: #### L 400.0001, L500.2500, L100.0100, M100.2200 #### [facility] [address] [place], [address] Chloride [Moles/Vol] 102 mmol/L Normal 98-107 [facility] Comment on above: Order Comment: 504-1 Performed By: #### L 400.0001, L500.2500, L100.0100, M100.2200 #### [facility] [address] [place], [address] CO2 [Moles/Vol] 32.0 mmol/L Normal 21.0-32.0 [facility] Comment on above: Order Comment: 504-1 Performed By: #### L 400.0001, L500.2500, L100.0100, M100.2200 #### [facility] [address] [place], [address] Creatinine [Mass/Vol] 1.31 mg/dL High 0.55-1.02 [facility] Comment on above: Order Comment: 504-1 Result Comment: The validity of the calculated GFR GFRAA in patients over 70 years has not been determined. Clinical correlation is essential. Performed By: #### L 400.0001, L500.2500, L100.0100, M100.2200 #### [facility] [address] [place], [address] EST GFR - AA 51 mL/min Low >60 [facility] Comment on above: Order Comment: 504- Result Comment: Afri can Turkmen GFR Calc Performed By: #### L 400.0001, L500.2500, L100.0100, M100.2200 #### [facility] [address] [place], [address] GAP 6 Normal 5-15 [facility] Comment on above: Order Comment: 504-1 Performed By: #### L 400.0001, L500.2500, L100.0100, M100.2200 #### [facility] [address] [place], [address] GFR/1.73 sq M.predicted among non-blacks MDRD (S/P/Bld) [Vol rate/Area] 42 mL/min/{1.73_m2} Low >60 [facility] Comment on above: Order Comment: Result Comment: Non- GFR Calc Performed By: #### L 400.0001, L500.2500, L100.0100, M100.2200 #### [facility] [address] [place], [address] Glucose [Mass/Vol] 168 mg/dL High 74-106 [facility] Comment on above: Order Comment: 504- Result Comment: Fast ing Glucose result greater than or equal to 126 mg/dL suggests DIABETES MELLITUS per A.D.A. criteria. Performed By: #### L 400.0001, L500.2500, L100.0100, M100.2200 #### [facility] [address] [place], [address] Potassium [Moles/Vol] 4.0 mmol/L Normal 3.5-5.1 [facility] Comment on above: Order Comment: 504-1 Performed By: #### L 400.0001, L500.2500, L100.0100, M100.2200 #### [facility] [address] [place], [address] Sodium [Moles/Vol] 139 mmol/L Normal 136-145 [facility] Comment on above: Order Comment: 504-1 Performed By: #### L 400.0001, L500.2500, L100.0100, M100.2200 #### [facility] [address] [place], [address] Urea nitrogen [Mass/Vol] 30 mg/dL High 7-18 [facility] Comment on above: Order Comment: 504-1 Performed By: #### L 400.0001, L500.2500, L100.0100, M100.2200 #### [facility] [address] [place], [address] Hemoglobin A1con 02-05-2024 HbA1c (Bld) [Mass fraction] 7.5 % High 3.8-5.6 [facility] Comment on above: Order Comment: 504-1 Result Comment: Norm al < 5.7 % Prediabetic 5.7 - 6.4 % Diabetic >or= 6.5 % Please note range changes. Performed By: #### L 400.0001, L500.2500, L100.0100, M100.2200 #### [facility] [address] [place], [address] Lipid Profileon 02-05-2024 Cholesterol [Mass/Vol] 231 mg/dL High 200 [facility] Comment on above: Order Comment: 504-1 Result Comment: <200 mg/dL Desirable 200-240 mg/dL Borderline >240 mg/dL High Risk Performed By: #### L 400.0001, L500.2500, L100.0100, M100.2200 #### [facility] [address] [place], [address] Cholesterol in HDL [Mass/Vol] 41 mg/dL Normal [facility] Comment on above: Order Comment: 504-1 Result Comment: The drugs N-Acetylcysteine and Metamizole may falsely depress this assay. Reference Range HDL <40 mg/dL Low HDL Cholesterol HDL >or= 60 mg/dL High HDL Cholesterol Performed By: #### L 400.0001, L500.2500, L100.0100, M100.2200 #### [facility] [address] [place], [address] Cholesterol in LDL [Mass/Vol] 114 mg/dL Normal 0-130 [facility] Comment on above: Order Comment: 504-1 Performed By: #### L 400.0001, L500.2500, L100.0100, M100.2200 #### [facility] [address] [place], [address] Cholesterol in VLDL [Mass/Vol] 76 mg/dL High 5-40 [facility] Comment on above: Order Comment: 504-1 Performed By: #### L 400.0001, L500.2500, L100.0100, M100.2200 #### [facility] [address] [place], [address] Triglyceride [Mass/Vol] 378 mg/dL High [facility] Comment on above: Order Comment: 504-1 Result Comment: The drugs N-Acetylcysteine and Metamizole may falsely depress this assay. Serum Triglycerides Reference Interval Normal <150 mg/dL Borderline high 150 - 199 mg/dL High 200 - 499 mg/dL Very High > or = 500 mg/dL Performed By: #### L 400.0001, L500.2500, L100.0100, M100.2200 #### [facility] [address] [place], [address] Urine Cultureon 01-26-2024 [facility] Presumptive E. coli [place] Count >100,000 Presumptive E. coli: REACTION Ampicillin Islt SILVANA <=2 Ampicillin+Sulbac Islt SILVANA <=2 S ceFAZolin Islt SILVANA <=4 S Cefepime Islt SILVANA <=0.12 S cefTRIAXone Islt SILVANA <=0.25 S Ciprofloxacin Islt SILVANA <=0.25 S B-Lactamase Extended Susc Islt NEG Gentamicin Islt SILVNAA <=1 S Imipenem Islt SILVANA <=0.25 S levoFLOXacin Islt SILVANA <=0.12 S Nitrofurantoin Islt SILVANA <=16 S Pip+Tazo Islt SILVANA <=4 S Tobramycin Islt SILVANA <=1 S TMP SMX Islt SILVANA <=20 S Normal [facility] Comment on above: Performed By: #### L 400.2010, #### [facility] [address] [place], [address] Urinalysis, Routine (Dipstic k)on 01-24-2024 BILIRUBIN URINE Negative Normal Negative [facility] Comment on above: Order Comment: CLEAN CATCH Performed By: #### L 400.2010, #### [facility] [address] [place], [address] Clarity (U) Clear Normal Clear [facility] Comment on above: Order Comment: CLEAN CATCH Performed By: #### L 400.2010, #### [facility] [address] [place], [address] Color (U) Yellow Normal Yellow [facility] Comment on above: Order Comment: CLEAN CATCH Performed By: #### L 400.2010, #### [facility] [address] [place], [address] GLUCOSE, UR Normal Normal Normal [facility] Comment on above: Order Comment: CLEAN CATCH Performed By: #### L 400.2010, #### [facility] [address] [place], [address] KETONE UR Negative Normal Negative [facility] Comment on above: Order Comment: CLEAN CATCH Performed By: #### L 400.2010, #### [facility] [address] [place], [address] LEUK ESTERASE 500 /ul Abnormal Negative [facility] Comment on above: Order Comment: CLEAN CATCH Performed By: #### L 400.2010, #### [facility] [address] [place], [address] Nitrite Ql (U) Positive Abnormal Negative [facility] Comment on above: Order Comment: CLEAN CATCH Performed By: #### L 400.2010, #### [facility] [address] [place], [address] OCCULT BLOOD-UR Negative Normal Negative [facility] Comment on above: Order Comment: CLEAN CATCH Performed By: #### L 400.2010, #### [facility] [address] [place], [address] pH UR 6.0 Normal 5.0 - 8.0 [facility] Comment on above: Order Comment: CLEAN CATCH Performed By: #### L 400.2010, #### [facility] [address] [place], [address] PROT DIPSTX 15 mg/dl Abnormal Negative [facility] Comment on above: Order Comment: CLEAN CATCH Performed By: #### L 400.2010, #### [facility] [address] [place], [address] SP.GR. DIPSTX 1.020 Normal 1.002-1.030 [facility] Comment on above: Order Comment: CLEAN CATCH Performed By: #### L 400.2010, #### [facility] [address] [place], [address] UROBILI Normal Normal Normal [facility] Comment on above: Order Comment: CLEAN CATCH Performed By: #### L 400.2010, #### [facility] [address] [place], [address] Basic Metabolic Profile (BMP )on 01-17-2024 BUN/CRE 26.3 RATIO High 01-18 [facility] Comment on above: Order Comment: 500 Performed By: #### L 501.9985, L500.2500, L100.0500, L506.1000 #### [facility] [address] [place], [address] CA,Total 9.1 mg/dL Normal 8.5-10.1 [facility] Comment on above: Order Comment: 500 Performed By: #### L 501.9985, L500.2500, L100.0500, L506.1000 #### [facility] [address] [place], [address] Chloride [Moles/Vol] 108 mmol/L High 98-107 [facility] Comment on above: Order Comment: 500 Performed By: #### L 501.9985, L500.2500, L100.0500, L506.1000 #### [facility] [address] [place], [address] CO2 [Moles/Vol] 29.0 mmol/L Normal 21.0-32.0 [facility] Comment on above: Order Comment: 500 Performed By: #### L 501.9985, L500.2500, L100.0500, L506.1000 #### [facility] [address] [place], [address] Creatinine [Mass/Vol] 1.14 mg/dL High 0.55-1.02 [facility] Comment on above: Order Comment: 500 Result Comment: The validity of the calculated GFR GFRAA in patients over 70 years has not been determined. Clinical correlation is essential. Performed By: #### L 501.9985, L500.2500, L100.0500, L506.1000 #### [facility] [address] [place], [address] EST GFR - AA 59 mL/min Low >60 [facility] Comment on above: Order Comment: 500 Result Comment: Afri can Turkmen GFR Calc Performed By: #### L 501.9985, L500.2500, L100.0500, L506.1000 #### [facility] [address] [place], [address] GAP 6 Normal 5-15 [facility] Comment on above: Order Comment: 500 Performed By: #### L 501.9985, L500.2500, L100.0500, L506.1000 #### [facility] [address] [place], [address] GFR/1.73 sq M.predicted among non-blacks MDRD (S/P/Bld) [Vol rate/Area] 49 mL/min/{1.73_m2} Low >60 [facility] Comment on above: Order Comment: 500 Result Comment: Non- GFR Calc Performed By: #### L 501.9985, L500.2500, L100.0500, L506.1000 #### [facility] [address] [place], [address] Glucose [Mass/Vol] 195 mg/dL High 74-106 [facility] Comment on above: Order Comment: 500 Result Comment: Fast ing Glucose result greater than or equal to 126 mg/dL suggests DIABETES MELLITUS per A.D.A. criteria. Performed By: #### L 501.9985, L500.2500, L100.0500, L506.1000 #### [facility] [address] [place], [address] Potassium [Moles/Vol] 3.7 mmol/L Normal 3.5-5.1 [facility] Comment on above: Order Comment: 500 Performed By: #### L 501.9985, L500.2500, L100.0500, L506.1000 #### [facility] [address] [place], [address] Sodium [Moles/Vol] 143 mmol/L Normal 136-145 [facility] Comment on above: Order Comment: 500 Performed By: #### L 501.9985, L500.2500, L100.0500, L506.1000 #### [facility] [address] [place], [address] Urea nitrogen [Mass/Vol] 30 mg/dL High 7-18 [facility] Comment on above: Order Comment: 500 Performed By: #### L 501.9985, L500.2500, L100.0500, L506.1000 #### [facility] [address] [place], [address] CBC-Complete Blood Cnt No Di ffon 01-17-2024 Erythrocyte distribution width (RBC) [Ratio] 13.4 % Normal 11.6-14.6 [facility] Comment on above: Order Comment: 500 Performed By: #### L 501.9985, L500.2500, L100.0500, L506.1000 #### [facility] [address] [place], [address] Hematocrit (Bld) [Volume fraction] 38.2 % Normal 37-47 [facility] Comment on above: Order Comment: 500 Performed By: #### L 501.9985, L500.2500, L100.0500, L506.1000 #### [facility] [address] [place], [address] Hemoglobin (Bld) [Mass/Vol] 12.3 g/dL Normal 12.0-15.0 [facility] Comment on above: Order Comment: 500 Performed By: #### L 501.9985, L500.2500, L100.0500, L506.1000 #### [facility] [address] [place], [address] MCH (RBC) [Entitic mass] 30.8 pg Normal 27.0-32.0 [facility] Comment on above: Order Comment: 500 Performed By: #### L 501.9985, L500.2500, L100.0500, L506.1000 #### [facility] [address] [place], [address] MCHC (RBC) [Mass/Vol] 32.2 g/dL Normal 32-36 [facility] Comment on above: Order Comment: 500 Performed By: #### L 501.9985, L500.2500, L100.0500, L506.1000 #### [facility] [address] [place], [address] MCV (RBC) [Entitic vol] 95.5 fL Normal 81-99 [facility] Comment on above: Order Comment: 500 Performed By: #### L 501.9985, L500.2500, L100.0500, L506.1000 #### [facility] [address] [place], [address] Platelet mean volume (Bld) [Entitic vol] 10.3 fL Normal 6.2-12.0 [facility] Comment on above: Order Comment: 500 Performed By: #### L 501.9985, L500.2500, L100.0500, L506.1000 #### [facility] [address] [place], [address] Platelets (Bld) [#/Vol] 262 10*3/uL Normal 150-450 [facility] Comment on above: Order Comment: 500 Performed By: #### L 501.9985, L500.2500, L100.0500, L506.1000 #### [facility] [address] [place], [address] RBC (Bld) [#/Vol] 4.00 10*6/uL Low 4.2-5.4 [facility] Comment on above: Order Comment: 500 Performed By: #### L 501.9985, L500.2500, L100.0500, L506.1000 #### [facility] [address] [place], [address] RDW SD 47.7 fl High 35.1-43.9 [facility] Comment on above: Order Comment: 500 Performed By: #### L 501.9985, L500.2500, L100.0500, L506.1000 #### [facility] [address] [place], [address] WBC (Bld) [#/Vol] 6.0 10*3/uL Normal 4.4-11.0 [facility] Comment on above: Order Comment: 500 Performed By: #### L 501.9985, L500.2500, L100.0500, L506.1000 #### [facility] [address] [place], [address] Hemoglobin A1con 01-17-2024 HbA1c (Bld) [Mass fraction] 7.3 % High 3.8-5.6 [facility] Comment on above: Order Comment: 500 Result Comment: Norm al < 5.7 % Prediabetic 5.7 - 6.4 % Diabetic >or= 6.5 % Please note range changes. Performed By: #### L 501.9985, L500.2500, L100.0500, L506.1000 #### [facility] [address] [place], [address] Vitamin D,25 Hydroxyon 01-16 Vitamin D 25-OH 36.5 ng/mL Normal [facility] Comment on above: Order Comment: 500 Result Comment: Rochelle min D 25(OH) Status Range Deficiency <20 ng/mL (50nmol/L) Insufficiency 20 - 30 ng/mL (50 - 75 nmol/L) Sufficiency 30 - 100 ng/mL (75 - 250 nmol/L) Toxicity >100 ng/mL (>250 nmol/L) Performed By: #### L 501.9985, L500.2500, L100.0500, L506.1000 #### [facility] [address] [place], [address] CBCon 12-19-2021 Erythrocyte distribution width (RBC) [Ratio] 13.5 % Normal 11.5 - 14.5 [facility] Comment on above: Performed By: #### C BC #### [facility] [address] [place] [address] Hematocrit (Bld) [Volume fraction] 42.0 % Normal 36.0 - 46.0 [facility] Comment on above: Performed By: #### C BC #### [facility] [address] [place] [address] Hemoglobin (Bld) [Mass/Vol] 13.3 g/dL Normal 12.0 - 16.0 [facility] Comment on above: Performed By: #### C BC #### [facility] [address] [place] [address] MCHC (RBC) [Mass/Vol] 31.7 g/dL Low 32.0 - 36.0 [facility] Comment on above: Performed By: #### C BC #### [facility] [address] [place] [address] MCV (RBC) [Entitic vol] 95 fL Normal 80 - 100 [facility] Comment on above: Performed By: #### C BC #### [facility] [address] [place], [place] NUCLEATED RBC 0.0 /100 WBC Normal 0.0-0.0 [facility] Comment on above: Performed By: #### C BC #### [facility] [address] [place] [address] Platelets (Bld) [#/Vol] 208 10*3/uL Normal 150 - 450 [facility] Comment on above: Performed By: #### C BC #### [facility] [address] [place] [address] RBC 4.40 x10E12/L Normal 4.00 - 5.20 [facility] Comment on above: Performed By: #### C BC #### [facility] [address] [place] [address] WBC (Bld) [#/Vol] 5.5 10*3/uL Normal 4.4 - 11.3 [facility] Comment on above: Performed By: #### C BC #### [facility] [address] [place] [address] CBCon 08-13-2021 Erythrocyte distribution width (RBC) [Ratio] 12.6 % Normal 11-14.5 [facility] Comment on above: Performed By: #### L 200.32648 #### [facility] [address] [place] [address] Hematocrit (Bld) [Volume fraction] 40.3 % Normal 35.0-47.0 [facility] Comment on above: Performed By: #### L 200.76608 #### [facility] [address] [place] [address] Hemoglobin (Bld) [Mass/Vol] 12.5 g/dL Normal 11.5-15.5 [facility] Comment on above: Performed By: #### L 200.14374 #### [facility] [address] [place] [address] MCHC (RBC) [Mass/Vol] 31.0 g/dL Low 32.0-36.0 [facility] Comment on above: Performed By: #### L 200.51206 #### [facility] [address] [place] [address] MCV (RBC) [Entitic vol] 97.8 fL Normal 80.0-99.0 [facility] Comment on above: Performed By: #### L 200.33748 #### [facility] [address] [place] [address] Nucleated RBC/100 WBC (Bld) [Ratio] 0.0 % Normal Less than 1 [facility] Comment on above: Performed By: #### L 200.44817 #### [facility] [address] [place] [address] Platelet mean volume (Bld) [Entitic vol] 10.6 fL Normal 9.4-12.4 [facility] Comment on above: Performed By: #### L 200.04973 #### [facility] [address] [place] [address] PLT 193 K/CU MM Normal 150-450 [facility] Comment on above: Performed By: #### L 200.43709 #### [facility] [place] [address] RBC 4.12 M/CU MM Normal 3.90-5.30 [facility] Comment on above: Performed By: #### L 200.15076 #### [facility] [address] [place] [address] WBC 5.2 K/CUMM Normal 4.5-11.0 [facility] Comment on above: Performed By: #### L 200.80190 #### [facility] [address] [place] [address] CMPon 08-13-2021 Albumin [Mass/Vol] 3.1 g/dL Low 3.2-5.0 [facility] Comment on above: Performed By: #### L 500.01551, L500.63102 #### [facility] [address] [place] [address] Albumin/Globulin [Mass ratio] 1.2 {ratio} Normal 0.8-2.0 [facility] Comment on above: Performed By: #### L 500.67429, L500.92335 #### [facility] [address] [place] [address] ALK PHOS 60 U/L Normal 45-117 [facility] Comment on above: Performed By: #### L 500.73162, L500.07411 #### [facility] [address] [place] [address] ALT [Catalytic activity/Vol] 16 U/L Normal 13-61 [facility] Comment on above: Result Comment: RESU LTS MAY BE FALSELY DEPRESSED AFTER THE ADMINISTRATION OF SULFASALAZINE AND/OR SULFAPYRIDINE. Performed By: #### L 500.55863, L500.12307 #### [facility] [address] [place] [address] Anion gap [Moles/Vol] 5 mmol/L Normal 5-16 [facility] Comment on above: Performed By: #### L 500.95243, L500.86120 #### [facility] [place] [address] AST [Catalytic activity/Vol] 10 U/L Normal 8-34 [facility] Comment on above: Result Comment: RESU LTS MAY BE FALSELY DEPRESSED AFTER THE ADMINISTRATION OF SULFASALAZINE AND/OR SULFAPYRIDINE. Performed By: #### L 500.90985, L500.84284 #### [facility] [address] [place] [address] BILI TOTAL 0.30 MG/DL Normal 0.2-1.0 [facility] Comment on above: Performed By: #### L 500.27739, L500.12783 #### [facility] [address] [place] [address] Calcium [Mass/Vol] 9.1 mg/dL Normal 8.5-10.5 [facility] Comment on above: Result Comment: NOTE NEW NORMAL RANGE DUE TO REAGENT CHANGE Performed By: #### L 500.63131, L500.98145 #### [facility] [address] [place] [address] Chloride [Moles/Vol] 107 mmol/L Normal 98-107 [facility] Comment on above: Performed By: #### L 500.41535, L500.24832 #### [facility] [address] [place] [address] CO2 [Moles/Vol] 31.0 mmol/L Normal 21-32 [facility] Comment on above: Performed By: #### L 500.71697, L500.36413 #### [facility] [address] [place] [address] Creatinine [Mass/Vol] 1.03 mg/dL High 0.510-0.950 [facility] Comment on above: Result Comment: Rosalva ents receiving either N-Acetylcysteine (NAC) or Metamizole prior to venipuncture, may have falsely depressed results. Performed By: #### L 500.17690, L500.46946 #### [facility] [address] [place] [address] Globulin (S) [Mass/Vol] 2.6 g/dL Normal 2.2-4.2 M [facility] Comment on above: Performed By: #### L 500.62411, L500.87513 #### [facility] [address] [place] [address] Glucose [Mass/Vol] 83 mg/dL Normal 70-100 [facility] Comment on above: Result Comment: 70-1 00- Normal Fasting; 100-125 Impaired Fasting; greater than 126 on more than one result- Diabetes. ADA guidelines. Results may be falsely elevated after the administration of Sulfapyridine. Results may be falsely depressed after the administration of Sulfasalazine. Performed By: #### L 500.59316, L500.58932 #### [facility] [address] [place] [address] Potassium [Moles/Vol] 4.2 mmol/L Normal 3.5-5.1 [facility] Comment on above: Performed By: #### L 500.75324, L500.43803 #### [facility] [address] [place] [address] Protein [Mass/Vol] 5.7 g/dL Low 6.0-8.5 [facility] Comment on above: Performed By: #### L 500.88971, L500.85013 #### [facility] [address] [place], [place] [id number] Sodium [Moles/Vol] 143 mmol/L Normal 136-145 [facility] Comment on above: Performed By: #### L 500.66546, L500.87387 #### [facility] [place] [address] Urea nitrogen [Mass/Vol] 47 mg/dL High 7-26 [facility] Comment on above: Performed By: #### L 500.54644, L500.72841 #### [facility] [address] [place] [address] Urea nitrogen/Creatinine [Mass ratio] 45 mg/mg High 15-24 [facility] Comment on above: Performed By: #### L 500.29424, L500.10564 #### [facility] [address] [place], [place] [id number] GFR ESTon 08-13-2021 IF AMER Greater than 60 Normal [facility] Comment on above: Performed By: #### L 500.88881, L500.57463 #### [facility] [address] [place], [place] [id number] IF non-AFR AMER 53 Normal [facility] Comment on above: Performed By: #### L 500.07246, L500.76502 #### [facility] [address] [place], [place] [id number] UA COMPLETEon 08-13-2021 Color (U) Yellow Normal [facility] Comment on above: Performed By: #### L 600.00569 #### [facility] [address] [place] [phone] Glucose (U) [Mass/Vol] Negative Normal NORMAL [facility] Comment on above: Performed By: #### L 600.93425 #### [facility] [address] [place] [id number] UA APPEARANCE Clear Normal CLEAR [facility] Comment on above: Performed By: #### L 600.26816 #### [facility] [address] [place] [address] UA BILIRUBIN Negative Normal NEGATIVE [facility] Comment on above: Performed By: #### L 600.04283 #### [facility] [address] [place] [address] UA BLOOD Negative Normal NEGATIVE [facility] Comment on above: Performed By: #### L 600.04066 #### [facility] [address] [place] [address] UA KETONE Negative Normal NEGATIVE [facility] Comment on above: Performed By: #### L 600.44261 #### [facility] [address] [place] [address] UA LK ESTERASE Negative Normal NEGATIVE [facility] Comment on above: Performed By: #### L 600.32024 #### [facility] [address] [place] [address] UA NITRITE Negative Normal NEGATIVE [facility] Comment on above: Performed By: #### L 600.67886 #### [facility] [address] [place] [address] UA PH 5.0 Normal 5-6 [facility] Comment on above: Performed By: #### L 600.31578 #### [facility] [address] [place] [address]63 UA PROTEIN Negative Normal NEGATIVE [facility] Comment on above: Performed By: #### L 600.53484 #### [facility] [address] [place] [address] UA SPEC GRAV 1.024 Normal 1.005-1.030 [facility] Comment on above: Performed By: #### L 600.33270 #### [facility] [address] [place] [address] UA UROBILINOGEN Negative Normal NORMAL [facility] Comment on above: Performed By: #### L 600.26617 #### [facility] [address] [place] [address] XR KNEE LEFT STANDARD EXTEND ED VWon 01-10-2017 XR KNEE LEFT STANDARD EXTENDED VW Radiology exam is complete. No Radiologist dictation. Please follow up with ordering provider. Final result Normal [facility] XR KNEE RIGHT STANDARD EXTEN DED VWon 01-10-2017 XR KNEE RIGHT STANDARD EXTENDED VW Radiology exam is complete. No Radiologist dictation. Please follow up with ordering provider. Final result Normal [facility] Basic Metabolic Panelon 09-29 Anion gap 11 mmol/L Normal 7-13 [facility] Calcium 8.2 mg/dL Low 8.6-10.2 [facility] Chloride 103 mmol/L Normal 98-107 [facility] CO2 28 mmol/L Normal 22-29 [facility] Creatinine 0.96 mg/dL Critically high 0.50-0.90 [facility] eGFR (black) mL/min/{1.73_m2} Normal >60 [facility] Comment on above: Result Comment: >60 mL/min/1.73m2 EGFR, calc. for ages 18 and older using theMDRD formula (not corrected for weight), is valid for stablerenal function. eGFR (MDRD) 57.5 mL/min/{1.73_m2} Low >60 [facility] Comment on above: Result Comment: >60 mL/min/1.73m2 EGFR, calc. for ages 18 and older using theMDRD formula (not corrected for weight), is valid for stablerenal function. Glucose mass conc 80 mg/dL Normal 74-109 [facility] Potassium molar conc 4.3 mmol/L Normal 3.5-5.1 [facility] Sodium 142 mmol/L Normal 132-144 [facility] Urea nitrogen 31 mg/dL Critically high 8-23 [facility] CBC With Platelet No Differe ntialon 10-15-2016 Erythrocyte distribution width Auto Ratio (RBC) 16.7 % Critically high 11.5-14.5 [facility] Erythrocytes (RBC) 3.66 10*6/uL Low 4.20-5.40 [facility] Hematocrit (HCT) 32.8 % Low 37.0-47.0 [facility] Hemoglobin mass conc (Bld) 10.4 g/dL Low 12.0-16.0 [facility] MCH 28.6 pg Normal 27.0-31.3 [facility] MCHC mass conc (RBC) 31.9 % Low 33.0-37.0 [facility] MCV 89.6 fL Normal 82.0-100.0 [facility] Platelets 251 10*3/uL Normal 130-400 [facility] WBC (Leukocytes) 5.6 10*3/uL Normal 4.8-10.8 [facility] Basic Metabolic Panelon 09-29 Anion gap 12 mmol/L Normal 7-13 [facility] Calcium 8.5 mg/dL Low 8.6-10.2 [facility] Chloride 99 mmol/L Normal 98-107 [facility] CO2 29 mmol/L Normal 22-29 [facility] Creatinine 1.21 mg/dL Critically high 0.50-0.90 [facility] eGFR (black) 53.3 mL/min/{1.73_m2} Low >60 [facility] Comment on above: Result Comment: >60 mL/min/1.73m2 EGFR, calc. for ages 18 and older using theMDRD formula (not corrected for weight), is valid for stablerenal function. eGFR (MDRD) 44.0 mL/min/{1.73_m2} Low >60 [facility] Comment on above: Result Comment: >60 mL/min/1.73m2 EGFR, calc. for ages 18 and older using theMDRD formula (not corrected for weight), is valid for stablerenal function. Glucose mass conc 68 mg/dL Low 74-109 [facility] Potassium molar conc 4.4 mmol/L Normal 3.5-5.1 [facility] Sodium 140 mmol/L Normal 132-144 [facility] Urea nitrogen 29 mg/dL Critically high 8-23 [facility] CBC With Platelet No Differe ntialon 10-08-2016 Erythrocyte distribution width Auto Ratio (RBC) 17.0 % Critically high 11.5-14.5 [facility] Erythrocytes (RBC) 3.54 10*6/uL Low 4.20-5.40 [facility] Hematocrit (HCT) 32.0 % Low 37.0-47.0 [facility] Hemoglobin mass conc (Bld) 10.0 g/dL Low 12.0-16.0 [facility] MCH 28.3 pg Normal 27.0-31.3 [facility] MCHC mass conc (RBC) 31.3 % Low 33.0-37.0 [facility] MCV 90.4 fL Normal 82.0-100.0 [facility] Platelets 372 10*3/uL Normal 130-400 [facility] WBC (Leukocytes) 5.2 10*3/uL Normal 4.8-10.8 [facility] US DUP LOWER EXTREMITY LEFT VENon 09-26-2016 US DUP LOWER EXTREMITY LEFT ZEUS Exam: US DUP LOWER EXTREMITY LEFT VENCLINICAL: LEG SWELLING, PAIN, DVT SUSPECTED Imaging and analysis of flow in the left lower extremity reveals the deep veins to be readily compressible and free of thrombus from the groin to the knee. There is normal phasicity and color Doppler signal.The posterior calf veins that were visualized show no evidence of thrombus.IMPRESSIO N: NEGATIVE STUDY.Interpreted by:MIREYA Sanchezigned by:Clifford Hernandez MD09/26/16Final result Normal [facility] Basic Metabolic Panelon - Anion gap 12 mmol/L Normal 7-13 [facility] Calcium 7.4 mg/dL Low 8.6-10.2 [facility] Chloride 105 mmol/L Normal 98-107 [facility] CO2 21 mmol/L Low 22-29 [facility] Creatinine 0.96 mg/dL Critically high 0.50-0.90 [facility] eGFR (black) mL/min/{1.73_m2} Normal >60 [facility] Comment on above: Result Comment: >60 mL/min/1.73m2 EGFR, calc. for ages 18 and older using theMDRD formula (not corrected for weight), is valid for stablerenal function. eGFR (MDRD) 57.5 mL/min/{1.73_m2} Low >60 [facility] Comment on above: Result Comment: >60 mL/min/1.73m2 EGFR, calc. for ages 18 and older using theMDRD formula (not corrected for weight), is valid for stablerenal function. Glucose mass conc 85 mg/dL Normal 74-109 [facility] Potassium molar conc 4.0 mmol/L Normal 3.5-5.1 [facility] Sodium 138 mmol/L Normal 132-144 [facility] Urea nitrogen 22 mg/dL Normal 8-23 [facility] CBC With Platelet and Differ entialon 09-25-2016 Basophils Auto #/vol (Bld) 0.0 10*3/uL Normal 0.0-0.2 [facility] Basophils/100 WBC Auto (Bld) 0.3 % Normal [facility] Eosinophils 0.0 10*3/uL Normal 0.0-0.7 [facility] Eosinophils/100 leukocytes 0.4 % Normal [facility] Erythrocyte distribution width Auto Ratio (RBC) 15.6 % Critically high 11.5-14.5 [facility] Erythrocytes (RBC) 3.17 10*6/uL Low 4.20-5.40 [facility] Hematocrit (HCT) 28.4 % Low 37.0-47.0 [facility] Hemoglobin mass conc (Bld) 9.0 g/dL Low 12.0-16.0 [facility] Lymphocytes 0.9 10*3/uL Low 1.0-4.8 [facility] Lymphocytes/100 leukocytes 10.0 % Normal [facility] MCH 28.5 pg Normal 27.0-31.3 [facility] MCHC mass conc (RBC) 31.7 % Low 33.0-37.0 [facility] MCV 89.7 fL Normal 82.0-100.0 [facility] Monocytes 0.7 10*3/uL Normal 0.2-0.8 [facility] Monocytes/100 leukocytes 7.4 % Normal [facility] Neutrophils 7.7 10*3/uL Critically high 1.4-6.5 [facility] Neutrophils/100 leukocytes 81.9 % Normal [facility] Platelets 276 10*3/uL Normal 130-400 [facility] WBC (Leukocytes) 9.4 10*3/uL Normal 4.8-10.8 [facility] Encounters Encounter Date Encounter Type Care Provider Facility Start: 07-30-2024 End: 07-30-[address] Umberto Aquino MD Work Phone: [facility] Work Phone: Start: 07-30-2024 End: 07-30-[address] Amalia Ramos MD -[facility] Start: 07-30-2024 End: 07-30-2024 ambulatory Amalia FRANCISCO Facility:[facility] Start: 07-15-2024 ambulatory Umberto FRANCISCO Facili ty:[facility] Start: 07-15-2024 Registered Referred Umberto Aquino -[facility] Start: 04-16-2024 End: 04-16-2024 ambulatory Amalia FRANCISCO Facility:[facility] Start: 03-30-2024 End: 03-30-2024 ambulatory Umberto Aquino Facility:[facility] Start: 02-05-2024 End: 02-05-2024 ambulatory Umberto Aquino Facility:[facility] Start: 01-23-2024 End: 01-23-2024 ambulatory Umberto Aquino Facility:[facility] Start: 01-17-2024 End: 01-17-2024 ambulatory Umberto Aquino Facility:[facility] Start: 12-18-2021 ambulatory Facility:[facility] Start: 08-13-2021 End: 08-13-2021 Subsequent hospital visit by physician Umberto Aquino MD Work Phone: [facility] Comment on above: CLIENT BILL Start: 01-10-2017 End: 01-11-2017 Ambulatory ELISABET KATE [facility] Start: 11-28-2016 End: 11-29-2016 Ambulatory HOLLI MESA [facility] Start: 11-14-2016 End: 11-15-2016 Ambulatory ROSEMARIE PEDROZA [facility] Procedures Date Procedure Procedure Detail Performing Clinician Start: 07-15-2024 Vitamin D, 25-hydrox y measurement Dr. Umberto Aquino MD Work Phone: Comment on above: Vitamin D StatusDefi ciency: <20 ng/mL (50nmol/L)Insufficiency: 20-30 ng/mL (50-75 nmol/L)Sufficiency: 30-100 ng/mL (75-250 nmol/L)Toxicity: >100 ng/mL (>250 nmol/L) Start: 07-11-2020 Colonoscopy Umberto leo MD Work Phone: Start: 01-10-2017 Radiologic exam knee complete 4/more views ROSEMARIE PEDROZA Start: 11-28-2016 DISCHARGE PATIENT ROSEMARIE PEDROZA Start: 11-14-2016 IP CONSULT TO HOME C ARE NEEDS ROSEMARIE MUÑOZOR Start: 11-14-2016 APPLY DRESSING ROSEMARIE MUÑOZ OR Plan of Treatment Date Care Activity Detail Author Start: 07-11-2030 Colonoscopy COLONOSCOPY [facility] Start: 11-30-2021 Influenza vaccination INFLUENZA (Sea son Ended) [facility] Start: 04-01-2021 ADVANCE DIRECTIVE DISCUSSION ADVANCE DIRECTIVE DISCUSSION [facility] Start: 12-05-2011 BONE DENSITY BONE DENSITY [facility] Start: 12-05-2011 PNEUMOVAX AGE 65 AND OVER WITH 5YR LOOKBACK (#1) PNEUMOVAX AGE 65 AND OVER WITH 5YR LOOKBACK (#1) [facility] Start: 1996 SHINGRIX VACCINE (1 of 2) SHINGRIX V ACCINE (1 of 2) [facility] Start: 12-05-1991 COLOGUARD (FIT-DNA) COLOGUARD (FIT-D NA) [facility] Start: 12-05-[address] COLONOGRAPHY [facility] Start: 12-05-1991 DIABETES SCREEN DIABETES SCREEN [facility] Start: 12-05-1991 FECAL OCCULT BLOOD FECAL OCCULT BLOO D [facility] Start: 12-05-1991 LIPID SCREEN LIPID SCREEN [facility] Start: 12-05-1991 SIGMOIDOSCOPY SIGMOIDOSCOPY [facility] Start: 1986 Mammography MAMMOGRAM [facility] Start: 1965 Urine microalbumin profile DTAP,TDAP ,TD (1 - Tdap) [facility] Start: 1964 HEPATITIS C SCREENING HEPATITIS C SC REENING [facility] Start: 1958 Adult depression scr eening assessment DEPRESSION SCREENING [facility] Start: 12-05-1951 COVID-19 VACCINE (#1) COVID-19 VACCI NE (#1) [facility] Payers Date Payer Category Payer Unknown [id number] 2024 Medicaid [id number] 2024 Self-pay 2019 Medicare AETNA MEDICARE A ETNA MEDICARE ADVANTRA PPO [id number] 2019-Present [phone] [address] [place] [address] Medicare [id number] 2016 Medicare [id number] Private Health Insurance AETNA [facility] 101 [id number] Unknown [id number] 62 Unknown [id number] 62 Unknown [id number] 62 Unknown [id number] 62 Unknown [id number] 62 Unknown [id number] 62 Unknown [id number] 62 Social History Date Type Detail Facility Start: 12-22-2020 [facility] Start: 07-11-2020 Alcohol intake Current drinke r of alcohol (finding) [facility] Start: 12-29-2014 History SDOH Alcohol Comment rare [facility] Start: 1945 Sex Assigned At Not on file [facility] Start: 07-16-[address] [facility] Start: 07-16-[address] [facility] Start: 07-16-[address] 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 documented as of this encounter (statuses as of 08/14/2021) [facility] Evaluation note Note Date & Type Note Facility Evaluation note No assessment information availa ble [facility] Work Phone: Reason for referral (narrative) Note Date & Type Note Facility Reason for referral (narrative) No reason for referral information available [facility] Work Phone: Summary Purpose Family History No Family History Records Found Relationship Condition Age at Onset Recorded Date/T kirti mother Malignant neoplasm Unknown Advance Directives No Advanced Directives Records FoundNo Advanced Directives Records FoundNo Advanced Directives Records FoundNo Advanced Directives Records FoundNo Advanced Directives Records Found Chief Complaint and Reason for Visit Chief Complaint Admit Date LABWORK July 15, 2024 5:0 0am [facility] LAB WORK July 30, 2024 5:00 am Additional Source Comments INFORMATION SOURCE (unrecogn ized section and content) DATE CREATED AUTHOR 09/24/2017 [facility] DATE CREATED AUTHOR AUTHOR'S ORGANIZ ATION 09/25/2017 [facility] DATE CREATED AUTHOR AUTHOR'S ORGANIZ ATION 08/16/2021 [facility] joel [place] DATE CREATED AUTHOR AUTHOR'S ORGANIZ ATION 12/31/2021 [facility] DATE CREATED AUTHOR AUTHOR'S ORGANIZ ATION 08/28/2024 [facility] Source Comments (unrecognize d section and content) In the event this informatio n is protected by the Federal Confidentiality of Alcohol and Drug Abuse Patient Records regulations: The Federal rules restrict any use of the information to criminally investigate or prosecute any alcohol or drug abuse patient.[facility] Care Teams (unrecognized sec tion and content) 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 Umberto Aquino MD Primary Care Provider Active Team Status: Active Member Role Status Dates Dr. Umberto Aquino MD Primary Care Provider Active Start: July 15, 2024 Umberto FRANCISCO Attending Provider Active Start : July 15, 2024 Team Status: Inactive Member Role Status Dates Dr. Umberto Aquino MD Primary Care Provider Active Start: July 30, 2024 End: July 30, 2024 Dr. Amalia FRANCISCO MD Attending Provider Active Start: July 30, 2024 End: July 30, 2024 Goals (unrecognized section and content) Goals may be documented in a n alternate section FOR RECORDS PERTAINING TO PATIENTS WHO ARE OR HAVE BEEN ENROLLED IN A CHEMICAL DEPENDENCY/SUBSTANCEABUSE PROGRAM, SOME INFORMATION MAY BE OMITTED. This clinical summary was aggregated from multiple sources. Caution should be exercised in using it in the provision of clinical care. This summary normalizes information from multiple sources, and as a consequence, information in this document may materially change the coding, format and clinical context of patient data. In addition, data may be omitted in some cases. CLINICAL DECISIONS SHOULD BE BASED ON THE PRIMARY CLINICAL RECORDS. [facility]. provides no warranty or guarantee of the accuracy or completeness of information in this document.
[2024-10-13 08:48] LABS: Hematocrit 38.2 % (37-47); Hemoglobin 12.4 g/dL (12.0-15.0); Mean Corp Hgb Conc 32.5 g/dL (32-36); Mean Corpuscular Volume 93.4 fL (81-99); Mean Platelet Vol. 10.3 fl (6.2-12.0); Platelet Count 302 K/mm3 (150-450); RBC Distribution Width CV 13.3 % (11.6-14.6); RBC Distribution Width SD 45.5 fl (35.1-43.9); Red Blood Count 4.09 M/mm3 (4.2-5.4); White Blood Count 7.1 K/mm3 (4.4-11.0)
[2024-10-13 09:09] LABS: Anion Gap 16 (5-15); BUN 21 mg/dL (4-19); BUN/Creat Ratio 20.3 RATIO (10-20); Calcium,Total 9.4 mg/dL (7.6-11.0); Carbon Dioxide 25.7 mmol/L (21.0-32.0); Chloride 100 mmol/L (98-108); Glucose 93 mg/dL (70-99); Potassium 3.8 mmol/L (3.3-5.1)
== END ==
LOC: OLS.SW 05:00
PROVIDERS: PCP Family Medicine; Visit Provider Family Medicine
DX: E11.22 Type 2 diabetes mellitus with diabetic chronic kidney disease (principal); N18.9 Chronic kidney disease, unspecified; E55.9 Vitamin D deficiency, unspecified
CPT/HCPCS: 36415; 80048; 83036; 85027

== ENCOUNTER → 2024-10-30 12:00 | Outpatient (REF) | payer MEDICARE, MEDICAID, SELFPAY ==
[2024-10-30 14:07] LABS: Mucous, Urine 0 SEEN /hpf (<or=2+); Squamous Epithelial Cells - UA 0 SEEN /hpf (5-10)
[2024-10-30 15:22] LABS: Color, Urine Brown (Yellow); Glucose, Dipstick Normal (Normal); Ketone-Dipstick 5 mg/dl (Negative); Leukocyte Esterase-Dipstick 500 /ul (Negative); Nitrite-Dipstick Positive (Negative); Occult Blood-Urine 150 /ul (Negative); Protein-Dipstick 100 mg/dl (Negative); Specific Gravity, Urine 1.010 (1.002-1.030); Urine Bilirubin Dipstick Negative (Negative)
[2024-10-30 16:00] LABS: Red Blood Cells-Urine 10-25 SEEN /hpf (0-5)
== END ==
LOC: OLS.SW 12:00
PROVIDERS: PCP Family Medicine; Visit Provider Family Medicine
DX: R41.0 Disorientation, unspecified (principal); R30.0 Dysuria; M54.50 Low back pain, unspecified
CPT/HCPCS: 81001; 87077; 87086; 87088; 87186

== ENCOUNTER → 2025-01-07 05:00 | Outpatient (REF) | payer MEDICARE, MEDICAID, SELFPAY ==
[2025-01-07 09:26] LABS: Hematocrit 38.5 % (37-47); Hemoglobin 12.4 g/dL (12.0-15.0); Mean Corp Hgb Conc 32.2 g/dL (32-36); Mean Corpuscular Volume 94.1 fL (81-99); Mean Platelet Vol. 10.6 fl (6.2-12.0); Platelet Count 288 K/mm3 (150-450); RBC Distribution Width CV 14.0 % (11.6-14.6); RBC Distribution Width SD 48.9 fl (35.1-43.9); Red Blood Count 4.09 M/mm3 (4.2-5.4); White Blood Count 6.9 K/mm3 (4.4-11.0)
[2025-01-07 11:35] LABS: Anion Gap 14 (5-15); BUN 26 mg/dL (4-19); BUN/Creat Ratio 23.8 RATIO (10-20); Calcium,Total 8.8 mg/dL (7.6-11.0); Carbon Dioxide 25.7 mmol/L (21.0-32.0); Chloride 102 mmol/L (98-108); Glucose 86 mg/dL (70-99); Potassium 3.8 mmol/L (3.3-5.1)
== END ==
LOC: OLS.SW 05:00
PROVIDERS: PCP Family Medicine; Visit Provider Family Medicine
DX: E78.5 Hyperlipidemia, unspecified (principal); E11.22 Type 2 diabetes mellitus with diabetic chronic kidney disease; I82.409 Acute embolism and thrombosis of unspecified deep veins of unspecified lower extremity; N18.30 Chronic kidney disease, stage 3 unspecified
CPT/HCPCS: 36415; 80048; 83036; 85027